=== PATIENT | male | born 1960 | race Hispanic/Latino ===

== ENCOUNTER 2017-03-15 14:53 | Emergency (ER) | payer MEDICAID, OTHER, SELFPAY ==
[2017-03-15 17:06] LABS: #Basophils 0.1 thou/uL (0.0-0.2); #Eosinphils 0.4 thou/uL (0.0-0.7); #Lymphocytes 1.7 thou/uL (1.20-3.40); #Monocytes 0.7 thou/uL (0.11-0.59); #Neutrophils 5.5 thou/uL (1.40-6.50); %Basophils 0.8 % (0.0-1.0); %Monocytes 8.1 % (0.0-10.0); Hematocrit 45.4 % (42.0-52.0); Red Blood Cell (RBC) Count 4.73 mill/uL (4.70-6.10); White Blood Cell (WBC) Count 8.3 thou/uL (4.8-10.8)
[2017-03-15 17:07] LABS: Bilirubin Negative (Negative); Blood, Urine Negative (Negative); Glucose, Urine (Dipstick) Negative (Negative); Ketone, Urine Negative (Negative); Nitrite Negative (Negative); Protein, Urine (Dipstick) Negative (Neg-Trace)
[2017-03-15 17:09] LABS: Bacteria/HPF 3+ HPF (None Seen); Hyaline Casts/LPF 0-3 HYALINE CAST LPF (0-3 Hyaline); RBC/HPF None Seen HPF (0-3); Squamous Epithelial None Seen HPF (0-3)
[2017-03-15 17:20] LABS: Amphetamine Not Detected (NotDetected); Methamphetamine Not Detected (NotDetected)
[2017-03-15 17:21] LABS: Methadone Not Detected (NotDetected)
[2017-03-15 17:35] LABS: ALT (SGPT) 63 U/L (8-55); AST (SGOT) 48 U/L (5-34); Acetaminophen Less than 6.0 mcg/mL (10.0-30.0); Alkaline Phosphatase 138 U/L (40-150); Anion Gap 10 mmol/L (10-20); BUN (Urea Nitrogen) 11 mg/dL (8.4-25.7); Bilirubin, Total 0.5 mg/dL (0.2-1.2); CK (CPK) 74 U/L (30-200); Calc. Creatinine Clearance 0 mL/min (70-130); Calcium 9.2 mg/dL (7.8-10.44); Carbon Dioxide 24 mmol/L (22-29); Chloride 105 mmol/L (98-107); Estimated GFR-MDRD 66; Globulin 3.3 g/dL (2.4-3.5); Protein, Total 7.3 g/dL (6.0-8.3); Salicylate Less than 8.0 mg/dL (15.0-30.0)
[2017-03-15] MEDS ORDERED: chlordiazePOXIDE HCl 25 MG CAP PO SCH (17:45)
[2017-03-15] MEDS ORDERED: chlordiazePOXIDE HCl 25 MG CAP ONE (18:25)
[2017-03-15] MEDS ORDERED: traZODone HCl 50 MG TAB ONE (22:55)
[2017-03-15] MEDS ORDERED: Lisinopril 10 MG TAB ONE ×2 (22:58→23:08)
[2017-03-15] MEDS ORDERED: Varenicline Tartrate 0.5 MG TAB PO SCH (23:15)
[2017-03-15] MEDS ORDERED: Atorvastatin Calcium 40 MG TAB PO SCH (23:15)
[2017-03-16] MEDS ORDERED: Varenicline Tartrate 0.5 MG TAB PO SCH (09:00)
[2017-03-16] MEDS ORDERED: NALTREXONE 50 MG PO SCH (09:00)
[2017-03-16] MEDS ORDERED: Atorvastatin Calcium 40 MG TAB PO SCH (21:00)
== END 2017-03-16 05:47 ==
LOC: ERS 14:53
DX: R45.851 Suicidal ideations (principal); F41.9 Anxiety disorder, unspecified; F31.9 Bipolar disorder, unspecified; E78.5 Hyperlipidemia, unspecified; I25.2 Old myocardial infarction; I10 Essential (primary) hypertension; K21.9 Gastro-esophageal reflux disease without esophagitis; Z87.891 Personal history of nicotine dependence; Z79.82 Long term (current) use of aspirin; Z79.899 Other long term (current) drug therapy
CPT/HCPCS: 36415; 80053; 80306; 80307; 81003; 81015; 82550; 84443; 85025; 93005

== ENCOUNTER 2017-05-05 04:53 | Observation (INO) | payer MEDICAID ==
[2017-05-05] MEDS ORDERED: Acetaminophen 500 MG TAB ONE (05:25)
[2017-05-05] MEDS ORDERED: Ketorolac Tromethamine 30 MG/ML VIAL ONE (05:25)
[2017-05-05 06:01] LABS: PTT 29.6 SEC (22.9-36.1); Prothrombin Time 13.5 SEC (12.0-14.7)
[2017-05-05 06:09] LABS: #Basophils 0.1 thou/uL (0.0-0.2); #Eosinphils 0.3 thou/uL (0.0-0.7); #Lymphocytes 2.2 thou/uL (1.20-3.40); #Monocytes 0.7 thou/uL (0.11-0.59); %Eosinophils 3.5 % (0.0-10.0); %Lymphocytes 23.3 % (21.0-51.0); %Monocytes 7.5 % (0.0-10.0); %Neutrophils 64.8 % (42.0-75.0); Hemoglobin 14.6 g/dL (14.0-18.0); Mean Corpuscular HGB CONC 33.2 g/dL (32.0-36.0); Mean Corpuscular Hemoglobin 31.4 pg (27.0-31.0); Mean Corpuscular Volume 94.6 fl (80.0-94.0); Mean Platelet Volume 8.1 fL (7.4-10.4); Platelet Count 209 thou/uL (130-400); RBC Distribution Width 12.8 % (11.5-14.5); Red Blood Cell (RBC) Count 4.66 mill/uL (4.70-6.10); White Blood Cell (WBC) Count 9.3 thou/uL (4.8-10.8)
[2017-05-05] MEDS ORDERED: traMADol HCl 50 MG TAB PO PRN ×2 (06:13)
[2017-05-05] MEDS ORDERED: Dextrose 5% in Water 1,000 ML IV PRN (06:13)
[2017-05-05] MEDS ORDERED: Dextrose 50% Abboject 50 ML SYRINGE SLOW IVP PRN (06:13)
[2017-05-05] MEDS ORDERED: Ondansetron HCl/PF 4 MG/2 ML Vial IVP PRN (06:13)
[2017-05-05] MEDS ORDERED: Ondansetron ODT 4 MG TAB PO PRN (06:13)
[2017-05-05 06:15] LABS: ALT (SGPT) 26 U/L (8-55); AST (SGOT) 33 U/L (5-34); Albumin 4.3 g/dL (3.5-5.0); Alkaline Phosphatase 116 U/L (40-150); Anion Gap 12 mmol/L (10-20); BUN (Urea Nitrogen) 12 mg/dL (8.4-25.7); Bilirubin, Total 0.9 mg/dL (0.2-1.2); Calc. Creatinine Clearance 0 mL/min (70-130); Calcium 9.4 mg/dL (7.8-10.44); Carbon Dioxide 24 mmol/L (22-29); Chloride 103 mmol/L (98-107); Estimated GFR-MDRD 68; Globulin 2.9 g/dL (2.4-3.5); Glucose 96 mg/dL (70-105); Lipase 29 U/L (8-78); Potassium 4.1 mmol/L (3.5-5.1); Protein, Total 7.2 g/dL (6.0-8.3); Sodium 135 mmol/L (136-145)
[2017-05-05] MEDS: Acetaminophen 325 MG TAB PO SCH ×4 (06:15→23:49)
[2017-05-05] MEDS ORDERED: traMADol HCl 50 MG TAB ONE (06:33)
--- NOTE | 2017-05-05 07:10 | HP ---
DATE OF ADMISSION: 05/05/2017 ATTENDING PHYSICIAN: Dr. Marr HISTORY OF PRESENT ILLNESS: Thi Hinton is a 57-year-old gentleman with a past medical history of hepatitis C, alcohol abuse, multiple CVAs with right-sided deficit/weakness, seizures and hypertensi on who presented to [facility] status post fall. Per patient, he was attempting to ambulate witho ut his cane and fell in his bedroom striking his lower abdomen on the bedpost. The patient denies lo ss of consciousness or head trauma. He was evaluated in the emergency room and found to have a large abdominal wall hematoma. The patient also endorses right lower extremity pain x2 days with calf ten derness. At the time of my evaluation, the patient had a chief complaint of right lower quadrant abd ominal pain and right leg pain which was not controlled with Tylenol or Toradol. He rates his pain a s a 10/10. The patient does seem to be a poor historian and has difficulty recalling some details. History obtained from patient and records review. ALLERGIES: Patient denies. HOME MEDICATIONS: The patient states he is on multiple blood pressure medications, but does not know names or doses. The patient states pharmacy is [facility] in [place]. PAST MEDICAL HISTORY: The patient states hypertension, history of stroke, history of seizure, record s review reveals the patient has a history of coronary artery disease, stroke x5 with residual right- sided deficit, hepatitis C. Anxiety and bipolar disorder. PAST SURGICAL HISTORY: Significant for a cholecystectomy, cardiac stenting and right knee surgery. SOCIAL HISTORY: The patient lives with multiple roommate's, states that he is a previous heavy drink er, but last drink was 2 months ago. Prior smoker, approximately [id number] history, last use of c igarettes 2 months ago. Denies illicit drug use. REVIEW OF SYSTEMS: Negative except as indicated in the HPI. PHYSICAL EXAMINATION: VITAL SIGNS: Blood pressure 150/92, pulse 62, respirations 20, temperature 98.7, O2 sat 100% on room air. GENERAL: A well-built male in no acute distress, resting in bed. HEAD: Normocephalic, atraumatic. EYES: Pupils were MARGE. Extraocular movements are intact. There is some evidence of very mild faci al drooping. NECK: Supple. Trachea is midline. Range of motion within normal limits for patient. CHEST/PULMONARY: Atraumatic. No tenderness to palpation. Normal work of breathing, symmetric rise. Lungs are clear to auscultation bilaterally. CARDIOVASCULAR: Regular rate and rhythm, no obvious murmurs, rubs or gallops. GASTROINTESTINAL: The abdomen is soft with an abrasion and a hematoma to the right lower quadrant. There is minimal tenderness to palpation. There is no guarding or rebound. There is no rigidity. T here are no signs of peritonitis. BACK: Reported as being within normal limits. MUSCULOSKELETAL: Bilateral upper extremities within normal limits. Left lower extremity within norm al limits. Right lower extremity with tenderness to palpation over the calf. Pulses are 2+ bilatera lly. There is no pitting edema noted. NEUROLOGIC: GCS is 15. LABORATORY DATA: WBC 9.3, hemoglobin 14.6, hematocrit 44.1, platelet count 209. INR is 1.0. Sodium 135, potassium 4.1, chloride 103, carbon dioxide 24, BUN 12, creatinine 1.12, glucose 96, AST and AL T within normal limits. Toxicology and alcohol levels pending. RADIOGRAPHIC FINDINGS: Official read for CT of the abdomen and pelvis is pending. There does appear to be a large hematoma in the right lower quadrant/abdominal wall per ER MDS discussion with radiolo gist, there is no evidence of active extravasation at this time. Multiple renal cysts and hepatic cy sts are noted. ASSESSMENT: 1. Status post mechanical fall. 2. Abdominal wall hematoma. 3. Acute traumatic pain. 4. Right lower extremity pain. 5. History of multiple cerebrovascular accidents with right-sided deficit. 6. History of hypertension. 7. History of ETOH abuse, last drink 2 months ago. PLAN: Admit to trauma services for observation and pain control. Right lower extremity ultrasound. Repeat H&H later this a.m. Physical therapy for mobilization and ambulation. Pain management. Plans for admission were discussed with the patient and all questions were answered at the time of is dictation. Trauma attending has been notified of admission.
--- NOTE | 2017-05-05 07:19 | ULT ---
ULTRASOUND WITH DOPPLER DUPLEX VENOUS LOWER EXTREMITY RIGHT: HISTORY: 57-year-old male with right lower extremity pain and edema. TECHNIQUE: Color flow Doppler, spectral waveform analysis of pulsed Doppler, and monson-scale imaging with manuel brody and augmentation, were used to evaluate the right common femoral, femoral, popliteal, posterior tibial, and superficial femoral, veins; and the proximal portions of the profunda femoral and greater saphenous, veins. FINDINGS: There is normal compressibility, demonstration of blood flow by color Doppler and pulsed Doppler, and response to augmentation, in all interrogated veins. IMPRESSION: Negative. No deep vein thrombosis in the right lower extremity. jn [] POS: OFF
--- NOTE | 2017-05-05 07:48 | CT ---
PRELIMINARY REPORT/[facility]/EMERGENCY AFTER HOURS PROCEDURE: EXAM: CT Abdomen and Pelvis With Intravenous Contrast EXAM DATE/TIME: Exam ordered 05/05/2017 5:34 AM CLINICAL HISTORY: 57 years old, male; Pain; Abdominal pain; Generalized; Patient HX: Pain, S/P fall TECHNIQUE: Axial computed tomography images of the abdomen and pelvis with intravenous contrast. Coronal reformatted images were created and reviewed. CONTRAST: 100 mL of ISOVUE administered intravenously. COMPARISON: No relevant prior studies available. FINDINGS: Lower thorax: There is subpleural atelectasis of the dependent portions of the lungs. ABDOMEN: Liver: There are polycystic kidneys and liver cysts suggestive of adult polycystic kidney disease. Gallbladder and bile ducts: There has been a cholecystectomy. No ductal dilation. Pancreas: The pancreas appears normal. No ductal dilation. Spleen: The spleen is normal. Adrenals: The adrenal glands are normal. Kidneys and ureters: See above. Stomach and bowel: The stomach is normal. The duodenum is unremarkable. No obstruction. No mucosal thickening. Appendix: No findings to suggest acute appendicitis. PELVIS: Bladder: Normal. No mass. Reproductive: Unremarkable as visualized. ABDOMEN and PELVIS: Intraperitoneal space: Normal. No free air. No significant fluid collection. Bones/joints: No acute fracture. No dislocation. Soft tissues: There is a 6.3 x 2.6 x 3.9 cm anterior RIGHT pelvic subcutaneous hematoma. Small hyperd ensity within the hematoma is noted which may represent active extravasation. There is a fatcontainin g umbilical hernia. Vasculature: Normal. No abdominal aortic aneurysm. Lymph nodes: Normal. No enlarged lymph nodes. IMPRESSION: There is a 6.3 x 2.6 x 3.9 cm anterior RIGHT pelvic wall subcutaneous hematoma. Small hyperdensity wi thin the hematoma is noted which may represent active extravasation. THIS REPORT CONTAINS FINDINGS THAT MAY BE CRITICAL TO PATIENT CARE. The findings were verbally commun icated via telephone conference with Stephanie Garces at 5:54 AM BACK END ENGINEER on 05/05/2017. The findings were acknowled ged and understood. Thank you for allowing us to participate in the care of your patient. Dictated and Authenticated by: Sathya Santos MD 05/05/2017 5:57 AM Central Time ([place] & [place]) FINAL REPORT CT ABDOMEN AND PELVIS WITH IV CONTRAST: I agree with the preliminary report given by Dr. Sathya Santos of [facility]. POS: [facility]
[2017-05-05] MEDS ORDERED: traMADol HCl 50 MG TAB PO SCH (09:30)
[2017-05-05] MEDS: Famotidine 20 MG TAB PO SCH ×2 (09:54→20:28)
[2017-05-05] MEDS: Sodium Chloride 0.9% 1,000 ML IV SCH ×2 (10:09→20:28)
[2017-05-05 10:55] LABS: Hemoglobin 14.2 g/dL (14.0-18.0)
[2017-05-05] MEDS: traMADol HCl 50 MG TAB PO SCH ×3 (12:50→23:48)
[2017-05-05] MEDS ORDERED: Iopamidol 370 76% 100 ML VIAL ONE (13:13)
[2017-05-05] MEDS ORDERED: Lisinopril 10 MG TAB PO SCH (16:15)
[2017-05-05] MEDS: Ibuprofen 600 MG TAB PO PRN (16:20)
[2017-05-05 16:22] LABS: Amphetamine Not Detected (NotDetected); Barbiturates Screen Detected (NotDetected); Benzodiazepine Screen Detected (NotDetected); Cocaine Metabolite Screen Not Detected (NotDetected); Medtox Control Line Valid? VALID (VALID); Medtox Reader # READER 1; Methadone Not Detected (NotDetected); Methamphetamine Not Detected (NotDetected); Opiate Screen Detected (NotDetected); Oxycodone Screen Not Detected (NotDetected); Phencyclidine (PCP) Not Detected (NotDetected); THC/Cannabinoid Screen Not Detected (NotDetected); Tricyclic Screen Not Detected (NotDetected)
--- NOTE | 2017-05-05 20:17 | PRG ---
DATE OF SERVICE: 05/05/2017 SUBJECTIVE: The patient is status post ground level fall in which he struck his lower abdomen on a b edpost. The patient was admitted for serial exams and repeat labs when it was noted on CT scan he griffin d a moderate size abdominal wall hematoma. This morning, the patient had no complaints. His pain wa s relatively well controlled. He had not been out of bed yet and had not been eating due to his n.p. o. status. The patient denies nausea or vomiting at this time. PHYSICAL EXAMINATION: VITAL SIGNS: Temperature is 98.0, heart rate 72, blood pressure 169/98, respirations 20, oxygen satu ration 99% on room air. GENERAL: The patient is resting comfortably in bed. He is alert and oriented x3. Prewitt coma scal e is 15. HEENT: Unremarkable. LUNGS: Clear to auscultation with good inspiratory and expiratory effort. HEART: Regular rate and rhythm. ABDOMEN: Soft with contusion noted in the right lower quadrant. The patient has an ice pack and Taz wrap around it, which we are going to replace with abdominal binder. Pelvis is stable. EXTREMITIES: The patient is neurovascularly intact x4. LABORATORY DATA: White blood cell count 9.3, hemoglobin 14.6, hematocrit 44.1, and platelets 209. S odium 135, potassium 4.1, chloride 103, CO2 of 24, BUN 12, creatinine 1.12, glucose 96. LFTs are unr emarkable. There are no radiographs to review this morning. ASSESSMENT AND PLAN: 1. Status post ground level fall. 2. Right lower quadrant abdominal wall contusion. Plan will be to continue serial exams, p.o. pain meds. Diet is tolerated and plan for discharge in t morning. The patient was evaluated and examined with Dr. Rushing during rounds this morning.
[2017-05-05] MEDS: traMADol HCl 50 MG TAB PO PRN (20:28)
[2017-05-05] MEDS: Lorazepam 1 MG TAB PO SCH (20:28)
[2017-05-05] MEDS ORDERED: hydrALAZINE 20 MG/ML VIAL SLOW IVP PRN (20:47)
[2017-05-05] MEDS ORDERED: traZODone HCl 50 MG TAB PO SCH (21:00)
[2017-05-05] MEDS ORDERED: Prevnar 13-Val Conj/PF 0.5 ML SYRINGE IM ONE (21:00)
--- NOTE | 2017-05-05 21:13 | PRG ---
DATE OF SERVICE: 05/05/2017 SUBJECTIVE: This is a 57-year-old male admitted earlier today status post ground level fall with abd ominal wall hematoma. The patient was started on a diet earlier today. Pain medications were adjust ed. On trauma evaluation, the patient was resting in bed and states pain was better controlled and p atient was started on home medications. OBJECTIVE: VITAL SIGNS: Vital signs reviewed. The patient is moderately hypertensive, but did receive his home dose of lisinopril recently. GENERAL: The patient is resting in bed, in no acute distress. RESPIRATORY: Breathing is nonlabored. ABDOMEN: Soft with mild tenderness, no guarding, rigidity, or signs of peritonitis. PLAN: Continue care as ordered. Continue to monitor. The patient is currently tolerating diet. If able to ambulate in a.m. and pain controlled, will be candidate for discharge.
[2017-05-06 02:29] VITALS: BMI 25.7
[2017-05-06 05:30] LABS: #Eosinphils 0.3 thou/uL (0.0-0.7); #Lymphocytes 1.8 thou/uL (1.20-3.40); #Monocytes 0.7 thou/uL (0.11-0.59); #Neutrophils 4.3 thou/uL (1.40-6.50); %Basophils 0.6 % (0.0-1.0); %Eosinophils 4.4 % (0.0-10.0); %Lymphocytes 25.2 % (21.0-51.0); %Monocytes 9.6 % (0.0-10.0); %Neutrophils 60.2 % (42.0-75.0); Mean Corpuscular HGB CONC 32.5 g/dL (32.0-36.0); Mean Corpuscular Hemoglobin 30.7 pg (27.0-31.0); Mean Corpuscular Volume 94.6 fl (80.0-94.0); Platelet Count 174 thou/uL (130-400); RBC Distribution Width 12.7 % (11.5-14.5); Red Blood Cell (RBC) Count 4.24 mill/uL (4.70-6.10); White Blood Cell (WBC) Count 7.1 thou/uL (4.8-10.8)
[2017-05-06] MEDS: traMADol HCl 50 MG TAB PO SCH ×2 (05:49→12:07)
[2017-05-06] MEDS: Acetaminophen 325 MG TAB PO SCH ×2 (05:50→12:07)
[2017-05-06] MEDS: Lorazepam 1 MG TAB PO SCH (08:11)
[2017-05-06] MEDS: Famotidine 20 MG TAB PO SCH (08:11)
[2017-05-06 08:14] VITALS: TEMP 97.5
[2017-05-06] MEDS ORDERED: Lisinopril 10 MG TAB PO SCH (09:00)
[2017-05-06] MEDS ORDERED: FLUoxetine HCl 20 MG CAP PO SCH (09:00)
[2017-05-06] MEDS ORDERED: Amlodipine 5 MG TAB PO SCH (09:00)
[2017-05-06] MEDS: Ibuprofen 600 MG TAB PO PRN (11:16)
[2017-05-06] MEDS: traMADol HCl 50 MG TAB PO PRN (12:08)
[2017-05-06 12:25] VITALS: BP 158/114
--- NOTE | 2017-05-08 11:20 | DIS ---
DATE OF ADMISSION: 05/05/2017 DATE OF DISCHARGE: 05/06/2017 ADMISSION DIAGNOSES: 1. Status post mechanical fall. 2. Abdominal wall hematoma. 3. Acute traumatic pain. 4. Right lower extremity pain. 5. History of multiple cerebrovascular accidents with right-sided deficit. 6. History of hypertension. 7. History of alcohol abuse. CONSULTATIONS: None. PROCEDURES: None. SUMMARY: The patient is a 57-year-old man who reportedly fell and struck his abdomen on a bedpost. HOSPITAL COURSE: The patient was brought to the Emergency Department, evaluated, examined and noted to have moderate size abdominal wall hematoma. He will be admitted overnight for pain control and to monitor his exam. The patient in the following day was tolerating a diet. He was ambulatory and hi s pain was controlled. The patient will be discharged home with abdominal binder and will follow up with the trauma clinic in 2 weeks, sooner as needed.
== END 2017-05-06 12:41 | disposition home or self-care (01) ==
LOC: ERS 04:53 → SURG A 06:00
PROVIDERS: ADMIT Surgery; ATTEND Surgery
DX: S30.1XXA Contusion of abdominal wall, initial encounter (principal); G89.11 Acute pain due to trauma; M79.661 Pain in right lower leg; I69.351 Hemiplegia and hemiparesis following cerebral infarction affecting right dominant side; I10 Essential (primary) hypertension; R56.9 Unspecified convulsions; I25.10 Atherosclerotic heart disease of native coronary artery without angina pectoris; F42.9 Obsessive-compulsive disorder, unspecified; F31.9 Bipolar disorder, unspecified; F10.11 Alcohol abuse, in remission; W18.30XA Fall on same level, unspecified, initial encounter; Y93.01 Activity, walking, marching and hiking; Y92.092 Bedroom in other non-institutional residence as the place of occurrence of the external cause; Z79.899 Other long term (current) drug therapy; Z90.49 Acquired absence of other specified parts of digestive tract; Z98.890 Other specified postprocedural states; Z86.19 Personal history of other infectious and parasitic diseases; Z87.891 Personal history of nicotine dependence
CPT/HCPCS: 36415; 74177; 80053; 80306; 80307; 83690; 85025; 85610; 85730; 96361; 96374; 96375; G0378; G0390; G8978-GP-CL; G8979-GP-CJ; J0360; J1885; J2270

== ENCOUNTER 2017-08-17 16:37 | Emergency (ER) | payer MEDICARE, MEDICAID | END 2017-08-17 18:40 | disposition home or self-care (01) | LOC: ERS 16:37 | DX: H60.92 Unspecified otitis externa, left ear (principal); E78.5 Hyperlipidemia, unspecified; I25.2 Old myocardial infarction; K21.9 Gastro-esophageal reflux disease without esophagitis; F41.9 Anxiety disorder, unspecified; F31.9 Bipolar disorder, unspecified; Z86.73 Personal history of transient ischemic attack (TIA), and cerebral infarction without residual deficits; Z87.891 Personal history of nicotine dependence; Z79.899 Other long term (current) drug therapy | CPT/HCPCS: 99283 ==

== ENCOUNTER 2017-08-27 09:40 | Emergency (ER) | payer MEDICARE, MEDICAID | END 2017-08-27 10:27 | disposition home or self-care (01) | LOC: ERS 09:40 | DX: I10 Essential (primary) hypertension (principal); H60.90 Unspecified otitis externa, unspecified ear; E78.5 Hyperlipidemia, unspecified; I25.2 Old myocardial infarction; K21.9 Gastro-esophageal reflux disease without esophagitis; F31.9 Bipolar disorder, unspecified; F41.9 Anxiety disorder, unspecified; Z86.73 Personal history of transient ischemic attack (TIA), and cerebral infarction without residual deficits; Z87.891 Personal history of nicotine dependence; Z79.82 Long term (current) use of aspirin; Z79.899 Other long term (current) drug therapy | CPT/HCPCS: 99283 ==

== ENCOUNTER 2018-06-18 01:02 | Emergency (ER) | payer MEDICARE ==
[2018-06-18] MEDS ORDERED: Acetaminophen 500 MG TAB ONE (01:42)
== END 2018-06-18 01:47 | disposition home or self-care (01) ==
LOC: ERS 01:02
DX: H60.91 Unspecified otitis externa, right ear (principal); I25.2 Old myocardial infarction; I10 Essential (primary) hypertension; E78.5 Hyperlipidemia, unspecified; K21.9 Gastro-esophageal reflux disease without esophagitis; Z87.891 Personal history of nicotine dependence; Z86.73 Personal history of transient ischemic attack (TIA), and cerebral infarction without residual deficits
CPT/HCPCS: 99283

== ENCOUNTER 2019-03-21 01:14 | Observation (INO) | payer MEDICARE ==
--- NOTE | 2019-03-21 02:24 | PDOC.FPRHP ---
- History of Present Illness Chief Complaint: Right-Sided Facial Drooping, Weakness History of Present Illness: Mr. Hinton is a 59 y/o male with a PMH significant for multiple CVAs, CAD and HTN as well as MDD and recent suicidal ideation who presents to the ED following subjective weakness. He states that he had been at his in-patient psychiatric facility when he noticed subjective facial drooping, accompanied by dysarthria, right-sided weakness, nausea and vomiting. He felt nauseous and unsteady on his feet and felt that he was having another stroke, which prompted his trip to the ED. He denies any fevers, chills, changes in vision/hearing, chest pain, SOB, ABD pain, dysuria, hematuria or bloody stools. When questioned specifically about his psychiatric history, he denied active suicidal or homicidal ideal. ED Course: CTA Head/Neck revealed Left ICA stenosis of ~50%. - Allergies/Adverse Reactions Allergies Allergy/AdvReac Type Severity Reaction Status Date / Time No Known Drug Allergies Allergy Verified 08/23/15 19:36 - Home Medications Medication Instructions Recorded Confirmed Type Amlodipine [Norvasc] 5 mg PO DAILY #30 tab 08/07/16 05/05/17 Rx Lisinopril [Zestril] 10 mg PO DAILY #30 tab 08/07/16 05/05/17 Rx FLUoxetine HCl 20 mg PO DAILY 05/05/17 05/05/17 History LORazepam [Lorazepam] 0.5 mg PO BID 05/05/17 05/05/17 History Phenytoin Sodium Extended 200 mg PO HS 05/05/17 05/05/17 History [Dilantin] traZODone HCl [Trazodone HCl] 50 mg PO HS 05/05/17 05/05/17 History Acetaminophen [Tylenol Regular 650 mg PO Q6H tab 05/06/17 Rx Strength] Ibuprofen [Motrin] 600 mg PO Q8H PRN tab 05/06/17 Rx traMADol HCl [Ultram] 50 mg PO Q6H PRN #30 tab 05/06/17 Rx traMADol HCl [Ultram] 50 mg PO Q6HR #30 tab 05/06/17 Rx Comments: Above medication regimen was obtained via chart review. - History PMHx: Multiple TIAs, CAD, HTN, MDD PSHx: None FHx: +DM2, +HTN, +MDD Social: Previously abused EtOH and tobacco, but states that he has not had either since . Denies drug abuse. Code: Full - Patient stated that he had an [id number] DNAR that was signed by his medical power of trial attorney. Will investigate further. - Review of Systems General: reports: fatigue. denies: fever/chills, weight/appetite/sleep changes , night sweats Eyes: denies: eye pain, vision changes ENT: denies: nasal congestion, rhinorrhea Respiratory: reports: exercise intolerance. denies: cough, congestion, shortness of breath Cardiovascular: denies: chest pain, palpitation Gastrointestinal: reports: nausea. denies: vomiting, diarrhea, constipation, abdominal pain, GI bleeding Genitourinary: denies: dysuria, polyuria Skin: denies: rashes, lesions Musculoskeletal: denies: pain, tenderness Neurological: reports: weakness, other (Subjective right-sided weakness and facial drooping.) Psychological: reports: anxiety, depression - Vital signs BP: [149/90] HR: [61] RR: [18] Tmax: [97.8] Pox: [97]% on [Room Air] Wt: [] - Physical Exam Constitutional: NAD, awake, alert and oriented, well developed HEENT: normocephalic and atraumatic, PERRLA, EOMI, conjunctiva clear, no scleral icterus, grossly normal vision, grossly normal hearing, normal nasal mucosa, MMM, oropharynx clear, good dention Neck: supple, FROM, trachea midline, no LAD, no JVD Chest: no-tender to palpation, no lesions Heart: RRR, normal S1/S2, no murmurs/rubs/gallops, pulses present, no edema Lungs: CTAB, no respiratory distress, good air movement, no rales/rhonchi, no wheezing, no retractions Abdomen: soft, non-tender, bowel sounds present, no masses/distention, no hernias Musculoskeletal: normal structure, ROM grossly normal Neurological: other (Mild right-sided facial drooping, audible dysarthria, + finger to nose on right side) Skin: no rash/lesions, capillary refill <2 seconds Heme/Lymphatic: no unusual bruising or bleeding, no purpura, no petechia, no LAD Psychiatric: intact recent and remote memory FMR H&P: Results - Labs Result Diagrams: 03/21/19 03:16 03/21/19 03:16 FMR H&P: A/P - Problem List (1) MDD (major depressive disorder) Current Visit: Yes Status: Acute Code(s): F32.9 - MAJOR DEPRESSIVE DISORDER , SINGLE EPISODE, UNSPECIFIED (2) Suicidal behavior Current Visit: Yes Status: Acute Code(s): R46.89 - OTHER SYMPTOMS AND SIGNS INVOLVING APPEARANCE AND BEHAVIOR (3) TIA (transient ischemic attack) Current Visit: Yes Status: Acute Code(s): G45.9 - TRANSIENT CEREBRAL ISCHEMIC ATTACK, UNSPECIFIED (4) CHARLETTE (acute kidney injury) Current Visit: No Status: Acute Code(s): N17.9 - ACUTE KIDNEY FAILURE, UNSPECIFIED (5) CVA (cerebral vascular accident) Current Visit: No Status: Acute Code(s): I63.9 - CEREBRAL INFARCTION, UNSPECIFIED (6) History of bipolar disorder Current Visit: No Status: Acute Code(s): Z86.59 - PERSONAL HISTORY OF OTHER MENTAL AND BEHAVIORAL DISORDERS - Plan Patient is a 59 y/o male admitted to the Stroke Floor following an episodes of subjective facial drooping, dysarthria, difficulty with ambulation, and unilateral weakness. 1. TIA -Patient states that subjective neurologic symptoms have since improved and that he is at his baseline -Imaging performed at outside ED was negative for new-onset ischemic / hemorrhagic event -Difficult to fully assess based on extensive history of CVAs -Neuro Checks Q4H -ASA, statin -Allow for Permissive Hypertension 2. Suicidal Ideation -Previously at in-patient psychiatric facility due to self-admitted suicidal ideation -Ensure sitter is present during hospital stay -Adjusted meal silverware -Will confirm DNAR status 3. Carotid Artery Stenosis -Measured to be ~50% at outside facility -Does not meet requirement for surgical intervention -Continue to monitor and ensure statin compliance Code: DNAR - Will continue to evaluate Diet: Heart Healthy incl. Low Sodium Activity: Strict Bedrest Dispo: Patient is currently admitted to the Stroke Floor for observation. Based on imaging and physical evaluation, CVA appears unlikely at this point. Allow for Permissive HTN and trend Neuro Checks Q4H. Expected LOS < 24H. FMR H&P: Upper Level - Pertinent history 59 y/o M PMHx CVA, CAD, HTN, HLD, Bipolar II, h/o psychosis, recent suicidal ideations admitted to [facility] since 03/18/19 presents to ED for new neurologic deficits. The patient reports he was at [facility] and began feeling nausea and had an episode of emesis. He then felt like he was having a stroke with worsened slurred speech and left sided weakness. He reports a H/A that had been ongoing for 3 days now. He states the weakness has improved since going to the ED. He was seen first in [facility] and given aspirin. His CTA there showed 50% stenosis of the origin of his L internal carotid artery. He was transferred here for concern he might need surgery. - Pertinent findings BP: 149/90, MAP: 109, Pulse: 61, Resp: 18 (Non-Labored), Temp: 97.8 (Oral), O2 sat: 97 on (Room Air) PE: Gen - alert, oriented, NAD CV - RRR, no murmurs Lungs - CTAB, no wheezes Abd - supraumbilical hernia that is reducible, NTTP Neuro - CN II-XII intact with the exception of some mild R facial droop, 5/5 strength in all extremities Labs: Trop < 0.017, PT 11.1, INR 1.1, PTT 26.9, BUN 27, Cr 1.5, GFR 51 CT head - no acute change CTA head/neck - 50% stenosis at origin of L internal carotid artery - Plan Date/Time: 03/21/19 0223 IJenna MD, PGY-3, have evaluated this patient and agree with findings/ plan as outlined by education intern resident. Pertinent changes/additions are listed here. CVA vs TIA Pt appears to have left sided weakness that is now resolved, but residual slurred speech. Pt has some slurred speech at baseline and R sided facial droop from prior stroke. -Will obs on stroke -Continue pravastatin 80mg -Continue aspirin 81mg -Neuro checks q4h -PT/OT/speech -NPO pending bedside swallow -Fasting Lipid panel -Permissive HTN for 24 hours -MRI brain Carotid Stenosis Pt with 50% stenosis at origin of L internal carotid based on NASCET criteria -Continue pravastatin -Continue aspirin -Good BP control once outside of permissive HTN for 24 hour range -May need surgical consideration if worsens in the future Suicidal Ideation Pt with recent SI and has been hospitalized at [facility] -Will put on suicide precautions -Continue risperdone, buspirone, divalproex, fluoxetine Bipolar II disorder -Continue meds as above BPH -Continue avodart and flomax Insomnia -Continue melatonin and trazodone Dispo: Obs on stroke LOS: Likely less than 48 hours
[2019-03-21] MEDS ORDERED: hydrALAZINE 20 MG/ML VIAL SLOW IVP PRN (02:46)
[2019-03-21] MEDS ORDERED: traZODone HCl 50 MG TAB PO PRN (03:16)
[2019-03-21 03:35] LABS: #Basophils 0.1 thou/uL (0.0-0.2); #Eosinphils 1.2 thou/uL (0.0-0.7); #Lymphocytes 2.5 thou/uL (1.20-3.40); #Monocytes 0.7 thou/uL (0.11-0.59); #Neutrophils 3.4 thou/uL (1.40-6.50); %Basophils 1.3 % (0.0-1.0); %Eosinophils 14.8 % (0.0-10.0); %Lymphocytes 31.7 % (21.0-51.0); %Monocytes 8.5 % (0.0-10.0); %Neutrophils 43.7 % (42.0-75.0); Mean Corpuscular HGB CONC 33.6 g/dL (32.0-36.0); Mean Corpuscular Hemoglobin 31.3 pg (27.0-31.0); Mean Corpuscular Volume 93.1 fL (78.0-98.0); Mean Platelet Volume 8.9 fL (7.4-10.4); Platelet Count 118 thou/uL (130-400); RBC Distribution Width 13.4 % (11.5-14.5); Red Blood Cell (RBC) Count 4.48 mill/uL (4.70-6.10); White Blood Cell (WBC) Count 7.8 thou/uL (4.8-10.8)
[2019-03-21] MEDS ORDERED: Acetaminophen 325 MG TAB ONE (03:36)
[2019-03-21 03:40] LABS: ALT (SGPT) 20 U/L (8-55); AST (SGOT) 28 U/L (5-34); Albumin 4.1 g/dL (3.5-5.0); Alkaline Phosphatase 73 U/L (40-110); Anion Gap 11 mmol/L (10-20); BUN (Urea Nitrogen) 24 mg/dL (8.4-25.7); Bilirubin, Total 0.6 mg/dL (0.2-1.2); Calc. Creatinine Clearance 0 mL/min (70-130); Calcium 9.4 mg/dL (7.8-10.44); Carbon Dioxide 24 mmol/L (22-29); Cardiac Risk 2.2 (Less than 4.5); Chloride 107 mmol/L (98-107); Cholesterol 126 mg/dl (< 200 Desired); Estimated GFR-MDRD 52; Globulin 3.2 g/dL (2.4-3.5); Glucose 85 mg/dL (70-105); HDL Cholesterol 58 mg/dL (>60 Neg Risk); LDL Cholesterol, Calculated 55 mg/dL; Potassium 4.3 mmol/L (3.5-5.1); Protein, Total 7.3 g/dL (6.0-8.3); Sodium 138 mmol/L (136-145); Triglycerides 64 mg/dL (Less than 150)
--- NOTE | 2019-03-21 06:30 | PDOC.FM ---
- Objective Result Diagrams: 03/21/19 03:16 03/21/19 03:16
[2019-03-21] MEDS ORDERED: Amlodipine 5 MG TAB ONE (08:19)
[2019-03-21] MEDS ORDERED: Aspirin Chewable 81 MG TAB ONE (08:19)
[2019-03-21] MEDS: Aspirin 81 mg Enteric Coated Tablet PO SCH (08:27)
[2019-03-21] MEDS: Pregabalin 50 MG CAP PO SCH ×3 (08:29→21:57)
[2019-03-21] MEDS: FLUoxetine HCl 20 MG CAP PO SCH (08:30)
[2019-03-21] MEDS: busPIRone HCl 5 MG TAB PO SCH ×3 (08:32→21:56)
[2019-03-21] MEDS: Divalproex Sodium DR 500 MG TAB PO SCH ×3 (08:32→21:58)
[2019-03-21] MEDS: Tamsulosin HCl 0.4 MG CAP PO SCH (08:34)
[2019-03-21] MEDS: Dutasteride 0.5 MG CAP PO SCH (08:34)
[2019-03-21] MEDS ORDERED: Famotidine 20 MG TAB ONE (08:38)
[2019-03-21] MEDS ORDERED: risperiDONE 1 MG TAB ONE (08:38)
[2019-03-21] MEDS: risperiDONE 1 MG TAB PO SCH (08:42)
[2019-03-21] MEDS: Famotidine 20 MG TAB PO SCH ×2 (08:42→21:58)
[2019-03-21] MEDS ORDERED: Pravastatin Sodium 40 MG TAB PO SCH (09:00)
[2019-03-21] MEDS ORDERED: Amlodipine 5 MG TAB PO SCH (09:00)
--- NOTE | 2019-03-21 10:40 | MRI ---
MRI BRAIN NONCONTRAST: DATE: 03/21/2019 HISTORY: 59-year-old male with altered mental status and right-sided weakness. FINDINGS: There is no obstructive hydrocephalus. There is no midline shift or any other evidence of mass effect . There is no extra-axial fluid collection. There are T2-hyperintensities in the periventricular and deep cerebral white matter involving brito radiata and centrum semiovale, consistent with chroni c ischemic white matter changes due to microvascular atherosclerosis. There is diffuse brain parenchymal volume loss. There is no evidence of recent hemorrhage or restricted diffusion. There are numerous tiny old lacunar infarctions involving bilateral thalami, bilateral basal ganglia, caudate nuclei and bilateral periventricular white matter, plus mira. There are also numerous small a nd tiny old infarctions in the bilateral cerebellar hemispheres, many of them wedge-shaped. There are multiple punctate foci of hemosiderin in bilateral basal ganglia, left thalamus, and mira, and a few scattered elsewhere in the cerebral hemispheres. These represent numerous remote microhemorrhages. IMPRESSION: 1) Involutional changes and moderate chronic ischemic white matter changes. 2) multiple small old infarctions in the bilateral cerebellar hemispheres. 3) numerous tiny old lacunar infarctions in the bilateral corpus striatum, thalami, and brainstem. 5) several punctate foci of remote microhemorrhages: Evidence for chronic hypertensive encephalopathy .
[2019-03-21 16:39] VITALS: BMI 31.6
[2019-03-21] MEDS: Ondansetron ODT 4 MG TAB PO PRN (17:38)
[2019-03-21] MEDS ORDERED: Atorvastatin Calcium 40 MG TAB PO SCH ×2 (21:00)
[2019-03-21] MEDS: Pravastatin Sodium 40 MG TAB PO SCH (21:56)
--- NOTE | 2019-03-22 00:14 | CON ---
DATE OF CONSULTATION: 03/21/2019 CONSULTING PHYSICIAN: Hospitalist Service. IMPRESSION: 1. Subjective weakness without any evidence of objective abnormalities. 2. History of prior stroke with some right-sided weakness. 3. Depression. 4. Coronary artery disease with prior stenting. 5. Hypertension. PLAN: Continue aspirin and restart his statin. HISTORY OF PRESENT ILLNESS: Mr. Hinton is a 59-year-old man, who has recently been in the [facility]. He felt like he had some increased weakness on the right side compared to his baseline. He came to the hospital for evaluation. His MRI of the brain showed multiple old lacunar infarctions, but no acute changes. His most recent echo and CT angiogram were in 2017. There were no remarkable findings. His lab work on admission at this time was unremarkable as well. PAST MEDICAL HISTORY: As listed above. ALLERGIES: NONE REPORTED. SOCIAL HISTORY: No tobacco use. FAMILY HISTORY: Noncontributory. REVIEW OF SYSTEMS: Ten-system review of systems is otherwise negative. PHYSICAL EXAMINATION: GENERAL: He is a well-nourished, middle-aged man, lying in bed, in no acute distress. VITAL SIGNS: Have been stable. He is in normal sinus rhythm. HEENT: Pupils are equal and reactive. Conjunctivae are clear. Oropharynx is clear. NECK: Supple. EXTREMITIES: No cyanosis or edema. NEUROLOGIC: He is alert and cooperative. His speech is fluent and clear. He follows commands well. There is no facial asymmetry. I did not elicit any fix or drift. He has good medical recruiter strength bilaterally. No tremor or dysmetria is present. Sensation is subjectively decreased on the right side. Gait is not tested. SUMMARY: This is a middle-aged man with some subjective changes without any objective findings on MRI, I suspect is probably related to his depression. He has not been compliant with his statin. I advised him that he needs to get back on his prior treatment for stroke prevention. Echocardiogram is pending. He can be discharged at your discretion. Job ID: [id number]
--- NOTE | 2019-03-22 07:29 | PDOC.FM ---
- Subjective Subjective: Patient reports he still has worsened numbness in his right arm, is asking how long it will last today. Otherwise he reports nausea. Reports he is eating, drinking, voiding, and stooling well. - Objective Vital Signs & Weight: Vital Signs (12 hours) Temp Pulse Resp BP Pulse Ox 03/22/19 03:40 98.5 F 66 14 164/84 H 96 03/21/19 23:35 97.9 F 62 16 147/78 H 98 03/21/19 19:45 97.4 F L 63 16 184/108 H 96 Weight Weight 94.483 kg I&O: 03/21/19 03/22/19 03/23/19 06:59 06:59 06:59 Intake Total 360 Output Total 630 Balance -270 Result Diagrams: 03/21/19 03:16 03/21/19 03:16 Phys Exam - Physical Examination Constitutional: NAD Respiratory: no wheezing, clear to auscultation bilateral Cardiovascular: RRR, no significant murmur Gastrointestinal: soft, no distention Musculoskeletal: no edema, pulses present numbness right arm, face, and leg. 4/5 strength BUE, unchanged Psychiatric: normal affect Skin: normal turgor, cap refill <2 seconds Dx/Plan (1) Suicidal ideation Code(s): R45.851 - SUICIDAL IDEATIONS Status: Acute (2) TIA (transient ischemic attack) Code(s): G45.9 - TRANSIENT CEREBRAL ISCHEMIC ATTACK, UNSPECIFIED Status: Acute (3) CKD (chronic kidney disease), stage III Status: Chronic (4) History of bipolar disorder Code(s): Z86.59 - PERSONAL HISTORY OF OTHER MENTAL AND BEHAVIORAL DISORDERS Status: Chronic (5) Medical non-compliance Code(s): Z91.19 - PATIENT'S NONCOMPLIANCE W OTH MEDICAL TREATMENT AND REGIMEN Status: Acute (6) CAD (coronary artery disease) Code(s): I25.10 - ATHSCL HEART DISEASE OF [place] CORONARY ARTERY W/O ANG PCTRS Status: Chronic (7) HLD (hyperlipidemia) Code(s): E78.5 - HYPERLIPIDEMIA, UNSPECIFIED Status: Chronic (8) Hypertension Code(s): I10 - ESSENTIAL (PRIMARY) HYPERTENSION Status: Chronic - Plan Plan: TIA vs conversion disorder Pt reported worsened R sided weakness that is now resolved, but residual slurred speech and residual right arm numbness (new as of this episode per patient). Pt has some slurred speech at baseline and R sided facial droop from prior stroke. -Continue pravastatin 80mg and aspirin 81mg -PT/OT/speech -MRI brain showed old strokes, no new stroke -Dr. Sexton consulted, neuro, appreciate recs -likely his symptoms are related to his depression -noncompliance with statin, restart old regimen HTN -restart home meds L ICA Carotid Stenosis Pt with 50% stenosis at origin of L internal carotid based on NASCET criteria -Continue pravastatin and aspirin -No interventions at this time Suicidal Ideation Pt with recent SI and has been hospitalized at [facility] -denies current SI -Continue risperdone, buspirone, divalproex, fluoxetine Bipolar II disorder -Continue meds as above BPH -Continue avodart and flomax Insomnia -Continue melatonin and trazodone Dispo: Obs on stroke LOS: Likely home today, pending results of echo Addendum - Attending - Attending Attestation Date/Time: 03/22/19 1945 I personally evaluated the patient and discussed the management with Dr. Merrill. I agree with the History, Examination, Assessment and Plan documented above with any addition or exceptions noted below. Symptoms stable and unchanged. Neuro input appreciated. D/C post Echo, and OP therapy evals.
[2019-03-22] MEDS: Pregabalin 50 MG CAP PO SCH ×3 (08:31→20:32)
[2019-03-22] MEDS: Famotidine 20 MG TAB PO SCH ×2 (08:31→20:33)
[2019-03-22] MEDS: Tamsulosin HCl 0.4 MG CAP PO SCH (08:31)
[2019-03-22] MEDS: FLUoxetine HCl 20 MG CAP PO SCH (08:31)
[2019-03-22] MEDS: Ondansetron ODT 4 MG TAB PO PRN ×2 (08:32→20:38)
[2019-03-22] MEDS: Aspirin 81 mg Enteric Coated Tablet PO SCH (08:32)
[2019-03-22] MEDS: busPIRone HCl 5 MG TAB PO SCH ×3 (08:32→20:32)
[2019-03-22] MEDS: Divalproex Sodium DR 500 MG TAB PO SCH ×3 (08:32→20:32)
[2019-03-22] MEDS: Dutasteride 0.5 MG CAP PO SCH (08:33)
[2019-03-22] MEDS: risperiDONE 1 MG TAB PO SCH (08:33)
[2019-03-22] MEDS ORDERED: Amlodipine 5 MG TAB PO SCH (09:00)
[2019-03-22] MEDS: Pravastatin Sodium 40 MG TAB PO SCH (20:33)
--- NOTE | 2019-03-23 05:44 | PDOC.FM ---
- Subjective Subjective: He is doing well. He has no complaints. He is eating, drinking, and sleeping well. - Objective MAR Reviewed: Yes Vital Signs & Weight: Vital Signs (12 hours) Temp Pulse Resp BP Pulse Ox 03/23/19 04:00 98.8 F 62 16 148/86 H 97 03/22/19 23:47 98.6 F 61 16 133/94 H 96 03/22/19 19:58 98.1 F 59 L 16 143/76 H 96 Weight Weight 94.483 kg I&O: 03/21/19 03/22/19 03/23/19 06:59 06:59 06:59 Intake Total 360 480 Output Total 630 200 Balance -270 280 Result Diagrams: 03/21/19 03:16 03/23/19 05:57 Phys Exam - Physical Examination Constitutional: NAD HEENT: PERRLA, moist MMs Neck: no nodes, supple Respiratory: clear to auscultation bilateral Cardiovascular: RRR, no significant murmur Gastrointestinal: soft, non-tender, positive bowel sounds Musculoskeletal: no edema, pulses present Neurological: normal sensation Lymphatic: no nodes Psychiatric: normal affect Skin: no rash Dx/Plan (1) Suicidal ideation Code(s): R45.851 - SUICIDAL IDEATIONS Status: Acute (2) TIA (transient ischemic attack) Code(s): G45.9 - TRANSIENT CEREBRAL ISCHEMIC ATTACK, UNSPECIFIED Status: Acute (3) Hypertension Code(s): I10 - ESSENTIAL (PRIMARY) HYPERTENSION Status: Chronic (4) BPH (benign prostatic hyperplasia) Code(s): N40.0 - BENIGN PROSTATIC HYPERPLASIA WITHOUT LOWER URINRY TRACT SYMP Status: Acute (5) Insomnia Code(s): G47.00 - INSOMNIA, UNSPECIFIED Status: Acute (6) History of bipolar disorder Code(s): Z86.59 - PERSONAL HISTORY OF OTHER MENTAL AND BEHAVIORAL DISORDERS Status: Chronic (7) CKD (chronic kidney disease), stage III Status: Chronic - Plan Plan: Mr. Hinton is a 59 y/o male with a PMH significant for multiple CVAs, CAD and HTN as well as MDD and recent suicidal ideation who presents to the ED following subjective weakness. 1. TIA vs conversion disorder Pt reported worsened R sided weakness that is now resolved, but residual slurred speech and residual right arm numbness (new as of this episode per patient). Pt has some slurred speech at baseline and R sided facial droop from prior stroke. * Continue pravastatin 80mg and aspirin 81mg * PT/OT/speech * MRI brain showed old strokes, no new stroke * Dr. Sexton consulted, neuro, appreciate recs * likely his symptoms are related to his depression * noncompliance with statin, restart old regimen 2. HTN * Restart home meds * Increased Amlodipine to 10 mg daily 3. L ICA Carotid Stenosis Pt with 50% stenosis at origin of L internal carotid based on NASCET criteria * Continue pravastatin and aspirin * No interventions at this time 4. Suicidal Ideation Pt with recent SI and has been hospitalized at [facility] * denies current SI * Continue risperdone, buspirone, divalproex, fluoxetine 5. Bipolar II disorder * Continue meds as above 6. BPH * Continue avodart and flomax 7. Insomnia * Continue melatonin and trazodone 8. CKD Stage 3, Improving Cre: 1.77, GFR:40 * Over the past year his creatinine has fluctuated from 1.5-2.1 Dispo: Obs on stroke LOS: Likely d/c today, pending bp control. Addendum - Attending - Attending Attestation Date/Time: 03/23/19 1016 I personally evaluated the patient and discussed the management with Dr. Schaefer. I agree with the History, Examination, Assessment and Plan documented above with any addition or exceptions noted below. Patient sitting up in the chair comfortably. Increasing amlodipine to 10 mg. Monitor bp. Pt appears stable to return to [facility].
[2019-03-23 06:23] LABS: Anion Gap 12 mmol/L (10-20); BUN (Urea Nitrogen) 28 mg/dL (8.4-25.7); Calc. Creatinine Clearance 60 mL/min (70-130); Calcium 9.2 mg/dL (7.8-10.44); Carbon Dioxide 26 mmol/L (22-29); Chloride 107 mmol/L (98-107); Estimated GFR-MDRD 40; Glucose 83 mg/dL (70-105); Potassium 5.1 mmol/L (3.5-5.1); Sodium 140 mmol/L (136-145)
[2019-03-23] MEDS: Tamsulosin HCl 0.4 MG CAP PO SCH (08:31)
[2019-03-23] MEDS: busPIRone HCl 5 MG TAB PO SCH (08:31)
[2019-03-23] MEDS: FLUoxetine HCl 20 MG CAP PO SCH (08:32)
[2019-03-23] MEDS: Aspirin 81 mg Enteric Coated Tablet PO SCH (08:32)
[2019-03-23] MEDS: Dutasteride 0.5 MG CAP PO SCH (08:32)
[2019-03-23] MEDS: Divalproex Sodium DR 500 MG TAB PO SCH (08:32)
[2019-03-23] MEDS: risperiDONE 1 MG TAB PO SCH (08:32)
[2019-03-23] MEDS: Pregabalin 50 MG CAP PO SCH (08:33)
[2019-03-23] MEDS: Famotidine 20 MG TAB PO SCH (08:33)
[2019-03-23] MEDS: Ondansetron ODT 4 MG TAB PO PRN (08:37)
[2019-03-23] MEDS ORDERED: Lisinopril 10 MG TAB PO SCH (09:00)
[2019-03-23] MEDS ORDERED: Amlodipine 10 MG TAB PO SCH (09:00)
[2019-03-23] MEDS ORDERED: Ondansetron ORAL SOLN. 4 MG/5 ML UDCUP PO PRN (10:18)
[2019-03-23 11:39] VITALS: BP 133/82; TEMP 98.5
--- NOTE | 2019-03-25 12:22 | DIS ---
DATE OF ADMISSION: 03/21/2019 DATE OF DISCHARGE: 03/23/2019 RESIDENT: Sal Schaefer MD ADMITTING ATTENDING: Shar Villegas MD DISCHARGE ATTENDING: Genevieve Suazo MD CONSULTS: Dr. Sexton on 03/21. Some subjective changes were found on exam without any objective on MRI, probably related to depression. He has been compliant with his statin and advised him needs to get back on prior treatment for stroke prevention. PROCEDURES: Brain MRI on 03/21 showed involutional changes and moderate chronic ischemic white matter changes. Multiple small old infarcts in the bilateral cerebral hemispheres. Numerous tiny old lacunar infarcts in the bilateral corpus striatum, thalami, and brainstem. Several punctate foci of remote microhemorrhages evident for chronic hypertensive encephalopathy. Echo on 03/22 shows EF of 60% to 65% with flow reversal noted suggestive of diastolic dysfunction. Left atrium mildly dilated. Mitral annular calcification present. Mild mitral regurgitation present. Aortic valve was sclerotic and mild tricuspid regurgitation. PRIMARY DIAGNOSIS: Conversion disorder. SECONDARY DIAGNOSES: 1. Hypertension. 2. Left ICA carotid stenosis. 3. Suicidal ideation. 4. Bipolar disorder type 2. 5. Benign prostatic hyperplasia. 6. Insomnia. 7. Chronic kidney disease stage 3. DISCHARGE MEDICATIONS: Continue home medications. Increased amlodipine to 10 mg p.o. daily. DISCONTINUED MEDICATIONS: Lovenox, trazodone. HISTORY OF PRESENT ILLNESS: Mr. Hinton is a 59-year-old male with past medical history significant for multiple CVAs, coronary artery disease, and hypertension as well as MDD and recently suicidal ideation, who presents to the ED following subjective weakness. He states that he has been at his inpatient psychiatric facility when he noted subjective facial drooping accompanied by dysarthria, right-sided weakness, nausea, and vomiting. He felt nauseous and unsteady on his feet and felt that he was having another stroke, which prompted his trip to the ED. He denies any fevers, chills, changes in vision or hearing, chest pain, shortness of breath, abdominal pain, dysuria, hematuria, or blood in the stools. When questioned specifically about his psychiatric history, he denied active suicidal or homicidal ideation. In the ED, CTA of head and neck revealed a left ICA stenosis of 60%. 1. Conversion disorder. The patient reported worsening right-sided weakness that has now resolved, but residual slurred speech and residual right arm numbness arenew as of this episode per the patient and the patient has some slurred speech at baseline and right-sided facial droop from prior stroke. * Continue pravastatin 80 mg and aspirin 81 mg. * PT, OT, and Speech were ordered. * MRI of brain showed old strokes, no new strokes. * Dr. Sexton consulted and recommendations as above. 2. Hypertension. * Increased amlodipine to 10 mg daily as well as continued other home medications. 3. Left ICA stenosis. * The patient with 50% stenosis at origin of left internal carotid based on NASCET criteria. * Continue pravastatin and aspirin. * No intervention at this time. 4. Suicidal ideation. * The patient with a recent suicidal ideation, has been hospitalized at [facility]. * Denies any current suicidal ideation. * Continue risperidone, buspirone, divalproex, and fluoxetine. 5. Bipolar type 2 disorder. * Continue medications as above. 6. Benign prostatic hyperplasia. * Continue Avodart and Flomax. 7. Insomnia. * Continue melatonin and trazodone. 8. Chronic kidney disease stage 3. * Creatinine 1.77 with a GFR 40. * Over the past year, his creatinine has fluctuated from 1.5 to 2.1. DISPOSITION: Stable. DISCHARGE INSTRUCTIONS: 1. Location: Home. 2. Diet: Heart healthy, low sodium. 3. Activity: As tolerated. 4. Follow up with Dr. José Luis Craig in 7 days. Job ID: [id number] MTDD
== END 2019-03-23 15:07 | disposition home or self-care (01) ==
LOC: ERS 01:14 → ERHOLD 01:45 → 2SE 10:34
PROVIDERS: ADMIT Student in an Organized Health Care Education/Training Program; ATTEND Student in an Organized Health Care Education/Training Program
DX: F44.9 Dissociative and conversion disorder, unspecified (principal); I12.9 Hypertensive chronic kidney disease with stage 1 through stage 4 chronic kidney disease, or unspecified chronic kidney disease; N18.3 Chronic kidney disease, stage 3 (moderate); N17.9 Acute kidney failure, unspecified; I65.22 Occlusion and stenosis of left carotid artery; R45.851 Suicidal ideations; F31.81 Bipolar II disorder; N40.0 Benign prostatic hyperplasia without lower urinary tract symptoms; G47.00 Insomnia, unspecified; I69.322 Dysarthria following cerebral infarction; I69.392 Facial weakness following cerebral infarction; I25.10 Atherosclerotic heart disease of native coronary artery without angina pectoris; E78.5 Hyperlipidemia, unspecified; Z87.891 Personal history of nicotine dependence; Z66 Do not resuscitate; Z79.82 Long term (current) use of aspirin; Z79.899 Other long term (current) drug therapy; Z95.5 Presence of coronary angioplasty implant and graft; Z91.14 Patient's other noncompliance with medication regimen
CPT/HCPCS: 70551; 80048; 80053; 80061; 80164; 85025; 93306; 97112; 97116 ×2; 97139 ×2; 99285; G0378 ×4; 36415; Q0162

== ENCOUNTER 2019-08-05 09:06 | Observation (INO) | payer MEDICAID, MEDICARE, OTHER ==
[~2019-08-05 09:06] MED LIST: Iopamidol-370 76% 500 ML 1 ML ONE
--- NOTE | 2019-08-05 09:41 | CT ---
CT Head without IV contrast COMPARISON: 08/05/2016 HISTORY: Level 1 stroke alert. Right-sided weakness. History of stroke 2 months ago. TECHNIQUE: Axial CT imaging at 5 mm intervals from vertex through skull base without contrast FINDINGS: There is no evidence of an acute infarction, hemorrhage, mass effect, or midline shift. There is decr eased attenuation seen in the periventricular white matter which is nonspecific but likely attributable to chronic small vessel ischemic changes. Again noted are small lacunar infarctions in e ach thalamus and each basal ganglia. No acute cortical infarction is identified. Small low-density areas are again seen in each cerebellar hemisphere and in the right aspect of the mira also likely du e to small remote infarctions. There is mild cerebral volume loss. The ventricular system is normal in size, shape, and position for the degree of sulcal atrophy. Minimal left mastoid effusions are seen on the left which were seen on the MRI exam on 03/21/2019. Re mainder of the visualized paranasal sinuses are clear. Osseous structures appear intact. IMPRESSION: 1. No acute intracranial abnormality demonstrated. 2. Stable chronic changes as described above. 3. Above findings discussed with Dr. Luna in the emergency department on 08/05/2019 at 0937 hours.
[2019-08-05 10:11] LABS: #Basophils 0.1 thou/uL (0.0-0.2); #Eosinphils 0.9 thou/uL (0.0-0.7); #Lymphocytes 1.7 thou/uL (1.20-3.40); #Monocytes 0.8 thou/uL (0.11-0.59); #Neutrophils 3.4 thou/uL (1.40-6.50); %Eosinophils 13.3 % (0.0-10.0); %Lymphocytes 24.5 % (21.0-51.0); %Monocytes 11.5 % (0.0-10.0); %Neutrophils 49.7 % (42.0-75.0); Hemoglobin 12.4 g/dL (14.0-18.0); Mean Corpuscular HGB CONC 33.6 g/dL (32.0-36.0); Mean Corpuscular Hemoglobin 31.4 pg (27.0-31.0); Mean Corpuscular Volume 93.6 fL (78.0-98.0); Mean Platelet Volume 8.8 fL (7.4-10.4); Platelet Count 137 thou/uL (130-400); RBC Distribution Width 13.1 % (11.5-14.5); Red Blood Cell (RBC) Count 3.96 mill/uL (4.70-6.10); White Blood Cell (WBC) Count 6.8 thou/uL (4.8-10.8)
--- NOTE | 2019-08-05 10:25 | RAD ---
PORTABLE CHEST 1 VIEW: Date: 08/05/2019 Time: 1011 hours HISTORY: Weakness. COMPARISON: 01/11/2016. FINDINGS: The heart size is normal. No focal areas of consolidation, pneumothoraces, or pleural effusions are s een. IMPRESSION: No acute process. POS: MAXIME
[2019-08-05 10:33] LABS: ALT (SGPT) 17 U/L (8-55); AST (SGOT) 23 U/L (5-34); Albumin 3.7 g/dL (3.5-5.0); Alkaline Phosphatase 63 U/L (40-110); Anion Gap 14 mmol/L (10-20); BUN (Urea Nitrogen) 32 mg/dL (8.4-25.7); Bilirubin, Total 0.4 mg/dL (0.2-1.2); CK (CPK) 69 U/L (30-200); Calc. Creatinine Clearance 0 mL/min (70-130); Calcium 8.9 mg/dL (7.8-10.44); Carbon Dioxide 22 mmol/L (22-29); Chloride 107 mmol/L (98-107); Estimated GFR-MDRD 32; Globulin 2.6 g/dL (2.4-3.5); Glucose 118 mg/dL (70-105); INR-International Normal Ratio 1.1; PTT 29.9 SEC (22.9-36.1); Potassium 4.5 mmol/L (3.5-5.1); Protein, Total 6.3 g/dL (6.0-8.3); Prothrombin Time 13.9 SEC (12.0-14.7); Sodium 138 mmol/L (136-145)
[2019-08-05] MEDS ORDERED: Labetalol HCl 100 MG/20 ML VIAL SLOW IVP PRN (12:15)
[2019-08-05] MEDS ORDERED: hydrALAZINE 20 MG/ML VIAL SLOW IVP PRN (12:15)
[2019-08-05] MEDS ORDERED: Aspirin Chewable 81 MG TAB ONE (12:28)
[2019-08-05 14:24] VITALS: BMI 33.1
--- NOTE | 2019-08-05 15:29 | MRI ---
BRAIN MRI WITHOUT CONTRAST: Comparison: 03-21-19 History: New onset right sided weakness. Evaluate for CVA. FINDINGS: Calvarium has a normal T1 marrow signal intensity. Midline brain parenchymal structures do not demons trate any acute abnormality. No hemorrhage on the axial gradient echo sequence. No hypointensity on the axial gradient echo sequence suggesting hemosiderin deposition from remote la cunar hemorrhagic infarcts. Brain volume is age appropriate. Cortical monson white matter differentiati on is preserved. No hydrocephalus. Stable T2 and FLAIR white matter hyperintensities due to chronic small vessel ischemic changes. Cavit y lacunar infarcts identified in bilateral brito radiata. Central arterial flow voids are maintained. Absent restricted diffusion. Adequate aeration of the sinuses. Partial opacification of the bilateral mastoid air cells, left grea ter than right. IMPRESSION: Absence of restricted diffusion. No acute infarct. POS: PPP
--- NOTE | 2019-08-05 19:55 | HP ---
CHIEF COMPLAINT: "I think I have a stroke." HISTORY OF PRESENT ILLNESS: The patient is a 59-year-old male with past medical history of multiple CVAs with residual right-sided weakness, who presented to the hospital with worsening right-sided weakness and numbness that he describes as what he usually feels when he have a stroke. His symptoms started yesterday at 8:30 p.m. and persisted until now. CT scan of the head in the ER along with CTA of the head and neck did not reveal any acute CVA or vascular occlusions. REVIEW OF SYSTEMS: Negative except as noted in HPI. PAST MEDICAL HISTORY: Hyperlipidemia, hypertension, coronary artery disease, cerebrovascular accident and transient ischemic attack. PAST SURGICAL HISTORY: Cholecystectomy, knee surgery, and coronary angioplasty. SOCIAL HISTORY: Denies alcohol use. He is a former tobacco user. Denies illicit drug use. ALLERGIES: NO KNOWN ALLERGIES. PHYSICAL EXAMINATION: VITAL SIGNS: The patient's vital signs are stable. HEENT: Head is normocephalic and atraumatic. Extraocular muscles are intact. Pupils equal, reactive to light. NECK: Supple. CHEST: Clear to auscultation bilaterally. CARDIOVASCULAR: Revealed RRR, normal S1, S2. No murmurs, rubs, or gallops. ABDOMEN: Soft, nontender, and nondistended. NEUROLOGIC: Revealed 3/5 weakness on the right side with intact 2 through 12 cranial nerves. ASSESSMENT: 1. Cerebrovascular accident versus transient ischemic attack. 2. Hypertension. 3. Hyperlipidemia. PLAN: 1. Admit to neuro telemetry. 2. Neuro checks q.4 hours. 3. Start high-dose aspirin and atorvastatin. 4. We will allow permissive hypertension with treating blood pressure greater than 220 systolic or 120 diastolic with IV hydralazine or labetalol. 5. Check MRI of the brain. 6. Check echocardiogram. 7. PT and OT evaluation. 8. Consult Case Management for placement if his MRI study is positive. Job ID: [id number]
[2019-08-05] MEDS ORDERED: Atorvastatin Calcium 40 MG TAB PO SCH (21:00)
[2019-08-06 05:51] LABS: Cardiac Risk 2.9 (Less than 4.5)
[2019-08-06] MEDS ORDERED: Aspirin 325 mg Enteric Coated Tablet PO SCH (09:00)
[2019-08-06] MEDS ORDERED: Enoxaparin Sodium 30 MG/0.3 ML SYRINGE SC SCH (09:00)
[2019-08-06 15:40] VITALS: BP 159/101; TEMP 98
--- NOTE | 2019-08-07 03:29 | DIS ---
DATE OF ADMISSION: 08/05/2019 DATE OF DISCHARGE: 08/06/2019 DISCHARGE DIAGNOSES: 1. Transient ischemic attack. 2. History of cerebrovascular accident. 3. Hypertension. 4. Hyperlipidemia. DISCHARGE MEDICATIONS: 1. Aspirin 81 mg orally daily. 2. Amlodipine 10 mg orally daily. 3. Atorvastatin 40 mg orally nightly. 4. Buspirone 15 mg orally t.i.d. 5. Depakote 1500 mg at night. 6. Docusate 100 mg orally twice daily. 7. Dutasteride 0.5 mg orally daily. 8. Fluoxetine 20 mg orally twice daily. 9. Loratadine 10 mg orally daily. 10. Melatonin 20 mg orally nightly. 11. Singulair 10 mg orally daily. 12. Pregabalin 75 mg orally t.i.d. 13. Risperidone 1 mg orally nightly. 14. Tamsulosin 0.4 mg orally daily. 15. Trazodone 50 mg orally nightly. HISTORY OF PRESENT ILLNESS AND HOSPITAL COURSE: The patient is a 59-year-old male with past medical history of multiple CVAs with residual right-sided weakness, who presented to the hospital with worsening weakness on the right side concerning for CVA. CT scan of the head and CT angiogram were obtained in the ER and they were both unrevealing for CVA or vascular occlusions. The patient was placed in observation, and MRI of the brain was obtained, which did not show any diffusion abnormality suggestive of stroke. The patient's symptoms resolved completely, back to baseline within 24 hours. Job ID: [id number]
--- NOTE | 2019-08-07 12:59 | CT ---
EXAM: CT angiogram head and neck with IV contrast and 3-D reconstruction PROVIDED CLINICAL HISTORY: Level 1 stroke alert. Patient has right-sided weakness. COMPARISON: Noncontrast CT head on 08/05/2019 FINDINGS: There is a normal arrangement of the great vessels at the aortic arch. Mild atherosclerotic vascular calcifications are seen. Right subclavian artery is incompletely visualized due to dense contrast in adjacent veins. The left subclavian artery is patent. The bilateral common carotid arteries are pa tent. There is mild calcified atherosclerotic plaque at the right carotid artery bifurcation, but the right internal and external carotid arteries are patent. There is greater degree of atherosclerot ic calcified plaque involving the proximal left internal carotid artery with mild narrowing involving the proximal left internal carotid artery, but the degree of narrowing does appear less ally n 50%. The bilateral vertebral arteries are codominant and patent. Basilar artery is patent. The bilateral posterior cerebral arteries are patent. The bilateral middle cerebral arteries are patent without focal stenosis or branch occlusion. There is mild atherosclerotic plaque seen involving the right anterior cerebral artery with areas of narrowing approaching 50%. No aneurysm is seen within the limitations of the technique of this examination. IMPRESSION: 1. Mild atherosclerotic plaque in the proximal left internal carotid artery, but the degree of narrow ing involving each internal carotid artery is less than 50%. 2. Patent bilateral vertebral arteries. 3. Atherosclerotic narrowing involving the proximal right anterior cerebral artery. 4. No aneurysm is seen within the limitations of the technique of this exam. 5. Above findings were discussed with Mac, nurse in charge of the patient's care in the emergency department on 08/05/2019 at 1033 hours. Transcribed Date/Time: 08/07/2019 12:59 PM
== END 2019-08-06 16:27 | disposition home or self-care (01) ==
LOC: ERS 09:06 → 2SE 13:27
PROVIDERS: ADMIT Internal Medicine; ATTEND Internal Medicine
DX: G45.9 Transient cerebral ischemic attack, unspecified (principal); E78.5 Hyperlipidemia, unspecified; I10 Essential (primary) hypertension; I25.10 Atherosclerotic heart disease of native coronary artery without angina pectoris; I69.351 Hemiplegia and hemiparesis following cerebral infarction affecting right dominant side; I67.2 Cerebral atherosclerosis; Z79.82 Long term (current) use of aspirin; Z79.899 Other long term (current) drug therapy
CPT/HCPCS: 70450; 70496; 70498; 70551; 71045; 80053; 80061; 82550; 82962; 84484; 85025; 85610; 85730; 93005; 93306; 96372; 97139 ×3; 99285; G0378 ×3; 36415; 36416; J1650; Q9967

== ENCOUNTER 2019-10-07 11:46 | Observation (INO) | payer MEDICARE, MEDICAID, OTHER ==
[2019-10-07 12:27] LABS: #Basophils 0.1 thou/uL (0.0-0.2); #Eosinphils 2.1 thou/uL (0.0-0.7); #Lymphocytes 2.7 thou/uL (1.20-3.40); #Monocytes 0.9 thou/uL (0.11-0.59); #Neutrophils 3.4 thou/uL (1.40-6.50); %Basophils 1.2 % (0.0-1.0); %Eosinophils 22.4 % (0.0-10.0); %Lymphocytes 29.5 % (21.0-51.0); %Neutrophils 36.9 % (42.0-75.0); Hemoglobin 12.8 g/dL (14.0-18.0); Mean Corpuscular HGB CONC 33.6 g/dL (32.0-36.0); Mean Corpuscular Hemoglobin 31.2 pg (27.0-31.0); Mean Corpuscular Volume 92.8 fL (78.0-98.0); Mean Platelet Volume 8.6 fL (7.4-10.4); Platelet Count 152 thou/uL (130-400); RBC Distribution Width 13.3 % (11.5-14.5); White Blood Cell (WBC) Count 9.1 thou/uL (4.8-10.8)
[2019-10-07 12:50] LABS: ALT (SGPT) 17 U/L (8-55); AST (SGOT) 22 U/L (5-34); Alkaline Phosphatase 65 U/L (40-110); Anion Gap 12 mmol/L (10-20); BUN (Urea Nitrogen) 25 mg/dL (8.4-25.7); Bilirubin, Total 0.3 mg/dL (0.2-1.2); Calc. Creatinine Clearance 0 mL/min (70-130); Calcium 9.1 mg/dL (7.8-10.44); Carbon Dioxide 24 mmol/L (22-29); Chloride 104 mmol/L (98-107); Estimated GFR-MDRD 38; Globulin 3.3 g/dL (2.4-3.5); Glucose 75 mg/dL (70-105); Potassium 4.4 mmol/L (3.5-5.1); Protein, Total 7.3 g/dL (6.0-8.3); Sodium 136 mmol/L (136-145)
[2019-10-07] MEDS ORDERED: Ketorolac Tromethamine 30 MG/ML VIAL ONE (12:54)
[2019-10-07] MEDS ORDERED: predniSONE 20 MG TAB ONE (12:54)
--- NOTE | 2019-10-07 12:57 | RAD ---
XR Chest 1 View Portable HISTORY: Chest pain COMPARISON: 08/05/2019 FINDINGS: The heart size is normal. The lungs are well expanded without focal areas of consolidation, pneumothorax or pleural effusions. IMPRESSION: No radiographic evidence of acute cardiopulmonary process.
[2019-10-07 13:10] LABS: CKMB 3.9 ng/mL (0-6.6)
--- NOTE | 2019-10-07 13:56 | PDOC.FPRHP ---
- History of Present Illness Chief Complaint: chest pain, SOB History of Present Illness: Pt is a 59yo M with a PMH of HTN, HLD, hx of CVA and TIA, CAD, COPD, depression , bipolar disorder, diastolic HF, and CKD III who presents with chest pain and SOB [id number]. The chest pain is in his LUQ/ left chest and does not radiate. Denies an increase in CP with exertion, or radiation of the pain. The pain is worse with palpation and when he coughs. He endorses a productive cough associated with sputum production that has increased in amount and has changed to white in color over this last month. He also endorses dysphagia, and chokes when he eats solid foods. He denies fever, chills, sick contacts, abdominal pain, changes in bowel habits , GERD, N/V ED Course: Patient received 1L NS bolus, 60mg of PO prednisone, and 30mg IV toradol. Trop .031. CXR neg. EKG neg for ST elevations, normal sinus rhythm. - Allergies/Adverse Reactions Allergies Allergy/AdvReac Type Severity Reaction Status Date / Time No Known Drug Allergies Allergy Verified 08/15/19 19:35 - Home Medications Medication Instructions Recorded Confirmed Type FLUoxetine HCl 20 mg PO BID 05/05/17 10/07/19 History Aspirin 81 mg PO DAILY 03/21/19 10/07/19 History Divalproex Sodium [Depakote] 1,500 mg PO HS 03/21/19 10/07/19 History Docusate Sodium 100 mg PO BID 03/21/19 10/07/19 History Dutasteride 0.5 mg PO 1700 03/21/19 10/07/19 History Melatonin 20 mg PO HS 03/21/19 10/07/19 History Montelukast Sodium [Singulair] 10 mg PO 1700 03/21/19 10/07/19 History Pregabalin 75 mg PO TID 03/21/19 10/07/19 History busPIRone HCl [Buspirone HCl] 15 mg PO TID 03/21/19 10/07/19 History risperiDONE [RisperDAL] 1 mg PO HS 03/21/19 10/07/19 History Amlodipine [Norvasc] 10 mg PO DAILY 30 Days #30 tab 03/23/19 10/07/19 Rx Atorvastatin Calcium 40 mg PO HS 08/05/19 10/07/19 History Loratadine [Claritin] 10 mg PO DAILY 08/05/19 10/07/19 History Travoprost [Travatan Z] 1 drop EA EYE DAILY 10/07/19 10/07/19 History traZODone HCl [Trazodone HCl] 100 mg PO HS 10/07/19 10/07/19 History - History PMHx: HTN, HLD, hx of CVA and TIA, COPD, depression, bipolar disorder, CKD III, diastolic HF, CAD PSHx: cholecystectomy FHx: mom- heart attack Social: smokes 3-4 ppd, used to drink a case of beer a day but stopped 20 years ago, smoked crack cocaine but stopped 20 years ago - Review of Systems General: denies: fever/chills Eyes: denies: vision changes ENT: denies: nasal congestion Respiratory: reports: cough, shortness of breath, exercise intolerance Cardiovascular: reports: chest pain. denies: palpitation, edema Gastrointestinal: denies: nausea, vomiting, diarrhea, constipation, abdominal pain Genitourinary: denies: dysuria Skin: denies: rashes Musculoskeletal: denies: swelling Neurological: denies: weakness Psychological: reports: anxiety, depression - Vital signs BP: 162/100 Pulse: 81, Resp: 15 Temp: 98 (Oral), O2 sat: 97% on Room Air - Physical Exam Constitutional: awake, alert and oriented, well developed HEENT: normocephalic and atraumatic, EOMI, conjunctiva clear Neck: supple, trachea midline Chest: no lesions -Chest: tender to palpation of the LUQ/left chest that reproduces the chest pain he is experiencing Heart: normal S1/S2, no murmurs/rubs/gallops, pulses present, no edema -Lungs: patient has end expiratory wheezing bilaterally and sounds very tight Abdomen: soft, non-tender -Abdomen: umbilical hernia present Musculoskeletal: normal structure, normal tone, ROM grossly normal Neurological: no focal deficit Skin: no rash/lesions, good turgor Heme/Lymphatic: no unusual bruising or bleeding Psychiatric: normal mood and affect, good judgment and insight, intact recent and remote memory FMR H&P: Results - Labs Result Diagrams: 10/07/19 12:13 10/07/19 12:13 Lab results: WBC 9.1 thou/uL (4.8-10.8) 10/07/19 12:13 Hgb 12.8 g/dL (14.0-18.0) L 10/07/19 12:13 Hct 38.0 % (42.0-52.0) L 10/07/19 12:13 MCV 92.8 fL (78.0-98.0) 10/07/19 12:13 Plt Count 152 thou/uL (130-400) 10/07/19 12:13 Neutrophils % 36.9 % (42.0-75.0) L 10/07/19 12:13 Sodium 136 mmol/L (136-145) 10/07/19 12:13 Potassium 4.4 mmol/L (3.5-5.1) 10/07/19 12:13 Chloride 104 mmol/L (98-107) 10/07/19 12:13 Carbon Dioxide 24 mmol/L (22-29) 10/07/19 12:13 BUN 25 mg/dL (8.4-25.7) 10/07/19 12:13 Creatinine 1.83 mg/dL (0.7-1.3) H 10/07/19 12:13 Glucose 75 mg/dL (70-105) 10/07/19 12:13 Calcium 9.1 mg/dL (7.8-10.44) 10/07/19 12:13 Total Bilirubin 0.3 mg/dL (0.2-1.2) 10/07/19 12:13 AST 22 U/L (5-34) 10/07/19 12:13 ALT 17 U/L (8-55) 10/07/19 12:13 Alkaline Phosphatase 65 U/L (40-110) 10/07/19 12:13 CK-MB (CK-2) 3.9 ng/mL (0-6.6) 10/07/19 12:13 Serum Total Protein 7.3 g/dL (6.0-8.3) 10/07/19 12:13 Albumin 4.0 g/dL (3.5-5.0) 10/07/19 12:13 - EKG Interpretation EKG: reviewed by me in the ED. No ST elevations or acute changes. Normal sinus rhythm. FMR H&P: A/P - Plan 1. COPD Exacerbation without hypoxia patient has increased sputum production with change of color and complaints of SOB with a PMH of COPD -satting well on RA -COVID neg -WBCs WNL, abx not indicated at this time -prednisone 40mg daily -Duo Nebs q6 -Procal pending to r/o bacterial infection 2. Elevated Troponin -.031 in the ED -continue to trend -Mg, phos, A1C, lipid panel, TSH pending -NPO @ midnight for stress test tomorrow 3. Chest pain 2/2 costochondritis 1mo history of CP worse with cough, palpation reproduces the CP but given risk factors and history will admit to rule out ACS -Tylenol PRN for pain 4. HTN patient endorses increased BPs with SBPs in the 160s in the last month likely 2/ 2 to pulmonary process -continue home meds -hydralazine 10mg PRN for SBP>180 5. Diastolic HF with preserved EF -patient's last echo in August 2019 -EF 55-60% -strict I/Os 6. HLD -continue home meds 7. History of CVA -continue home meds 8. History of TIA -continue home meds 9.Depression -continue home meds 10. Bipolar disorder -continue home meds 11. CKD III -Cr 1.84, seems to be around patient's baseline -CrCl is 61mL/min 12. CAD - continue home meds Disposition/LOS: Dispo: admit to TELE, Obs DVT Prophylaxis: Lovenox 40 FULL CODE FMR H&P: Upper Level - Plan Date/Time: 10/07/19 1354 Anil Smith PGY3, have evaluated this patient and agree with findings/plan as outlined by commercial intern resident. Pertinent changes/additions are listed here. SUBJECTIVE: 59yo M with pmh of CVA x5, HLD, CAD and HTN presents for cough and chest pain. Pain is L sided and worsened by meals. He has hx of CAD s/p 1 stent. Pt has extensive smoking hx and although he denies COPD he does have documented hx of this. OBJECTIVE: On exam pt is hypertensive but otherwise has normal vitals. Cardiopulmonary exam normal. CP not reproducible. Pertinent labs/imaging include normal EKG and CXR. and an elevated creatinine. Initial trop indeterminate range. ASSESMENT AND PLAN: COPD exacerbation A- pt is stable and satting in 90s on RA. Do not suspect bacterial infection. COVID negative in ED. s/p prednisone 60mg P- prednisone 40mg daily x4 more days -duonebs (scheduled q6H, prn q2H) -recommend outpt spirometry to confirm diagnosis -hold ABX at this point -will get procal to r/o bacterial infection Atypical chest pain, likely 2/2 MSK vs. pleuritis A- considering cough x1 month i suspect CP is 2/2 pleural etiology or chostochondritis. however considering this pts risk factors we will admit for observation and r/o of ACS. EKG and CXR are unconcerning. Trop .031 placing in indeterminate range. Pt is covid negative. Last stress 2015 wnl P- admit to tele, obs -trend trops -plan for stress test in AM -Mg, phos, TSH -risk stratify with FLP Dysphagia A- seems to be chronic P- speech therapy consult HFpEF A- echo in August 2019 shows EF 55-60% with diastolic dysfunction. does not appear to be in exacerbation P- strict I/Os -will manage BP CKD A- Cr at baseline P- will avoid nephrotoxic meds Abdominal hernia, chronic A- no evidence of incarceration P- will monitor hx of multisubstance abuse -MD aware [place] deformity of R hand -MD aware HTN, BPH, HLD, seasonal allergies, bipolar 2, psychotic d/o (unspecified) -stable, continue home medications all other chronic problems per commercial intern note CODE: FULL dispo: tele, obs. expect stay less than 2 midnights IVF: KVO Diet: HH, NPO at midnight PCP: Dr. Craig
[2019-10-07] MEDS ORDERED: Ondansetron ODT 4 MG TAB PO PRN (15:46)
[2019-10-07] MEDS ORDERED: Acetaminophen 325 MG TAB PO PRN (15:46)
[2019-10-07] MEDS ORDERED: Nicotine 21 MG PATCH TD SCH (16:00)
[2019-10-07] MEDS ORDERED: hydrALAZINE 20 MG/ML VIAL SLOW IVP PRN ×2 (16:06→16:09)
[2019-10-07 16:31] VITALS: BMI 34.1
--- NOTE | 2019-10-07 16:32 | PDOC.EVN ---
Addendum - Attending - Attending Attestation Date/Time: 10/07/19 1963 I personally evaluated the patient and discussed the management with Dr. Delgado/ Erin. I agree with the History, Examination, Assessment and Plan documented in the H& P with any addition or exceptions noted below. Patient with history of excessive tobacco use and COPD here with 1 month history of cough, productive sputum, and L sided chest pain worse with coughing. His exam is pertinent for diffuse wheezes. His labs show indeterminate troponin, normal CXR. Patient will be admitted for COPD exacerbation without hypoxia. Steroids, neb treatments, and abx if procalcitonin guides that decision. R/O ACS though that is less likely based on time course and symptomatology. Continue home meds for chronic conditions. Consider speech consult/MBS for his dysphagia and upper airway sounds.
[2019-10-07 16:34] LABS: Hemoglobin A1c 5.3 % (4.0-6.0)
[2019-10-07 16:52] LABS: Troponin I 0.016 ng/mL (< 0.028)
[2019-10-07] MEDS ORDERED: Dutasteride 0.5 MG CAP PO SCH (17:00)
[2019-10-07] MEDS ORDERED: Montelukast Sodium 10 mg Tablet PO SCH (17:00)
[2019-10-07 17:18] LABS: Magnesium 2.1 mg/dL (1.6-2.6); Phosphorus 3.5 mg/dL (2.3-4.7)
[2019-10-07] MEDS ORDERED: risperiDONE 1 MG TAB PO SCH (21:00)
[2019-10-07] MEDS ORDERED: Divalproex Sodium DR 500 MG TAB PO SCH (21:00)
[2019-10-07] MEDS ORDERED: traZODone HCl 50 MG TAB PO SCH (21:00)
[2019-10-07] MEDS ORDERED: Atorvastatin Calcium 40 MG TAB PO SCH (21:00)
[2019-10-07] MEDS: Pregabalin 75 MG CAP PO SCH (21:26)
[2019-10-07] MEDS: guaiFENesin ER 600 MG TAB PO SCH (21:27)
[2019-10-07] MEDS: FLUoxetine HCl 20 MG CAP PO SCH (21:27)
[2019-10-07] MEDS: Melatonin 3 MG TAB PO SCH ×2 (21:27→23:36)
[2019-10-07] MEDS: Docusate 100 MG CAP PO SCH (21:28)
[2019-10-07] MEDS: busPIRone HCl 10 MG TAB PO SCH (21:28)
[2019-10-07] MEDS ORDERED: Guaifenesin DM 100-10/5 ML UDCUP PO PRN (23:54)
[2019-10-08 04:35] LABS: ALT (SGPT) 14 U/L (8-55); AST (SGOT) 19 U/L (5-34); Albumin 3.7 g/dL (3.5-5.0); Alkaline Phosphatase 63 U/L (40-110); Anion Gap 14 mmol/L (10-20); BUN (Urea Nitrogen) 26 mg/dL (8.4-25.7); Bilirubin, Total 0.3 mg/dL (0.2-1.2); Calc. Creatinine Clearance 61 mL/min (70-130); Calcium 9.3 mg/dL (7.8-10.44); Carbon Dioxide 23 mmol/L (22-29); Cardiac Risk 3.1 (Less than 4.5); Chloride 106 mmol/L (98-107); Cholesterol 101 mg/dl (< 200 Desired); Estimated GFR-MDRD 37; Globulin 3.2 g/dL (2.4-3.5); Glucose 100 mg/dL (70-105); HDL Cholesterol 33 mg/dL (>60 Neg Risk); LDL Cholesterol, Calculated 57 mg/dL; Protein, Total 6.9 g/dL (6.0-8.3); Sodium 138 mmol/L (136-145); Triglycerides 57 mg/dL (Less than 150)
[2019-10-08 05:41] LABS: Band 8 % (5-11); Hemoglobin 12.2 g/dL (14.0-18.0); Lymphocytes 19 % (21-51); MDiff Complete? YES; Mean Corpuscular HGB CONC 33.2 g/dL (32.0-36.0); Mean Corpuscular Hemoglobin 30.8 pg (27.0-31.0); Mean Corpuscular Volume 92.8 fL (78.0-98.0); Mean Platelet Volume 8.7 fL (7.4-10.4); Monocytes 9 % (0-10); Neutrophil 64 % (42-75); Platelet Count 130 thou/uL (130-400); RBC Distribution Width 13.4 % (11.5-14.5); Red Blood Cell (RBC) Count 3.96 mill/uL (4.70-6.10); White Blood Cell (WBC) Count 9.8 thou/uL (4.8-10.8)
--- NOTE | 2019-10-08 05:49 | PDOC.FM ---
- Subjective Subjective: Pt is a 59yo M with a PMH of HTN, HLD, hx of CVA and TIA, CAD, COPD, depression , bipolar disorder, diastolic HF, and CKD III who presented with chest pain and SOB in the setting of COPD exacerbation without hypoxia. Overnight, patient complained of cough and received Robitussin, which he said helped. Today, patient is resting comfortably in his chair. He states he feels better and only has chest pain when he coughs. Denies CP at rest. His SOB has improved and he is satting well on RA. However, he said his cough is still bothersome and it is productive of white sputum. He denies fever, chills, abdominal pain, edema, changes in bowel habits. - Objective MAR Reviewed: Yes Vital Signs & Weight: Vital Signs (12 hours) Temp Pulse Resp BP BP Pulse Ox 10/08/19 03:18 97.6 F 90 20 163/89 H 96 10/08/19 00:12 100 20 96 10/07/19 23:42 97.7 F 92 18 160/103 H 95 10/07/19 21:00 98.3 F 104 H 18 143/108 H 95 10/07/19 18:47 101 H 20 96 Weight Weight 101.741 kg I&O: 10/06/19 10/07/19 10/08/19 06:59 06:59 06:59 Intake Total 240 Balance 240 Result Diagrams: 10/08/19 04:11 10/08/19 04:11 Additional Labs: cholesterol 101 HDL 33 LDL 57 A1C 5.3% Procal neg Trop neg x3 Phys Exam - Physical Examination Constitutional: NAD HEENT: moist MMs, TM's clear Neck: supple, full ROM Respiratory: wheezing present (diffuse end expiratory wheezes bilaterally) Cardiovascular: RRR, no significant murmur Gastrointestinal: soft, non-tender, no distention Neurological: moves all 4 limbs Psychiatric: normal affect, A&O x 3 Skin: no rash, normal turgor Dx/Plan - Plan Plan: 1. COPD Exacerbation without hypoxia patient has increased sputum production with change of color and complaints of SOB with a PMH of COPD -satting well on RA -COVID neg -WBCs WNL, procal neg, abx not indicated at this time -prednisone 40mg daily -Duo Nebs q6h -patient will need to f/u outpatient and have formal spirometry testing 2. Elevated Troponin -Neg x3 -NPO for stress test today (10/07) -ASCVD 10 year risk 16.2%, will discuss increasing Atorvastatin to 80mg and smoking cessation 3. Chest pain 2/2 costochondritis 1mo history of CP worse with cough, palpation reproduces the CP but given risk factors and history will admit to rule out ACS -Tylenol PRN for pain 4. HTN patient endorses increased BPs with SBPs in the 160s in the last month likely 2/ 2 to pulmonary process -continue home meds -hydralazine 10mg PRN for SBP>180 5. Diastolic HF with preserved EF -patient's last echo in August 2019 -EF 55-60% -strict I/Os 6. HLD -continue home meds 7. History of CVA -continue home meds 8. History of TIA -continue home meds 9.Depression -continue home meds 10. Bipolar disorder -continue home meds 11. CKD III -Cr 1.84, seems to be around patient's baseline -CrCl is 61mL/min 12. CAD - continue home meds CODE: FULL dispo: tele, obs. expect stay less than 2 midnights IVF: KVO Diet: HH, NPO at midnight PCP: Dr. Craig Addendum - Attending - Attending Attestation Date/Time: 10/08/19 [id number] I personally evaluated the patient and discussed the management with Dr. Delgado. I agree with the History, Examination, Assessment and Plan documented above with any addition or exceptions noted below. Patient feeling improved today. He is not requiring O2. Going for stress testing today. Hopeful that BUSINESS OBJECTS DEVELOPER can evaluate him today but if not can likely be deferred to outpatient setting. Continues nebs and steroids. If stress normal and doing well later today, possible dc home.
[2019-10-08] MEDS: Docusate 100 MG CAP PO SCH (08:45)
[2019-10-08] MEDS: Pregabalin 75 MG CAP PO SCH (08:45)
[2019-10-08] MEDS: busPIRone HCl 10 MG TAB PO SCH (08:46)
[2019-10-08] MEDS: guaiFENesin ER 600 MG TAB PO SCH (08:47)
[2019-10-08] MEDS: FLUoxetine HCl 20 MG CAP PO SCH (08:53)
[2019-10-08] MEDS ORDERED: Amlodipine 10 MG TAB PO SCH (09:00)
[2019-10-08] MEDS ORDERED: predniSONE 20 MG TAB PO SCH (09:00)
[2019-10-08] MEDS ORDERED: Loratadine 10 MG TAB PO SCH (09:00)
[2019-10-08] MEDS ORDERED: Latanoprost 0.005% Ophth Soln 2.5 ml Bottle EA EYE SCH (09:00)
[2019-10-08] MEDS ORDERED: Enoxaparin Sodium 40 MG/0.4 ML SYRINGE SC SCH (09:00)
[2019-10-08] MEDS ORDERED: Aspirin Chewable 81 MG TAB PO SCH (09:00)
[2019-10-08] MEDS ORDERED: Regadenoson 0.4 MG/5 ML SYRINGE ONE (10:07)
[2019-10-08 11:49] VITALS: BP 154/90; TEMP 98.5
--- NOTE | 2019-10-08 12:02 | NM ---
EXAM: CARDIAC SPECT HISTORY: Chest pain, coronary artery disease, COPD, stent, hypertension, dyslipidemia, smoker TECHNIQUE: A myocardial perfusion scan was performed using the single isotope 1 day protocol with annabelle hnetium 99m sestamibi. [10 mCi] was injected intravenously for the rest exam followed by 30 mCi for the stress study. Pharmacologic stress with Lexiscan was monitored and interpreted by the nurse practitioner. FINDINGS: Homogeneous tracer distribution is seen in the myocardial segments on stress and rest image s without fixed or reversible defects. Gated SPECT LVEF: 72% Wall motion exam: Normal IMPRESSION: Normal myocardial perfusion scan
[2019-10-08] MEDS ORDERED: Guaifenesin DM 100-10/5 ML UDCUP PO PRN (12:25)
--- NOTE | 2019-10-08 21:08 | DIS ---
DATE OF ADMISSION: 10/07/2019 DATE OF DISCHARGE: 10/08/2019 RESIDENT: Amy Delgado MD ADMITTING ATTENDING: Mendez Frank MD DISCHARGE ATTENDING: Mendez Frank MD CONSULTS: None. PROCEDURES: stress test. PRIMARY DIAGNOSES: Chronic obstructive pulmonary disease exacerbation without hypoxia. SECONDARY DIAGNOSES: 1. Elevated troponin. 2. Chest pain secondary to costochondritis. 3. Hypertension. 4. Diastolic heart failure with preserved ejection fraction. 5. Hyperlipidemia. 6. History of CVAs. 7. History of transient ischemic attack. 8. Depression. 9. Bipolar disorder. 10. Chronic kidney disease stage 3. 11. Coronary artery disease. DISCHARGE MEDICATIONS: Prednisone 40 mg once daily for 3 days, Albuterol inhaler 18gm inhalation every 4 hours, Spiriva 4gm 2 inhalations daily, Fluoxetine 20mg BID, Depakote 1500mg QHS, Melatonin 20mg QHS, Dutarteride 0.5mg , Singulair 10mg daily, Risperdal 1mg QHS, Pregabalin 75mg TID, Aspirin 81mg daily, Buspirone 15mg TID, Amlodipine 10mg, Atorvastatin 40mg QHS, Claritin 10mg daily, Travatan Z 1 drop each each daily, Trazodone 100mg QHS DISCONTINUED MEDICATIONS: Docusate Sodium 100mg BID HOSPITAL COURSE/HPI: The patient presented to the ED with chest pain and shortness of breath for 1 month that has progressively worsened. The chest pain was localized to his left upper quadrant and left chest and the pain did not radiate. He did not have an increase in chest pain with exertion. The pain was worse with palpation and we were able to reproduce the chest pain he was experiencing. The chest pain was also worse when he coughed. He states his cough was productive with an increased sputum and has changed in color to white. He also has dysphagia and chokes when he eats solid foods, but he denied any fevers, chills, sick contacts, abdominal pain, or any other major symptoms. He did endorse that he has smoked 3-4 packs of cigarette a day "for a long time". He had diffuse wheezing auscultated bilaterally. His EKG and chest XR was negative in the ED. His troponin was elevated at .031 in the ED and was trended, and negative x3. The patient was saturating well on room air in the ED and throughout hospitalization. He was COVID negative. White blood cell count and procalcitonin were negative. He started on prednisone 40 daily and on DuoNebs every 6 hours scheduled and every 2 hours as needed and his respiratory symptoms improved, including a decrease in the wheezing that we auscultated on admission. Stress test was also found to be negative. We continued his home medications for his comorbid conditions during his admission. Of note, patient states in the ED that he smoked 3 to 4 packs of cigarettes a day, but upon discharge, I went up to the patient's room to talk to him about discharge instructions and he told me that he does not smoke, however, we still treated him as COPD exacerbation based on the history he gave us and his clinical picture. DISPOSITION: stable DISCHARGE INSTRUCTIONS: Location: home Diet:heart healthy diet. Activity: As tolerated. Follow up with PCP in 7 days with spirometry and a Speech consult. Job ID: [id number] MTDD
== END 2019-10-08 15:44 | disposition home or self-care (01) ==
LOC: ERS 11:46 → 2NO 13:51
PROVIDERS: ADMIT Student in an Organized Health Care Education/Training Program; ATTEND Student in an Organized Health Care Education/Training Program
DX: J44.9 Chronic obstructive pulmonary disease, unspecified (principal); M94.0 Chondrocostal junction syndrome [Tietze]; I13.0 Hypertensive heart and chronic kidney disease with heart failure and stage 1 through stage 4 chronic kidney disease, or unspecified chronic kidney disease; I50.30 Unspecified diastolic (congestive) heart failure; N18.3 Chronic kidney disease, stage 3 (moderate); I25.10 Atherosclerotic heart disease of native coronary artery without angina pectoris; E78.5 Hyperlipidemia, unspecified; F41.9 Anxiety disorder, unspecified; F31.9 Bipolar disorder, unspecified; Z79.82 Long term (current) use of aspirin; Z79.899 Other long term (current) drug therapy; Z86.73 Personal history of transient ischemic attack (TIA), and cerebral infarction without residual deficits; Z87.891 Personal history of nicotine dependence; Z95.5 Presence of coronary angioplasty implant and graft; Z20.828 Contact with and (suspected) exposure to other viral communicable diseases
CPT/HCPCS: 71045; 78452; 80053; 80061; 82553; 83036; 83735; 84100; 84145 ×2; 84484 ×2; 85025; 93005; 93017; 94640 ×3; 96372; 96374; 99285; A9500; G0378 ×3; U0002; 36415; 84443; J1650; J1885; J2785; J7512; J7620

== ENCOUNTER 2019-11-09 16:52 | Emergency (ER) | payer MEDICARE, OTHER ==
--- NOTE | 2019-11-09 17:18 | RAD ---
EXAM: CHEST ONE VIEW HISTORY: Dyspnea. Difficulty breathing for 2 weeks. COMPARISON: 10/07/2019 FINDINGS: The cardiac silhouette and pulmonary vasculature is within normal limits. Again noted is elevation ri ght hemidiaphragm with mild volume loss at the right lung base. There is increased density lateral left lung base likely related to overlying soft tissue density, and a similar finding was seen on the prior study. Lungs otherwise appear clear. Chest is overall stable compared to the prior exam. IMPRESSION: Stable chest without evidence of an acute cardiopulmonary process.
[2019-11-09] MEDS ORDERED: Albuterol 200 PUFF (6.7GM INHALER) ONE (17:20)
[2019-11-09 17:22] LABS: #Eosinphils 1.5 thou/uL (0.0-0.7); #Lymphocytes 1.5 thou/uL (1.20-3.40); #Monocytes 0.8 thou/uL (0.11-0.59); %Basophils 0.3 % (0.0-1.0); %Eosinophils 21.7 % (0.0-10.0); %Lymphocytes 22.5 % (21.0-51.0); %Neutrophils 43.5 % (42.0-75.0); Hemoglobin 11.8 g/dL (14.0-18.0); Mean Corpuscular HGB CONC 32.6 g/dL (32.0-36.0); Mean Corpuscular Hemoglobin 30.5 pg (27.0-31.0); Mean Corpuscular Volume 93.6 fL (78.0-98.0); Platelet Count 189 thou/uL (130-400); RBC Distribution Width 13.4 % (11.5-14.5); Red Blood Cell (RBC) Count 3.87 mill/uL (4.70-6.10); White Blood Cell (WBC) Count 6.8 thou/uL (4.8-10.8)
[2019-11-09 17:44] LABS: ALT (SGPT) 18 U/L (8-55); AST (SGOT) 26 U/L (5-34); Albumin 3.7 g/dL (3.5-5.0); Alkaline Phosphatase 71 U/L (40-110); Anion Gap 12 mmol/L (10-20); BUN (Urea Nitrogen) 32 mg/dL (8.4-25.7); Bilirubin, Total 0.3 mg/dL (0.2-1.2); Calc. Creatinine Clearance 0 mL/min (70-130); Carbon Dioxide 24 mmol/L (22-29); Chloride 109 mmol/L (98-107); Estimated GFR-MDRD 33; Globulin 3.2 g/dL (2.4-3.5); Glucose 96 mg/dL (70-105); Potassium 5.2 mmol/L (3.5-5.1); Protein, Total 6.9 g/dL (6.0-8.3); Sodium 140 mmol/L (136-145)
[2019-11-09] MEDS ORDERED: methylPREDNISolone Sod Succ/PF 125 MG/2 ML VIAL ONE (17:56)
[2019-11-09] MEDS ORDERED: Magnesium 2 GM/50 ML BAG (IN WATER) ONE (18:06)
[2019-11-11 13:03] LABS: SARS-CoV-2 MS2 Positive; SARS-CoV-2 N Gene Negative; SARS-CoV-2 S Gene Negative; SARS-CoV-2 by NAA Not Detected (NotDetected); SARS-CoV-2 orf1ab Negative
--- NOTE | 2019-11-14 17:02 | EKG ---
Test Reason : Blood Pressure : / mmHG Vent. Rate : 092 BPM Atrial Rate : 092 BPM P-R Int : 168 ms QRS Dur : 070 ms QT Int : 322 ms P-R-T Axes : 053 033 005 degrees QTc Int : 398 ms Normal sinus rhythm Normal ECG Confirmed by JACQUELINE MARIN ([id number]), editor map CARLOTTA PAYAN ([id number]) on 11/14/2019 5:01:48 PM Referred By: Confirmed By:JACQUELINE Lawson
== END 2019-11-09 20:22 | disposition home or self-care (01) ==
LOC: ERS 16:52
DX: J44.1 Chronic obstructive pulmonary disease with (acute) exacerbation (principal); I25.2 Old myocardial infarction; I10 Essential (primary) hypertension; E78.5 Hyperlipidemia, unspecified; K21.9 Gastro-esophageal reflux disease without esophagitis; E11.9 Type 2 diabetes mellitus without complications; F41.9 Anxiety disorder, unspecified; F31.9 Bipolar disorder, unspecified; Z87.891 Personal history of nicotine dependence; Z79.82 Long term (current) use of aspirin; Z79.899 Other long term (current) drug therapy; Z20.828 Contact with and (suspected) exposure to other viral communicable diseases
CPT/HCPCS: 71045; 80053; 83880; 84484; 85025; 93005; 94640; 94664; 96365; 96375; 99285; U0003; 87635; J2930; J3475; J7620

== ENCOUNTER 2020-02-08 17:25 | Emergency (ER) | payer MEDICARE ==
[2020-02-08 17:59] LABS: #Eosinphils 1.5 thou/uL (0.0-0.7); #Lymphocytes 2.2 thou/uL (1.20-3.40); #Monocytes 0.8 thou/uL (0.11-0.59); #Neutrophils 3.3 thou/uL (1.40-6.50); %Basophils 0.3 % (0.0-1.0); %Eosinophils 19.4 % (0.0-10.0); %Lymphocytes 28.2 % (21.0-51.0); %Neutrophils 42.1 % (42.0-75.0); Hemoglobin 12.6 g/dL (14.0-18.0); Mean Corpuscular HGB CONC 34.2 g/dL (32.0-36.0); Mean Corpuscular Hemoglobin 31.9 pg (27.0-31.0); Mean Corpuscular Volume 93.5 fL (78.0-98.0); Platelet Count 149 thou/uL (130-400); RBC Distribution Width 14.2 % (11.5-14.5); Red Blood Cell (RBC) Count 3.93 mill/uL (4.70-6.10); White Blood Cell (WBC) Count 7.8 thou/uL (4.8-10.8)
[2020-02-08] MEDS ORDERED: Albuterol 200 PUFF (6.7GM INHALER) ONE (18:07)
--- NOTE | 2020-02-08 18:12 | RAD ---
XR Chest 1 View Portable HISTORY: Dyspnea COMPARISON: 11/12/2019 FINDINGS: The heart size is normal. There is continued elevation the right hemidiaphragm. The lungs a re without focal areas of consolidation, pneumothorax or pleural effusions. IMPRESSION: No radiographic evidence of acute cardiopulmonary process.
[2020-02-08 18:16] LABS: ALT (SGPT) 21 U/L (8-55); AST (SGOT) 25 U/L (5-34); Albumin 3.6 g/dL (3.5-5.0); Alkaline Phosphatase 75 U/L (40-110); Anion Gap 15 mmol/L (10-20); BUN (Urea Nitrogen) 32 mg/dL (8.4-25.7); Bilirubin, Total 0.2 mg/dL (0.2-1.2); Calc. Creatinine Clearance 0 mL/min (70-130); Carbon Dioxide 22 mmol/L (22-29); Chloride 108 mmol/L (98-107); Estimated GFR-MDRD 32; Glucose 134 mg/dL (70-105); Protein, Total 6.6 g/dL (6.0-8.3); Sodium 140 mmol/L (136-145)
== END 2020-02-08 19:12 ==
LOC: ERS 17:25
DX: J44.9 Chronic obstructive pulmonary disease, unspecified (principal); E78.5 Hyperlipidemia, unspecified; I25.2 Old myocardial infarction; I10 Essential (primary) hypertension; E11.9 Type 2 diabetes mellitus without complications; F31.9 Bipolar disorder, unspecified; F41.9 Anxiety disorder, unspecified; Z87.891 Personal history of nicotine dependence; Z86.73 Personal history of transient ischemic attack (TIA), and cerebral infarction without residual deficits; W19.XXXA Unspecified fall, initial encounter; Z79.899 Other long term (current) drug therapy; Z79.82 Long term (current) use of aspirin
CPT/HCPCS: 36415; 71045; 80053; 85025

== ENCOUNTER 2020-04-17 18:48 | Emergency (ER) | payer MEDICARE | END 2020-04-17 20:20 | disposition home or self-care (01) | LOC: ERS 18:48 | DX: I10 Essential (primary) hypertension (principal); E78.5 Hyperlipidemia, unspecified; I25.2 Old myocardial infarction; J44.9 Chronic obstructive pulmonary disease, unspecified; E11.9 Type 2 diabetes mellitus without complications; Z87.891 Personal history of nicotine dependence; Z79.82 Long term (current) use of aspirin; Z79.51 Long term (current) use of inhaled steroids; Z79.899 Other long term (current) drug therapy | CPT/HCPCS: 99283 ==

== ENCOUNTER 2020-04-24 17:35 | Emergency (ER) | payer MEDICARE ==
--- NOTE | 2020-04-24 18:03 | RAD ---
Chest one view HISTORY: Dyspnea. COMPARISON: 02/08/2020. FINDINGS: Cardiac silhouette is unremarkable. Shallow inspiration accentuates pulmonary markings. Mediastinum is midline. Elevation of the right hemidiaphragm is similar in appearance to the prior st udy. Subtle patchy areas of groundglass infiltrate overlie each lower lobe. No evidence of pneumothorax. IMPRESSION : Mild bilateral lower lobe groundglass infiltrates. Correlate for COVID pneumonitis
[2020-04-24 18:54] LABS: #Basophils 0.1 thou/uL (0.0-0.2); #Eosinphils 1.2 thou/uL (0.0-0.7); #Lymphocytes 1.8 thou/uL (1.20-3.40); #Monocytes 0.6 thou/uL (0.11-0.59); #Neutrophils 3.4 thou/uL (1.40-6.50); %Basophils 0.9 % (0.0-1.0); %Eosinophils 17.6 % (0.0-10.0); %Monocytes 7.8 % (0.0-10.0); %Neutrophils 48.8 % (42.0-75.0); Hemoglobin 12.1 g/dL (14.0-18.0); Mean Corpuscular HGB CONC 33.8 g/dL (32.0-36.0); Mean Corpuscular Hemoglobin 31.4 pg (27.0-31.0); Mean Corpuscular Volume 92.9 fL (78.0-98.0); Mean Platelet Volume 8.7 fL (7.4-10.4); Platelet Count 169 thou/uL (130-400); Red Blood Cell (RBC) Count 3.87 mill/uL (4.70-6.10)
[2020-04-24] MEDS ORDERED: Albuterol 200 PUFF (6.7GM INHALER) ONE (19:01)
[2020-04-24] MEDS ORDERED: methylPREDNISolone Sod Succ/PF 125 MG/2 ML VIAL ONE (19:02)
[2020-04-24 19:31] LABS: ALT (SGPT) 17 U/L (8-55); AST (SGOT) 24 U/L (5-34); Albumin 3.9 g/dL (3.5-5.0); Alkaline Phosphatase 75 U/L (40-110); Anion Gap 15 mmol/L (10-20); BUN (Urea Nitrogen) 30 mg/dL (8.4-25.7); Bilirubin, Total 0.3 mg/dL (0.2-1.2); Calc. Creatinine Clearance 0 mL/min (70-130); Calcium 8.7 mg/dL (7.8-10.44); Carbon Dioxide 22 mmol/L (22-29); Chloride 108 mmol/L (98-107); Globulin 3.2 g/dL (2.4-3.5); Glucose 95 mg/dL (70-105); Potassium 4.8 mmol/L (3.5-5.1); Protein, Total 7.1 g/dL (6.0-8.3); Sodium 140 mmol/L (136-145)
[2020-04-24 20:28] LABS: Bacteria/HPF None Seen HPF (None Seen); Bilirubin Negative (Negative); Blood, Urine Negative (Negative); Clarity Clear (Clear); Glucose, Urine (Dipstick) Normal (Negative); Ketone, Urine Negative (Negative); Leukocyte 75 Leu/uL (Negative); Nitrite Negative (Negative); Protein, Urine (Dipstick) 20 mg/dL (Neg-Trace); RBC/HPF 0-3 HPF (0-3); Specific Gravity, Urine 1.016 (1.002-1.036); Squamous Epithelial None Seen HPF (0-3); Urobilinogen Normal mg/dL (Less than 2); pH, Urine 6.5 (5.0-9.0)
[2020-04-25 04:21] LABS: SARS-CoV-2 PCR by NAA Not Detected (NotDetected)
--- NOTE | 2020-05-09 18:36 | EKG ---
Test Reason : Blood Pressure : / mmHG Vent. Rate : 087 BPM Atrial Rate : 087 BPM P-R Int : 176 ms QRS Dur : 078 ms QT Int : 356 ms P-R-T Axes : 045 008 029 degrees QTc Int : 428 ms Normal sinus rhythm Normal ECG Confirmed by ALLISON ASENCIO ([id number]), publication editor RICHARD NIETO ([id number]) on 05/09/2020 6:36:15 PM Referred By: Confirmed By:ALLISON ASENCIO
== END 2020-04-24 20:27 | disposition home or self-care (01) ==
LOC: ERS 17:35
DX: U07.1 COVID-19 (principal); I25.2 Old myocardial infarction; I10 Essential (primary) hypertension; K21.9 Gastro-esophageal reflux disease without esophagitis; E11.9 Type 2 diabetes mellitus without complications; J44.9 Chronic obstructive pulmonary disease, unspecified; E78.5 Hyperlipidemia, unspecified; Z87.891 Personal history of nicotine dependence; Z86.73 Personal history of transient ischemic attack (TIA), and cerebral infarction without residual deficits; Z79.899 Other long term (current) drug therapy; Z79.82 Long term (current) use of aspirin
CPT/HCPCS: 71045; 80053; 83880; 84484; 85025; 85379; 93005; U0003; U0005; 81003; 81015; 87635; 96374; J2930

== ENCOUNTER 2020-05-01 01:18 | Emergency (ER) | payer MEDICARE ==
[2020-05-01] MEDS ORDERED: Albuterol 200 PUFF (6.7GM INHALER) ONE (02:03)
[2020-05-01 02:04] LABS: #Basophils 0.1 thou/uL (0.0-0.2); #Eosinphils 1.1 thou/uL (0.0-0.7); #Lymphocytes 2.3 thou/uL (1.20-3.40); #Monocytes 1.1 thou/uL (0.11-0.59); #Neutrophils 4.1 thou/uL (1.40-6.50); %Eosinophils 12.3 % (0.0-10.0); %Lymphocytes 26.3 % (21.0-51.0); %Monocytes 12.7 % (0.0-10.0); %Neutrophils 47.7 % (42.0-75.0); Hemoglobin 11.9 g/dL (14.0-18.0); Mean Corpuscular HGB CONC 33.2 g/dL (32.0-36.0); Mean Corpuscular Hemoglobin 31.2 pg (27.0-31.0); Mean Corpuscular Volume 93.9 fL (78.0-98.0); Mean Platelet Volume 8.4 fL (7.4-10.4); Platelet Count 171 thou/uL (130-400); RBC Distribution Width 14.1 % (11.5-14.5); Red Blood Cell (RBC) Count 3.83 mill/uL (4.70-6.10); White Blood Cell (WBC) Count 8.6 thou/uL (4.8-10.8)
[2020-05-01 02:17] LABS: Anion Gap 14 mmol/L (10-20); BUN (Urea Nitrogen) 43 mg/dL (8.4-25.7); Calc. Creatinine Clearance 0 mL/min (70-130); Calcium 8.7 mg/dL (7.8-10.44); Carbon Dioxide 22 mmol/L (22-29); Chloride 110 mmol/L (98-107); Glucose 97 mg/dL (70-105); Sodium 141 mmol/L (136-145)
[2020-05-01] MEDS ORDERED: Dexamethasone 10 MG/ML VIAL ONE ×2 (02:52→02:53)
== END 2020-05-01 02:58 | disposition home or self-care (01) ==
LOC: ERS 01:18
DX: J44.1 Chronic obstructive pulmonary disease with (acute) exacerbation (principal); E11.22 Type 2 diabetes mellitus with diabetic chronic kidney disease; I12.9 Hypertensive chronic kidney disease with stage 1 through stage 4 chronic kidney disease, or unspecified chronic kidney disease; N18.9 Chronic kidney disease, unspecified; Z86.73 Personal history of transient ischemic attack (TIA), and cerebral infarction without residual deficits; E78.5 Hyperlipidemia, unspecified; I25.2 Old myocardial infarction; Z87.891 Personal history of nicotine dependence; Z79.82 Long term (current) use of aspirin; Z79.01 Long term (current) use of anticoagulants; Z79.899 Other long term (current) drug therapy
CPT/HCPCS: 36415; 71045; 80048; 84484; 85025; 93005; 96372; J1100

== ENCOUNTER 2020-05-13 15:01 | Emergency (ER) | payer MEDICARE ==
--- NOTE | 2020-05-13 16:02 | RAD ---
EXAM: Single view of the chest HISTORY: Shortness of breath and wheezing COMPARISON: 05/01/2020 FINDINGS: Single view of the chest shows a normal sized cardiomediastinal silhouette. There is stabl e elevation of the right hemidiaphragm. There is no evidence of consolidation, mass, or pleural effusion. Degenerative changes are seen in the spine. IMPRESSION: No evidence of acute cardiopulmonary disease
[2020-05-13 16:08] LABS: #Eosinphils 0.3 thou/uL (0.0-0.7); #Lymphocytes 0.9 thou/uL (1.20-3.40); #Neutrophils 10.1 thou/uL (1.40-6.50); %Basophils 0.2 % (0.0-1.0); %Eosinophils 2.6 % (0.0-10.0); %Lymphocytes 6.9 % (21.0-51.0); %Monocytes 8.4 % (0.0-10.0); %Neutrophils 81.9 % (42.0-75.0); Mean Corpuscular HGB CONC 33.4 g/dL (32.0-36.0); Mean Corpuscular Hemoglobin 32.5 pg (27.0-31.0); Mean Corpuscular Volume 97.3 fL (78.0-98.0); Mean Platelet Volume 9.5 fL (7.4-10.4); Platelet Count 110 thou/uL (130-400); Red Blood Cell (RBC) Count 3.68 mill/uL (4.70-6.10); White Blood Cell (WBC) Count 12.3 thou/uL (4.8-10.8)
[2020-05-13] MEDS ORDERED: methylPREDNISolone Sod Succ/PF 125 MG/2 ML VIAL ONE (16:15)
[2020-05-13 16:23] LABS: MDiff Complete? YES; Ovalocytes SLIGHT = 2-5 cells (100X) (0-1/hpf); Platelet Morphology Comment Appears Decreased; Polychromasia SLIGHT = 2-3 cells (100X) (0-2/hpf)
[2020-05-13] MEDS ORDERED: Albuterol Sulfate 1.25 MG/3 ML NEB ONE (16:25)
[2020-05-13] MEDS ORDERED: Magnesium 2 GM/50 ML BAG (IN WATER) ONE (16:25)
[2020-05-13] MEDS ORDERED: Albuterol 200 PUFF (6.7GM INHALER) ONE (16:39)
[2020-05-13 16:41] LABS: ALT (SGPT) 21 U/L (8-55); AST (SGOT) 37 U/L (5-34); Albumin 3.8 g/dL (3.5-5.0); Alkaline Phosphatase 87 U/L (40-110); Anion Gap 18 mmol/L (10-20); BUN (Urea Nitrogen) 37 mg/dL (8.4-25.7); Bilirubin, Total 0.3 mg/dL (0.2-1.2); Calc. Creatinine Clearance 0 mL/min (70-130); Calcium 8.9 mg/dL (7.8-10.44); Carbon Dioxide 20 mmol/L (22-29); Chloride 110 mmol/L (98-107); Globulin 3.2 g/dL (2.4-3.5); Glucose 165 mg/dL (70-105); Potassium 5.3 mmol/L (3.5-5.1); Sodium 143 mmol/L (136-145)
[2020-05-13 17:10] LABS: Bilirubin Negative (Negative); Blood, Urine Negative (Negative); Clarity Clear (Clear); Glucose, Urine (Dipstick) Normal (Negative); Ketone, Urine Negative (Negative); Leukocyte Negative Leu/uL (Negative); Nitrite Negative (Negative); Protein, Urine (Dipstick) 20 mg/dL (Neg-Trace); Specific Gravity, Urine 1.021 (1.002-1.036); Urobilinogen Normal mg/dL (Less than 2)
--- NOTE | 2020-05-13 18:27 | CT ---
CT angiogram chest: 05/13/2019 COMPARISON: 11/12/2019 HISTORY: Shortness of breath, COPD, elevated d-dimer TECHNIQUE: Axial CT imaging at 2.5 mm intervals from thoracic inlet through upper abdomen with IV con trast. Coronal and sagittal 3-D reformatted imaging obtained. FINDINGS: Numerous stable incompletely assessed hypodense liver lesions are noted, likely on the basi s of numerous cysts. There is a very small sliding-type hiatal hernia present. There is no significant pleural, pericardial, or mediastinal fluid noted. No significant lymphadenopathy is noted within the chest. Motion artifact and timing of the contrast bolus limits detailed assessment of the pulmonary arterial vasculature secondary to suboptimal opacification, particularly the distal pulmonary arterial structures. There is no filling defect within the pulmonary arterial trunk or either main pulmonary a rtery. There is no convincing evidence for acute pulmonary arterial embolism on either side. No pneumothorax is evident. Detailed assessment of the lung parenchyma is somewhat limited on the basis of respiratory motion art ifact. No discrete acute pulmonary parenchymal abnormality is noted. No endobronchial lesion is evident. No acute osseous abnormality is seen. IMPRESSION: Limited examination demonstrating no acute findings.
== END 2020-05-13 19:04 | disposition home or self-care (01) ==
LOC: ERS 15:01
DX: J44.1 Chronic obstructive pulmonary disease with (acute) exacerbation (principal); I10 Essential (primary) hypertension; Z86.16 Personal history of COVID-19; Z86.73 Personal history of transient ischemic attack (TIA), and cerebral infarction without residual deficits; E78.5 Hyperlipidemia, unspecified; I25.2 Old myocardial infarction; K21.9 Gastro-esophageal reflux disease without esophagitis; E11.9 Type 2 diabetes mellitus without complications; Z87.891 Personal history of nicotine dependence; Z79.82 Long term (current) use of aspirin; Z79.51 Long term (current) use of inhaled steroids; Z79.899 Other long term (current) drug therapy
CPT/HCPCS: 36415; 71045; 71275; 80053; 81003; 83735; 83880; 84484; 85025; 85379; 93005; 96365; 96375; J2930; J3475; Q9967

== ENCOUNTER 2020-05-22 15:31 | Inpatient (IN) | payer MEDICARE ==
[2020-05-22 16:05] LABS: #Basophils 0.1 thou/uL (0.0-0.2); #Eosinphils 0.3 thou/uL (0.0-0.7); #Lymphocytes 1.7 thou/uL (1.20-3.40); #Monocytes 1.4 thou/uL (0.11-0.59); #Neutrophils 7.3 thou/uL (1.40-6.50); %Basophils 0.6 % (0.0-1.0); %Eosinophils 2.4 % (0.0-10.0); %Lymphocytes 15.6 % (21.0-51.0); %Monocytes 12.8 % (0.0-10.0); %Neutrophils 68.6 % (42.0-75.0); Hemoglobin 12.3 g/dL (14.0-18.0); Mean Corpuscular HGB CONC 33.3 g/dL (32.0-36.0); Mean Corpuscular Hemoglobin 31.5 pg (27.0-31.0); Mean Corpuscular Volume 94.5 fL (78.0-98.0); Mean Platelet Volume 8.8 fL (7.4-10.4); Platelet Count 167 thou/uL (130-400); RBC Distribution Width 13.4 % (11.5-14.5); Red Blood Cell (RBC) Count 3.92 mill/uL (4.70-6.10); White Blood Cell (WBC) Count 10.6 thou/uL (4.8-10.8)
[2020-05-22 16:13] LABS: INR-International Normal Ratio 1.1; PTT 32.4 sec (22.9-36.1); Prothrombin Time 14.5 sec (12.0-14.7)
[2020-05-22 16:20] LABS: ALT (SGPT) 22 U/L (8-55); AST (SGOT) 21 U/L (5-34); Albumin 3.6 g/dL (3.5-5.0); Alkaline Phosphatase 74 U/L (40-110); Anion Gap 16 mmol/L (10-20); BUN (Urea Nitrogen) 38 mg/dL (8.4-25.7); Bilirubin, Total 0.5 mg/dL (0.2-1.2); Calc. Creatinine Clearance 0 mL/min (70-130); Calcium 8.8 mg/dL (7.8-10.44); Carbon Dioxide 21 mmol/L (22-29); Chloride 106 mmol/L (98-107); Globulin 3.3 g/dL (2.4-3.5); Glucose 159 mg/dL (70-105); Potassium 4.4 mmol/L (3.5-5.1); Protein, Total 6.9 g/dL (6.0-8.3); Sodium 139 mmol/L (136-145)
[2020-05-22] MEDS ORDERED: Aspirin Chewable 81 MG TAB ONE (16:56)
[2020-05-22] MEDS ORDERED: hydrALAZINE 20 MG/ML VIAL SLOW IVP PRN (17:29)
[2020-05-22] MEDS ORDERED: Insulin Regular 300 UNITS/3 ML VIAL SC PRN (17:29)
[2020-05-22] MEDS ORDERED: Albuterol 200 PUFF (6.7GM INHALER) ONE (17:30)
--- NOTE | 2020-05-22 17:53 | PDOC.HHP ---
Hospitalist HPI Dizziness History of Present Illness: The patient is a 60-year-old male with past medical history of hypertension, hy perlipidemia, diabetes mellitus, COPD, coronary artery disease, multiple CVAs status post residual right-sided weakness. He presented to the hospital today due to increased dizziness and weakness on the right side. Initial assessment in the ER did not reveal any acute abnormalities on his CT scan of the head. Neurology service consulted and recommended admission for further stroke evaluation. At this time, the patient is also complaining of shortness of breath and he is audibly wheezing. He denies fever or chills. Allergies/Adverse Reactions: Allergy/AdvReac Type Severity Reaction Status Date / Time No Known Drug Allergies Allergy Verified 08/15/19 19:35 Home Medications: Medication Instructions Recorded Confirmed Type Divalproex Sodium [Depakote] 1,500 mg PO HS 03/21/19 11/12/19 History Melatonin 20 mg PO HS 03/21/19 11/12/19 History Montelukast Sodium [Singulair] 10 mg PO 1700 03/21/19 11/12/19 History Pregabalin 75 mg PO TID 03/21/19 11/12/19 History busPIRone HCl [Buspirone HCl] 15 mg PO TID 03/21/19 11/12/19 History Amlodipine [Norvasc] 10 mg PO DAILY 30 Days #30 tab 03/23/19 11/12/19 Rx Atorvastatin Calcium 40 mg PO HS 08/05/19 11/12/19 History Travoprost [Travatan Z] 1 drop EA EYE DAILY 10/07/19 11/12/19 History traZODone HCl [Trazodone HCl] 100 mg PO HS 10/07/19 11/12/19 History Albuterol Sulfate [Albuterol 18 gm IH Q4HR #1 hfa.aer.ad 10/08/19 11/12/19 Rx Sulfate Hfa] Tiotropium [place] [Spiriva 2 inh IH DAILY #1 inhaler 10/08/19 11/12/19 Rx Respimat] risperiDONE [RisperDAL] 1 mg PO HS tab 10/08/19 11/12/19 Rx Acetaminophen [Tylenol Regular 650 mg PO Q4H PRN tab 11/14/19 Rx Strength] Azithromycin [Zithromax] 250 mg PO DAILY 2 Days #2 tab 11/14/19 Rx Tamsulosin HCl [Flomax] 0.4 mg PO DAILY cap 11/14/19 Rx metFORMIN [Glucophage] 500 mg PO QAM-WM 30 Days #60 tab 11/14/19 Rx predniSONE 20 mg PO DAILY 11 Days #10 tab 11/14/19 Rx Past History: PMHx: As noted above PSHx: Cholecystectomy, coronary stenting FHx: Noncontributory for the current presentation Social: Former cigarette smoker. Hospitalist HPI ROS All other systems reviewed; all pertinent +/- noted in HPI/Subj Hospitalist Exam General Appearance: awake alert ENT: normocephalic atraumatic Neck: supple Heart: RRR, no murmur Respiratory: no tachypnea, wheezes Gastrointestinal: soft Extremities: no cyanosis, no clubbing Neurological - other findings: Mild right-sided weakness Hospitalist Results Result Diagrams: 05/22/20 15:48 05/22/20 15:48 Lab results: Laboratory Last Values WBC 10.6 thou/uL (4.8-10.8) 05/22/20 15:48 RBC 3.92 mill/uL (4.70-6.10) L 05/22/20 15:48 Hgb 12.3 g/dL (14.0-18.0) L 05/22/20 15:48 Hct 37.0 % (42.0-52.0) L 05/22/20 15:48 MCV 94.5 fL (78.0-98.0) 05/22/20 15:48 MCH 31.5 pg (27.0-31.0) H 05/22/20 15:48 MCHC 33.3 g/dL (32.0-36.0) 05/22/20 15:48 RDW 13.4 % (11.5-14.5) 05/22/20 15:48 Plt Count 167 thou/uL (130-400) 05/22/20 15:48 MPV 8.8 fL (7.4-10.4) 05/22/20 15:48 Neutrophils % 68.6 % (42.0-75.0) 05/22/20 15:48 Lymphocytes % 15.6 % (21.0-51.0) L 05/22/20 15:48 Monocytes % 12.8 % (0.0-10.0) H 05/22/20 15:48 Eosinophils % 2.4 % (0.0-10.0) 05/22/20 15:48 Basophils % 0.6 % (0.0-1.0) 05/22/20 15:48 Neutrophils # 7.3 thou/uL (1.40-6.50) H 05/22/20 15:48 Lymphocytes # 1.7 thou/uL (1.20-3.40) 05/22/20 15:48 Monocytes # 1.4 thou/uL (0.11-0.59) H 05/22/20 15:48 Eosinophils # 0.3 thou/uL (0.0-0.7) 05/22/20 15:48 Basophils # 0.1 thou/uL (0.0-0.2) 05/22/20 15:48 PT 14.5 sec (12.0-14.7) 05/22/20 15:48 INR 1.1 05/22/20 15:48 APTT 32.4 sec (22.9-36.1) 05/22/20 15:48 Sodium 139 mmol/L (136-145) 05/22/20 15:48 Potassium 4.4 mmol/L (3.5-5.1) 05/22/20 15:48 Chloride 106 mmol/L (98-107) 05/22/20 15:48 Carbon Dioxide 21 mmol/L (22-29) L 05/22/20 15:48 Anion Gap 16 mmol/L (10-20) 05/22/20 15:48 BUN 38 mg/dL (8.4-25.7) H 05/22/20 15:48 Creatinine 2.05 mg/dL (0.7-1.3) H 05/22/20 15:48 Estimated GFR (MDRD) 33 05/22/20 15:48 Glucose 159 mg/dL (70-105) H 05/22/20 15:48 POC Glucose 151 mg/dL (70-100) H 05/22/20 15:42 Calcium 8.8 mg/dL (7.8-10.44) 05/22/20 15:48 Total Bilirubin 0.5 mg/dL (0.2-1.2) 05/22/20 15:48 AST 21 U/L (5-34) 05/22/20 15:48 ALT 22 U/L (8-55) 05/22/20 15:48 Alkaline Phosphatase 74 U/L (40-110) 05/22/20 15:48 Creatine Kinase 98 U/L (30-200) 05/22/20 15:48 Troponin I 0.016 ng/mL (< 0.028) 05/22/20 15:48 Serum Total Protein 6.9 g/dL (6.0-8.3) 05/22/20 15:48 Albumin 3.6 g/dL (3.5-5.0) 05/22/20 15:48 Globulin 3.3 g/dL (2.4-3.5) 05/22/20 15:48 Albumin/Globulin Ratio 1.1 g/dL (1.2-2.2) L 05/22/20 15:48 Hospitalist H&P A/P (1) CVA (cerebral vascular accident) Code(s): I63.9 - CEREBRAL INFARCTION, UNSPECIFIED Status: Acute Assessment and Plan: The patient was history of multiple CVAs in the past. His symptoms are nonspecific. We will obtain MRI of the brain and echocardiogram to complete the work-up. CT angiogram of the head and neck was ordered by ER despite the abnormal kidney function. The result is pending at this time. Continue aspirin and atorvastatin. We will allow for permissive hypertension and treat for systolic blood pressure greater than 220 or diastolic greater than 120. (2) COPD (chronic obstructive pulmonary disease) Status: Acute Assessment and Plan: The patient is audibly wheezing. I will start DuoNeb every 4 hours in addition to prednisone 40 mg orally daily. He denies cough or fever so I will not add antibiotics at this time. (3) CKD (chronic kidney disease), stage III Status: Chronic Assessment and Plan: Creatinine level at baseline. However, the patient received contrast material. I will start IV normal saline at 75 cc/h (4) HLD (hyperlipidemia) Code(s): E78.5 - HYPERLIPIDEMIA, UNSPECIFIED Status: Chronic Assessment and Plan: Atorvastatin as above. (5) Hypertension Code(s): I10 - ESSENTIAL (PRIMARY) HYPERTENSION Status: Chronic Assessment and Plan: Permissive hypertension as above.
--- NOTE | 2020-05-22 18:15 | RAD ---
PORTABLE CHEST ONE VIEW: 05/22/20 at 4:12 p.m. HISTORY: Right sided weakness and dizziness. COMPARISON: 05/13/20. FINDINGS: There is stable elevation of the right hemidiaphragm. The heart size is normal. No lobar consolidatio n, pneumothoraces, or pleural effusions are seen. There are degenerative changes in the spine. IMPRESSION: No radiographic evidence of acute cardiopulmonary process. POS: [facility]
[2020-05-22] MEDS ORDERED: predniSONE 20 MG TAB PO SCH (18:30)
--- NOTE | 2020-05-22 20:06 | CT ---
CT HEAD WITHOUT CONTRAST: 05/22/20 INDICATIONS: Stroke protocol. Right sided weakness. COMPARISON: CT head 08/05/19. There is cortical volume loss which is stable. Mild chronic ischemic white matter changes appear stab le. There are focal areas of lucency in the deep white matter consistent with numerous old lacunar i nfarcts. Old lacunar infarct in the left thalamus is again noted. There is evidence of an old lacunar infarct in the brain stem at the level of the mira which was present previously. There is subcortica l white matter lucency along the insular cortex bilaterally consistent with ischemic change which is stable. There is no evidence of acute cortical infarct. There is no mass or hemorrhage. IMPRESSION: 1. Extensive ischemic changes as described above which appear chronic and stable. A new lacunar infarct may not be apparent on CT and MRI is recommended. 2. There is no evidence of acute cortical infarct. Findings relayed to Dr. Mckeon at 3:58 p.m. POS: [facility]
--- NOTE | 2020-05-22 20:27 | CT ---
CTA HEAD: CTA NECK: 05/22/20 Axial tomograms obtained through the head and neck following angio protocol with multiplanar reconstr uctions and 3D postprocessing. INDICATIONS: Stroke protocol. CTA HEAD: The intracranial internal carotid arteries are patent. There are atherosclerotic calcifications seen in the cavernous ICAs bilaterally without significant stenosis. Anterior cerebral arteries appear pat ent and symmetric. Middle cerebral arteries are patent. No evidence of M1 stenosis or occlusion. The intracranial vertebral arteries are patent. The basilar artery is patent. Both posterior cerebral arteries are patent. IMPRESSION: No evidence of proximal cerebral artery stenosis or occlusion. CTA NECK: No evidence of stenosis at the origin of the arch vessels. Common carotid arteries are patent and sym metric. Atherosclerotic calcifications seen in both carotid bulbs. There is moderate stenosis at the origin of the left internal carotid artery which does approach 50% diameter by NASCET criteria. The left ICA above the bulb is unremarkable. The right ICA shows mild atherosclerotic changes at its origin but no significant stenosis in the ext racranial right ICA. Vertebral arteries are patent and symmetric bilaterally. No soft tissue abnormality. IMPRESSION: Evidence of hemodynamically significant stenosis in the origin of the left internal carotid artery. C TA neck otherwise unremarkable. Findings relayed to Dr. Mckeon. Code CR POS: [facility]
[2020-05-22] MEDS: Sodium Chloride 0.9% 1,000 ML IV SCH (20:49)
[2020-05-22] MEDS: Pregabalin 75 MG CAP PO SCH (20:49)
[2020-05-22] MEDS: Divalproex Sodium DR 500 MG TAB PO SCH (20:49)
[2020-05-22] MEDS: traZODone HCl 50 MG TAB PO SCH (20:50)
[2020-05-22] MEDS: Atorvastatin Calcium 40 MG TAB PO SCH (20:50)
[2020-05-22 21:53] VITALS: BMI 32.2
--- NOTE | 2020-05-23 05:07 | PDOC.FM ---
- Subjective Subjective: Patient is resting comfortably in bed. Does report that he has some aching in his b/l UE. States that he has soreness in the left side of his chest and LUQ from them pressing down with the ultrasound probe for the echo. States he is wheezing and needs another breathing treatment as he has not had one since last night. Denies fever/chills, notes his weakness has improved. - Objective MAR Reviewed: Yes Vital Signs & Weight: Vital Signs (12 hours) Temp Pulse Resp BP BP Pulse Ox 05/23/20 03:37 98.2 F 84 18 145/71 H 95 05/23/20 02:40 95 05/23/20 00:59 98.9 F 79 18 159/83 H 98 05/22/20 23:06 94 L 05/22/20 20:00 97.7 F 94 16 131/81 98 Weight Admit Weight 96.162 kg Weight 96.162 kg Result Diagrams: 05/23/20 09:21 05/23/20 09:21 Phys Exam - Physical Examination Constitutional: NAD HEENT: PERRLA, moist MMs expiratory wheeze throughout Cardiovascular: RRR, no significant murmur chest wall tenderness to palpation on the left Gastrointestinal: soft, non-tender Musculoskeletal: no edema dysarthria, strength intact b/l Deviation from normal: alert to self, unable to assess place and time 2/2 dysarthria Dx/Plan - Plan Plan: CVA vs TIA The patient was history of multiple CVAs in the past CT Brain - extensive ischemic changes that are chronic and stable CT Head & neck - ICA stenosis of 50% - Brain MRI and Echo ordered - Continue aspirin and atorvastatin. - We will allow for permissive hypertension and treat for systolic blood pressure greater than 220 or diastolic greater than 120 - q4h neuro checks Acute Exacerbation of COPD Audible wheeze - q4h duobnebs - prednisone 40mg daily (started 05/22) CKD, stage III Creatinine level at baseline, improved from 2 > 1.84 today - am BMPs HLD - resume atorvastatin Bipolar/Anxiety - resume depakote, rsiperidone HTN Permissive hypertension as above, holding amlodipine PCP: Richie Craig Addendum - Attending - Attending Attestation Date/Time: 05/23/20 0645 I personally evaluated the patient and discussed the management with Dr. Leonard. I agree with the History, Examination, Assessment and Plan documented above with any addition or exceptions noted below. Echo is pending. Neuro eval pending. Pt has passed a bedside swallow. MRI pending today. Allowing for permissible hypertension
[2020-05-23 06:10] LABS: Cardiac Risk 2.3 (Less than 4.5)
[2020-05-23] MEDS: Aspirin 325 mg Enteric Coated Tablet PO SCH (09:18)
[2020-05-23] MEDS: Pregabalin 75 MG CAP PO SCH ×3 (09:18→20:36)
[2020-05-23] MEDS: Enoxaparin Sodium 40 MG/0.4 ML SYRINGE SC SCH (09:21)
[2020-05-23] MEDS: predniSONE 20 MG TAB PO SCH (09:21)
[2020-05-23] MEDS: Sodium Chloride 0.9% 1,000 ML IV SCH (09:22)
[2020-05-23] MEDS: Tamsulosin HCl 0.4 MG CAP PO SCH (09:22)
[2020-05-23 09:38] LABS: #Basophils 0.1 thou/uL (0.0-0.2); #Lymphocytes 1.1 thou/uL (1.20-3.40); #Monocytes 0.3 thou/uL (0.11-0.59); %Basophils 0.8 % (0.0-1.0); %Eosinophils 0.5 % (0.0-10.0); %Lymphocytes 11.2 % (21.0-51.0); %Monocytes 3.1 % (0.0-10.0); %Neutrophils 84.5 % (42.0-75.0); Mean Corpuscular HGB CONC 32.9 g/dL (32.0-36.0); Mean Corpuscular Hemoglobin 30.4 pg (27.0-31.0); Mean Corpuscular Volume 92.4 fL (78.0-98.0); Mean Platelet Volume 8.7 fL (7.4-10.4); Platelet Count 172 thou/uL (130-400); RBC Distribution Width 13.4 % (11.5-14.5); Red Blood Cell (RBC) Count 3.95 mill/uL (4.70-6.10); White Blood Cell (WBC) Count 9.4 thou/uL (4.8-10.8)
[2020-05-23] MEDS ORDERED: Lorazepam 2 MG/ML VIAL SLOW IVP SCH (09:45)
[2020-05-23 09:53] LABS: Anion Gap 12 mmol/L (10-20); BUN (Urea Nitrogen) 35 mg/dL (8.4-25.7); Calc. Creatinine Clearance 59 mL/min (70-130); Calcium 8.5 mg/dL (7.8-10.44); Carbon Dioxide 24 mmol/L (22-29); Chloride 109 mmol/L (98-107); Glucose 126 mg/dL (70-105); Potassium 4.9 mmol/L (3.5-5.1); Sodium 140 mmol/L (136-145)
[2020-05-23] MEDS: Ipratropium/Albuterol Sulfate 4 GM AER IH SCH ×4 (10:31→23:06)
[2020-05-23] MEDS ORDERED: Clopidogrel Bisulfate 75 MG TAB PO SCH (11:15)
--- NOTE | 2020-05-23 11:35 | MRI ---
MRI OF BRAIN PERFORMED WITHOUT CONTRAST ENHANCEMENT: HISTORY: Stroke. COMPARISON: CT of the brain performed 05/22/2020 and a MRI that was performed 08/05/2019. There is marked generalized ventricular and sulcal prominence. There area areas of chronic ischemic white matter change noted. Once again, there is evidence of bilateral old remote lacunar hemorrhagic infarcts. This is a stable appearance as compared to the prior study. I do not see any definitive signs of an acute infarct. High over the left frontal convexity, there is a questionable area of res tricted diffusion, but I think this is artifactual when reviewing the previous MRI as well as an olde r study. This was not felt to represent a true area of restricted diffusion. No mass ef fect. Mastoid air cells show some mucosal change. The visualized sinuses appear clear. IMPRESSION: No acute intracranial abnormalities. POS: [facility]
--- NOTE | 2020-05-23 11:50 | CON ---
DATE OF CONSULTATION: 05/23/2020 CONSULTING PHYSICIAN: Hospitalist Services. IMPRESSION: 1. Transient ischemic attack with transient headache, nausea, dizziness, slurred speech and right arm weakness suggesting possible basilar ischemic event. 2. Aspirin failure. PLAN: 1. Add Plavix 75 mg per day. 2. Continue his aspirin and a statin. HISTORY OF PRESENT ILLNESS: Mr. Hinton is a 60-year-old male with past history of COPD, hypertension, alcohol use, coronary artery disease, hyperlipidemia, chronic TB, chronic bipolar disorder, diabetes, prior strokes and renal insufficiency. He presented with acute neurologic symptoms yesterday. His CT did not show any acute ischemic changes but fairly extensive small-vessel disease. CT angiogram showed a left ICA stenosis of around 50%. He is also complaining of some shortness of breath. His symptoms only lasted a matter of minutes by his recollection. He reports being compliant with his medication, was taking his aspirin daily. PAST MEDICAL HISTORY: As listed above. ALLERGIES: NONE REPORTED. SOCIAL HISTORY: No tobacco use. FAMILY HISTORY: Noncontributory. REVIEW OF SYSTEMS: Ten-system review of systems is otherwise negative. PHYSICAL EXAMINATION: VITAL SIGNS: Blood pressure 147/78, pulse 84, respirations 16, and temperature 98.2. HEENT: Pupils equal. Conjunctivae clear. Oropharynx clear. Cranium, normocephalic and atraumatic. NECK: Supple. No lymphadenopathy. ABDOMEN: Soft and nontender. EXTREMITIES: No cyanosis or edema. SKIN: Clear. NEUROLOGIC: He was alert and cooperative. His speech was fluent and clear. No cranial nerve deficits were elicited. Motor exam showed good strength bilaterally. There was no fix or drift. Sensation was diminished in the right foot as compared to the left. Plantar responses were mute. He can walk with use of a cane. IMAGING STUDIES: Echo and MRI are pending. SUMMARY: This is an elderly gentleman with numerous risk factors, who presented with some transient deficits suggestive of a basilar TIA. I have started Plavix. I would be happy to follow up with him as an outpatient. Job ID: [id number]
[2020-05-23] MEDS: Montelukast Sodium 10 mg Tablet PO SCH (16:46)
[2020-05-23] MEDS ORDERED: Ondansetron ODT 4 MG TAB PO SCH (17:45)
[2020-05-23] MEDS: risperiDONE 1 MG TAB PO SCH (20:35)
[2020-05-23] MEDS: Divalproex Sodium DR 500 MG TAB PO SCH (20:35)
[2020-05-23] MEDS: Atorvastatin Calcium 40 MG TAB PO SCH (20:35)
[2020-05-23] MEDS: traZODone HCl 50 MG TAB PO SCH (20:36)
[2020-05-24] MEDS: Ipratropium/Albuterol Sulfate 4 GM AER IH SCH ×6 (03:33→22:25)
[2020-05-24 04:57] LABS: #Basophils 0.1 thou/uL (0.0-0.2); #Eosinphils 0.1 thou/uL (0.0-0.7); #Lymphocytes 2.4 thou/uL (1.20-3.40); #Monocytes 0.9 thou/uL (0.11-0.59); #Neutrophils 6.4 thou/uL (1.40-6.50); %Basophils 0.5 % (0.0-1.0); %Eosinophils 0.9 % (0.0-10.0); %Lymphocytes 24.3 % (21.0-51.0); %Monocytes 9.5 % (0.0-10.0); %Neutrophils 64.7 % (42.0-75.0); Hemoglobin 10.9 g/dL (14.0-18.0); Mean Corpuscular HGB CONC 33.1 g/dL (32.0-36.0); Mean Corpuscular Hemoglobin 30.7 pg (27.0-31.0); Mean Corpuscular Volume 92.7 fL (78.0-98.0); Mean Platelet Volume 8.5 fL (7.4-10.4); Platelet Count 173 thou/uL (130-400); RBC Distribution Width 13.2 % (11.5-14.5); Red Blood Cell (RBC) Count 3.54 mill/uL (4.70-6.10); White Blood Cell (WBC) Count 9.9 thou/uL (4.8-10.8)
[2020-05-24 05:22] LABS: Anion Gap 12 mmol/L (10-20); BUN (Urea Nitrogen) 33 mg/dL (8.4-25.7); Calc. Creatinine Clearance 70 mL/min (70-130); Calcium 8.4 mg/dL (7.8-10.44); Carbon Dioxide 22 mmol/L (22-29); Chloride 107 mmol/L (98-107); Glucose 85 mg/dL (70-105); Potassium 4.4 mmol/L (3.5-5.1); Sodium 137 mmol/L (136-145)
--- NOTE | 2020-05-24 05:31 | PDOC.FM ---
- Subjective Subjective: Patient is resting comfortably in bed. Reports that he has had some nausea overnight. He notes that he doesn't typically have nausea, denies abdominal pain or bowel changes. He states that his breathing is about the same and notes that he has to use his nebulizer at home for wheezing. He denies chest pain, shortness of breath. States that his strength feels improved, and notes that he can walk around fine with PT. He feels comfortable going back home. - Objective MAR Reviewed: Yes Vital Signs & Weight: Vital Signs (12 hours) Temp Pulse Resp BP BP Pulse Ox 05/24/20 03:21 98.0 F 63 16 129/79 96 05/23/20 23:06 74 140/74 05/23/20 20:04 97 05/23/20 19:00 98.3 F 93 20 180/95 H 97 Weight Admit Weight 96.162 kg Weight 96.162 kg I&O: 05/22/20 05/23/20 05/24/20 06:59 06:59 06:59 Intake Total 480 815 Output Total 500 750 Balance -20 65 Result Diagrams: 05/24/20 04:44 05/24/20 04:44 Phys Exam - Physical Examination Constitutional: NAD HEENT: PERRLA, moist MMs faint wheezing throughout Cardiovascular: RRR, no significant murmur Gastrointestinal: soft, non-tender, positive bowel sounds Musculoskeletal: no edema, pulses present diminished strength R>L, dysarthria Psychiatric: A&O x 3 Skin: no rash Dx/Plan - Plan Plan: TIA The patient was history of multiple CVAs in the past CT Brain - extensive ischemic changes that are chronic and stable CT Head & neck - ICA stenosis of 50% Brain MRI: no abnormalities Neurology, Dr. Sexton consulted - started on Plavix - f/u outpatient Echo: diastolic dysfunction - Continue aspirin and atorvastatin. - PT recommends rehab vs SNU, will consult CM Acute Exacerbation of COPD Audible wheeze Did not start azithromycin 2/2 no fever/cough - q4h duobnebs - prednisone 40mg daily (started 05/22) CKD, stage III Creatinine level at baseline, improved from 2 > 1.84> 1.53 today - am BMPs HLD - resume atorvastatin Bipolar/Anxiety - resume depakote, rsiperidone HTN - restart amlodipine Dispo: Awaiting placement rehab vs SNU. PCP: Richie Craig Addjorgeum - Attending - Attending Attestation Date/Time: 05/24/20 1222 I personally evaluated the patient and discussed the management with Dr. Leonard. I agree with the History, Examination, Assessment and Plan documented above with any addition or exceptions noted below. No new stroke on MRI. PT recommends rehab placement. Will place case mgmt referral.
[2020-05-24] MEDS ORDERED: Promethazine 25 MG TAB PO SCH (06:45)
[2020-05-24] MEDS ORDERED: Non-Formulary Item 1 EACH (Tiotropium Bromide 4 GM Inhaler) IH SCH (09:00)
[2020-05-24] MEDS: risperiDONE 1 MG TAB PO SCH ×2 (09:02→20:35)
[2020-05-24] MEDS: Aspirin 325 mg Enteric Coated Tablet PO SCH (09:03)
[2020-05-24] MEDS: Pregabalin 75 MG CAP PO SCH ×3 (09:03→20:35)
[2020-05-24] MEDS: predniSONE 20 MG TAB PO SCH (09:04)
[2020-05-24] MEDS: Amlodipine 10 MG TAB PO SCH (09:06)
[2020-05-24] MEDS: Tamsulosin HCl 0.4 MG CAP PO SCH (09:06)
[2020-05-24] MEDS: Clopidogrel Bisulfate 75 MG TAB PO SCH (09:07)
[2020-05-24] MEDS: Enoxaparin Sodium 40 MG/0.4 ML SYRINGE SC SCH (09:07)
[2020-05-24] MEDS: Montelukast Sodium 10 mg Tablet PO SCH (15:59)
[2020-05-24] MEDS: traZODone HCl 50 MG TAB PO SCH (20:34)
[2020-05-24] MEDS: Atorvastatin Calcium 40 MG TAB PO SCH (20:35)
[2020-05-24] MEDS: Divalproex Sodium DR 500 MG TAB PO SCH (20:35)
[2020-05-25] MEDS: Ipratropium/Albuterol Sulfate 4 GM AER IH SCH ×6 (03:52→22:36)
--- NOTE | 2020-05-25 05:43 | PDOC.FM ---
- Subjective Subjective: No acute overnight events. Continues to c/o nausea, no vomiting. Feels his weakness is only somewhat improved, worst in RLE. No additional complaints this AM. - Objective Vital Signs & Weight: Vital Signs (12 hours) Temp Pulse Resp BP Pulse Ox 05/25/20 04:36 97.6 F 64 20 151/69 H 94 L 05/24/20 19:45 97.8 F 71 18 144/79 H 97 Weight Admit Weight 96.162 kg Weight 96.162 kg I&O: 05/23/20 05/24/20 05/25/20 06:59 06:59 06:59 Intake Total 274 388 9869 Output Total 500 1250 1175 Balance -20 -315 25 Result Diagrams: 05/24/20 04:44 05/24/20 04:44 Phys Exam - Physical Examination Constitutional: NAD HEENT: moist MMs Neck: supple Respiratory: no wheezing, clear to auscultation bilateral Cardiovascular: RRR, no significant murmur Gastrointestinal: non-tender mild distention, umbilical hernia Musculoskeletal: no edema, pulses present Neurological: normal sensation, moves all 4 limbs mild R sided leg weakness, significant chronic dysarthria Psychiatric: A&O x 3 Deviation from normal: flat affect Skin: no rash, normal turgor, cap refill <2 seconds Dx/Plan - Plan Plan: TIA Hx multiple CVAs in past. CT here significant for extensive but chronic/stable ischemic changes. CTA head/neck with 50% stenosis of ICA. MRI brain wnl. Neurology, Dr. Sexton consulted - started on Plavix - f/u outpatient Echo: diastolic dysfunction - Continue aspirin and atorvastatin. - PT recommends rehab vs SNU, will consult CM Acute Exacerbation of COPD Audible wheeze Did not start azithromycin 2/ no fever/cough - q4h duobnebs - prednisone 40mg daily (started 05/22) CKD, stage III Creatinine level at baseline, improved from 2 > 1.84> 1.53 - am BMPs HLD - resume atorvastatin Bipolar/Anxiety - resume depakote, rsiperidone HTN - restart amlodipine Dispo: Awaiting placement rehab vs SNU. PCP: Richie Craig Addendum - Attending - Attending Attestation Date/Time: 05/25/20 2202 I personally evaluated the patient and discussed the management with Dr. Seymour. I agree with the History, Examination, Assessment and Plan documented above with any addition or exceptions noted below. Add lisinopril for BP control. consider outpt CV surg eval for left internal carotid stenosis. Placement pending.
[2020-05-25] MEDS: Enoxaparin Sodium 40 MG/0.4 ML SYRINGE SC SCH (10:34)
[2020-05-25] MEDS: risperiDONE 1 MG TAB PO SCH ×2 (10:35→20:20)
[2020-05-25] MEDS: predniSONE 20 MG TAB PO SCH (10:35)
[2020-05-25] MEDS: Amlodipine 10 MG TAB PO SCH (10:35)
[2020-05-25] MEDS: Clopidogrel Bisulfate 75 MG TAB PO SCH (10:35)
[2020-05-25] MEDS: metFORMIN 500 MG TAB PO SCH (10:35)
[2020-05-25] MEDS: Pregabalin 75 MG CAP PO SCH ×3 (10:36→20:20)
[2020-05-25] MEDS: Tamsulosin HCl 0.4 MG CAP PO SCH (10:36)
[2020-05-25] MEDS: Aspirin 325 mg Enteric Coated Tablet PO SCH (10:36)
[2020-05-25 15:27] LABS: Hemoglobin A1c 5.4 % (4.0-6.0)
[2020-05-25] MEDS: Acetaminophen 325 MG TAB PO PRN (16:22)
[2020-05-25] MEDS: Montelukast Sodium 10 mg Tablet PO SCH (16:22)
[2020-05-25] MEDS: Divalproex Sodium DR 500 MG TAB PO SCH (20:19)
[2020-05-25] MEDS: traZODone HCl 50 MG TAB PO SCH (20:20)
[2020-05-25] MEDS: Atorvastatin Calcium 40 MG TAB PO SCH (20:20)
[2020-05-25] MEDS: Docusate 100 MG CAP PO SCH (20:21)
[2020-05-25 22:52] LABS: SARS-CoV-2 PCR by NAA Not Detected (NotDetected)
[2020-05-26] MEDS: Ipratropium/Albuterol Sulfate 4 GM AER IH SCH ×4 (02:31→14:27)
--- NOTE | 2020-05-26 06:56 | PDOC.FM ---
- Subjective Subjective: No acute overnight events. c/o nausea, reports he has not had bowel movement. no additional complaints. feeling reading to go to rehab vs snf. - Objective Vital Signs & Weight: Vital Signs (12 hours) Temp Pulse Resp BP Pulse Ox 05/26/20 03:32 97.7 F 63 18 144/82 H 98 05/25/20 23:51 98.2 F 69 16 136/80 96 05/25/20 20:21 96 05/25/20 20:00 98.7 F 93 20 133/79 96 Weight Admit Weight 96.162 kg Weight 101.196 kg I&O: 05/24/20 05/25/20 05/26/20 06:59 06:59 06:59 Intake Total 935 1320 816 Output Total 1250 2650 1281 Balance -661 -9837 -272 Result Diagrams: 05/24/20 04:44 05/24/20 04:44 Phys Exam - Physical Examination Constitutional: NAD HEENT: moist MMs Neck: supple Respiratory: no wheezing, no rales, no rhonchi, clear to auscultation bilateral Cardiovascular: RRR, no significant murmur Gastrointestinal: non-tender mildly distended, hernia present Musculoskeletal: no edema, pulses present Neurological: moves all 4 limbs dysarthria unchanged Psychiatric: normal affect, A&O x 3 Skin: normal turgor, cap refill <2 seconds Dx/Plan - Plan Plan: TIA, resolved Hx multiple CVAs in past. CT here significant for extensive but chronic/stable ischemic changes. CTA head/neck with 50% stenosis of ICA. MRI brain wnl. Neurology, Dr. Sexton consulted - started on Plavix - f/u outpatient Echo: diastolic dysfunction - Continue aspirin and atorvastatin. - PT recommends rehab vs SNU, will consult CM Acute Exacerbation of COPD, improved Audible wheeze Did not start azithromycin 2/2 no fever/cough - q4h duobnebs - prednisone 40mg daily (started 05/22) CKD, stage III Creatinine level at baseline, improved from 2 > 1.84> 1.53 - am BMPs HLD - resume atorvastatin Bipolar/Anxiety - resume depakote, rsiperidone HTN - restart amlodipine Dispo: Medically stable, awaiting placement rehab vs SNU. PCP: Richie Craig Addendum - Attending - Attending Attestation Date/Time: 05/26/20 8765 I personally evaluated the patient and discussed the management with Dr. Seymour. I agree with the History, Examination, Assessment and Plan documented above with any addition or exceptions noted below.
[2020-05-26] MEDS: predniSONE 20 MG TAB PO SCH (09:00)
[2020-05-26] MEDS: Tamsulosin HCl 0.4 MG CAP PO SCH (09:00)
[2020-05-26] MEDS ORDERED: Lisinopril 5 MG TAB PO SCH (09:00)
[2020-05-26] MEDS: metFORMIN 500 MG TAB PO SCH (09:00)
[2020-05-26] MEDS: Enoxaparin Sodium 40 MG/0.4 ML SYRINGE SC SCH (09:00)
[2020-05-26] MEDS ORDERED: Senokot 8.6 MG TAB PO SCH (09:00)
[2020-05-26] MEDS: Amlodipine 10 MG TAB PO SCH (09:01)
[2020-05-26] MEDS: risperiDONE 1 MG TAB PO SCH (09:01)
[2020-05-26] MEDS: Docusate 100 MG CAP PO SCH (09:01)
[2020-05-26] MEDS: Aspirin 325 mg Enteric Coated Tablet PO SCH (09:02)
[2020-05-26] MEDS: Clopidogrel Bisulfate 75 MG TAB PO SCH (09:02)
[2020-05-26] MEDS: Pregabalin 75 MG CAP PO SCH ×2 (09:03→14:57)
[2020-05-26] MEDS: Acetaminophen 325 MG TAB PO PRN ×2 (09:07→13:56)
[2020-05-26] MEDS ORDERED: Promethazine 25 MG TAB PO SCH (09:30)
[2020-05-26 15:53] VITALS: BP 141/82; TEMP 97.9
[2020-05-26] MEDS: Montelukast Sodium 10 mg Tablet PO SCH (17:04)
--- NOTE | 2020-05-27 09:40 | DIS ---
DATE OF ADMISSION: 05/23/2020 DATE OF DISCHARGE: 05/26/2020 RESIDENT: Sisi Seymour DO ADMITTING ATTENDING: Litzy Barber MD DISCHARGE ATTENDING: Emerson Javier MD PRIMARY DIAGNOSIS: Transient ischemic attack. SECONDARY DIAGNOSES: 1. Chronic obstructive pulmonary disease exacerbation. 2. Chronic kidney disease stage 3. 3. Hyperlipidemia. 4. Bipolar/anxiety disorder. 5. Hypertension. 6. History of multiple cerebrovascular accidents. DISCHARGE MEDICATIONS: 1. Depakote 1500 mg p.o. at bedtime. 2. Singulair 10 mg p.o. 3. Pregabalin 75 mg p.o. b.i.d. 4. Norvasc 10 mg p.o. daily. 5. Atorvastatin 40 mg p.o. at bedtime. 6. Trazodone 100 mg p.o. at bedtime. 7. Spiriva 2 inhalations daily. 8. Tylenol 650 mg p.o. q.4 hours p.r.n. 9. Tamsulosin 0.4 mg p.o. daily. 10. Risperdal 2 mg p.o. b.i.d. 11. Albuterol inhaler q.4 hours p.r.n. 12. Aspirin 325 mg daily. 13. Plavix 75 mg p.o. daily. 14. Senokot one tab p.o. q.a.m. p.r.n. 15. Lisinopril 5 mg p.o. daily. Discontinued medications none. HISTORY OF PRESENT ILLNESS AND HOSPITAL COURSE: Mr. Hinton is a 60-year-old gentleman with a history of multiple strokes with some residual deficits from past strokes including dysarthria, who presented to the hospital due to increasing dizziness, weakness on the right side. A CTA in the ER did not reveal any acute abnormalities. He was initially admitted to the hospitalist team and the neurology service was consulted, Dr. Sexton for further stroke evaluation. At the time of admission, he was also noted to be wheezing. A CTA of the head and neck was performed in the emergency department revealing 50% stenosis of the left internal carotid artery. Because he developed symptoms of TIA despite therapy with aspirin, Plavix 75 mg p.o. daily was added by Neurology. Because of his symptoms including nausea and vomiting, it was suspected that his TIA was possibly a basilar TIA. The whole symptoms lasted only for a short period of time and then resolved. He does have significant residual effects from previous strokes and after evaluation by Physical Therapy and Occupational Therapy, it was recommended that the patient either go to inpatient rehab or [facility] facility upon discharge. Echocardiogram was also performed revealing ejection fraction of 55% to 60%. He remained stable and pending placement for a few days before he was ultimately discharged to [facility]. DISPOSITION: Stable. DISCHARGE INSTRUCTIONS: 1. Location [facility] facility at [facility]. 2. Diet, heart healthy diet. 3. Activity as tolerated. 4. Followup with PCP, Dr. Craig within 1 or 2 weeks and with Neurology, Dr. Sexton. Job ID: [id number]
== END 2020-05-26 17:30 | DRG 69 ==
LOC: ERS 15:31 → 2SE 17:49 → OBSVTOIN 05-23 11:01
PROVIDERS: ADMIT Internal Medicine; ATTEND Internal Medicine
DX: G45.0 Vertebro-basilar artery syndrome (principal); I69.351 Hemiplegia and hemiparesis following cerebral infarction affecting right dominant side; J44.1 Chronic obstructive pulmonary disease with (acute) exacerbation; Z20.822 Contact with and (suspected) exposure to COVID-19; N18.30 Chronic kidney disease, stage 3 unspecified; E78.5 Hyperlipidemia, unspecified; F41.9 Anxiety disorder, unspecified; I12.9 Hypertensive chronic kidney disease with stage 1 through stage 4 chronic kidney disease, or unspecified chronic kidney disease; I25.10 Atherosclerotic heart disease of native coronary artery without angina pectoris; E11.22 Type 2 diabetes mellitus with diabetic chronic kidney disease; K21.9 Gastro-esophageal reflux disease without esophagitis; F31.9 Bipolar disorder, unspecified; I69.322 Dysarthria following cerebral infarction; Z79.899 Other long term (current) drug therapy; Z79.52 Long term (current) use of systemic steroids; Z79.84 Long term (current) use of oral hypoglycemic drugs; Z95.5 Presence of coronary angioplasty implant and graft; Z90.49 Acquired absence of other specified parts of digestive tract; Z87.891 Personal history of nicotine dependence; I25.2 Old myocardial infarction
CPT/HCPCS: 36415; 36416; 70450; 70496; 70498; 70551; 71045; 80048; 80053; 80061; 82550; 83036; 84484; 85025; 85610; 85730; 87635; 93005; 93306; 94640; 94760; 96372; 96374; G0378; J1650; J1815; J2060; J7512; J7620; Q0162; Q0169; Q9967; U0003; U0005

== ENCOUNTER 2020-06-19 14:16 | Emergency (ER) | payer MEDICARE ==
[2020-06-19 14:55] LABS: #Basophils 0.1 thou/uL (0.0-0.2); #Eosinphils 0.7 thou/uL (0.0-0.7); #Lymphocytes 1.7 thou/uL (1.20-3.40); #Monocytes 0.7 thou/uL (0.11-0.59); #Neutrophils 3.1 thou/uL (1.40-6.50); %Basophils 0.8 % (0.0-1.0); %Eosinophils 10.5 % (0.0-10.0); %Lymphocytes 27.4 % (21.0-51.0); %Monocytes 11.5 % (0.0-10.0); %Neutrophils 49.9 % (42.0-75.0); Mean Corpuscular HGB CONC 33.7 g/dL (32.0-36.0); Mean Corpuscular Hemoglobin 31.3 pg (27.0-31.0); Mean Corpuscular Volume 92.9 fL (78.0-98.0); Mean Platelet Volume 8.3 fL (7.4-10.4); Platelet Count 179 thou/uL (130-400); RBC Distribution Width 13.6 % (11.5-14.5); Red Blood Cell (RBC) Count 3.83 mill/uL (4.70-6.10); White Blood Cell (WBC) Count 6.3 thou/uL (4.8-10.8)
[2020-06-19 15:18] LABS: Acetaminophen Less than 6.0 mcg/mL (10.0-30.0); Alcohol Less than 10 mg/dL (Less than 10); CK (CPK) 62 U/L (30-200); Salicylate Less than 8.0 mg/dL (15.0-30.0)
[2020-06-19 15:19] LABS: ALT (SGPT) 13 U/L (8-55); AST (SGOT) 19 U/L (5-34); Albumin 3.7 g/dL (3.5-5.0); Alkaline Phosphatase 94 U/L (40-110); Anion Gap 14 mmol/L (10-20); BUN (Urea Nitrogen) 28 mg/dL (8.4-25.7); Bilirubin, Total 0.4 mg/dL (0.2-1.2); Calc. Creatinine Clearance 0 mL/min (70-130); Calcium 9.4 mg/dL (7.8-10.44); Carbon Dioxide 26 mmol/L (22-29); Chloride 106 mmol/L (98-107); Globulin 2.8 g/dL (2.4-3.5); Glucose 137 mg/dL (70-105); Lipase 51 U/L (8-78); Potassium 4.3 mmol/L (3.5-5.1); Protein, Total 6.5 g/dL (6.0-8.3); Sodium 142 mmol/L (136-145)
[2020-06-19 15:37] LABS: Bacteria/HPF None Seen HPF (None Seen); Bilirubin Negative (Negative); Blood, Urine Negative (Negative); Clarity Clear (Clear); Glucose, Urine (Dipstick) Normal (Negative); Ketone, Urine Negative (Negative); Leukocyte Negative Leu/uL (Negative); Nitrite Negative (Negative); Protein, Urine (Dipstick) 30 mg/dL (Neg-Trace); RBC/HPF 0-3 HPF (0-3); Squamous Epithelial None Seen HPF (0-3); WBC/HPF 0-3 HPF (0-3); pH, Urine 6.5 (5.0-9.0)
[2020-06-19 15:59] LABS: Amphetamine Not Detected (NotDetected); Barbiturates Screen Not Detected (NotDetected); Benzodiazepine Screen Not Detected (NotDetected); Cocaine Metabolite Screen Not Detected (NotDetected); Medtox Control Line Valid? VALID (VALID); Medtox Reader # READER 4; Methadone Not Detected (NotDetected); Methamphetamine Not Detected (NotDetected); Opiate Screen Not Detected (NotDetected); Oxycodone Screen Not Detected (NotDetected); Phencyclidine (PCP) Not Detected (NotDetected); THC/Cannabinoid Screen Not Detected (NotDetected); Tricyclic Screen Not Detected (NotDetected)
== END 2020-06-19 20:48 ==
LOC: ERS 14:16
DX: F31.9 Bipolar disorder, unspecified (principal); E78.5 Hyperlipidemia, unspecified; I25.2 Old myocardial infarction; I10 Essential (primary) hypertension; K21.9 Gastro-esophageal reflux disease without esophagitis; E11.9 Type 2 diabetes mellitus without complications; J44.9 Chronic obstructive pulmonary disease, unspecified; Z86.73 Personal history of transient ischemic attack (TIA), and cerebral infarction without residual deficits; Z87.891 Personal history of nicotine dependence; Z79.82 Long term (current) use of aspirin; Z79.899 Other long term (current) drug therapy
CPT/HCPCS: 36415; 51701; 70450; 71045; 80053; 80164; 80306; 80307; 81003; 81015; 82140; 82550; 83690; 84484; 85025; 93005

== ENCOUNTER 2021-08-07 20:24 | Emergency (ER) | payer MEDICARE ==
[2021-08-07 21:29] LABS: #Eosinphils 0.1 thou/uL (0.0-0.7); #Lymphocytes 0.7 thou/uL (1.20-3.40); #Monocytes 0.7 thou/uL (0.11-0.59); #Neutrophils 7.9 thou/uL (1.40-6.50); %Eosinophils 0.7 % (0.0-10.0); %Lymphocytes 7.2 % (21.0-51.0); %Monocytes 7.8 % (0.0-10.0); %Neutrophils 84.4 % (42.0-75.0); Hemoglobin 11.7 g/dL (14.0-18.0); Mean Corpuscular Hemoglobin 30.7 pg (27.0-31.0); Mean Corpuscular Volume 92.8 fL (78.0-98.0); Mean Platelet Volume 8.3 fL (7.4-10.4); Platelet Count 207 thou/uL (130-400); RBC Distribution Width 13.8 % (11.5-14.5); White Blood Cell (WBC) Count 9.3 thou/uL (4.8-10.8)
[2021-08-07 21:38] LABS: Actual Bicarbonate (HCO3v) 25 mEq/L (22-28); Analyzer IN Cardio ER; Base Excess -0.9 mEq/L (-2.0 to +3.0); Calcium, Ionized (venous) 1.16 mmol/L (1.16-1.32); Chloride (VBG) 99 mmol/L (98-106); Hemoglobin (Hb) 12.5 g/dL (13.1-17.2); Sodium 134.2 mmol/L (133-146); pH (venous) 7.37 (7.32-7.43)
[2021-08-07 21:51] LABS: ALT (SGPT) 24 U/L (8-55); AST (SGOT) 19 U/L (5-34); Albumin 3.9 g/dL (3.4-4.8); Alkaline Phosphatase 120 U/L (40-110); Anion Gap 17 mmol/L (10-20); BUN (Urea Nitrogen) 69 mg/dL (8.4-25.7); Bilirubin, Total 0.3 mg/dL (0.2-1.2); Calc. Creatinine Clearance 0 mL/min (70-130); Calcium 9.1 mg/dL (7.8-10.44); Carbon Dioxide 24 mmol/L (23-31); Chloride 101 mmol/L (98-107); Globulin 2.9 g/dL (2.4-3.5); Glucose 180 mg/dL (80-115); Magnesium 2.2 mg/dL (1.6-2.6); Potassium 5.5 mmol/L (3.5-5.1); Protein, Total 6.8 g/dL (5.8-8.1); Sodium 136 mmol/L (136-145)
== END 2021-08-08 00:58 ==
LOC: ERS 20:24
DX: J44.1 Chronic obstructive pulmonary disease with (acute) exacerbation (principal); D64.9 Anemia, unspecified; N28.9 Disorder of kidney and ureter, unspecified; I25.2 Old myocardial infarction; E78.5 Hyperlipidemia, unspecified; I10 Essential (primary) hypertension; K21.9 Gastro-esophageal reflux disease without esophagitis; E11.9 Type 2 diabetes mellitus without complications; Z86.73 Personal history of transient ischemic attack (TIA), and cerebral infarction without residual deficits; Z87.891 Personal history of nicotine dependence
CPT/HCPCS: 36415; 71045; 80053; 82805; 83735; 84484; 85025; 93005

== ENCOUNTER 2022-10-29 13:38 | Inpatient (IN) | payer MEDICARE, MEDICAID ==
[2022-10-29 14:24] LABS: #Eosinphils 0.6 thou/uL (0.0-0.7); #Monocytes 0.8 thou/uL (0.11-0.59); #Neutrophils 3.8 thou/uL (1.40-6.50); %Basophils 0.6 % (0.0-1.0); %Eosinophils 9.4 % (0.0-10.0); %Lymphocytes 22.4 % (21.0-51.0); %Monocytes 11.9 % (0.0-10.0); %Neutrophils 55.6 % (42.0-75.0); Hematocrit 32.3 % (42.0-52.0); Hemoglobin 10.6 g/dL (14.0-18.0); Mean Corpuscular HGB CONC 32.8 g/dL (32.0-36.0); Mean Corpuscular Hemoglobin 29.7 pg (27.0-31.0); Mean Corpuscular Volume 90.5 fl (78.0-98.0); Mean Platelet Volume 11.4 fL (7.4-10.4); Platelet Count 156 10x3/uL (130-400); RBC Distribution Width 14.6 % (11.5-14.5); Red Blood Cell (RBC) Count 3.57 mill/uL (4.70-6.10); White Blood Cell (WBC) Count 6.8 10x3/uL (4.8-10.8)
[2022-10-29] MEDS ORDERED: Morphine 4 MG/ML VIAL ONE (14:31)
[2022-10-29 14:45] LABS: Anion Gap 12 mmol/L (10-20); BUN (Urea Nitrogen) 46 mg/dL (8.4-25.7); Calc. Creatinine Clearance 0 mL/min (70-130); Calcium 10.5 mg/dL (7.8-10.44); Carbon Dioxide 30 mmol/L (23-31); Chloride 103 mmol/L (98-107); Estimated GFR 18; Glucose 93 mg/dL (80-115); Potassium 4.6 mmol/L (3.5-5.1); Sodium 140 mmol/L (136-145)
[2022-10-29] MEDS ORDERED: Ipratropium/Albuterol 3 ML NEB ONE (16:28)
[2022-10-29] MEDS ORDERED: Ondansetron ODT 4 MG TAB PO PRN (17:18)
[2022-10-29] MEDS ORDERED: Calcium Carbonate 500 MG ChewTAB PO PRN (17:18)
[2022-10-29] MEDS ORDERED: Ondansetron PF 4 MG/2 ML Vial IVP PRN (17:18)
[2022-10-29] MEDS ORDERED: HumaLOG 300 UNITS/3 ML VIAL SC PRN ×2 (17:18)
[2022-10-29] MEDS ORDERED: Dextrose 50% Abboject 50 ML SYRINGE SLOW IVP PRN (17:18)
[2022-10-29] MEDS ORDERED: Dextrose 5% in Water 1,000 ML IV PRN (17:18)
[2022-10-29] MEDS ORDERED: Senokot S 8.6-50 MG TAB PO PRN (17:18)
[2022-10-29] MEDS ORDERED: Glucagon 1 MG/ML KIT IM PRN (17:18)
[2022-10-29 18:46] LABS: Magnesium 2.3 mg/dL (1.6-2.6); Phosphorus 4.4 mg/dL (2.3-4.7)
[2022-10-29] MEDS ORDERED: hydrALAZINE 25 MG TAB PO SCH (19:15)
[2022-10-29] MEDS ORDERED: Mag-Al 1200 mg/1200 mg/30 ML UDCUP PO PRN (20:36)
[2022-10-29] MEDS: hydrALAZINE 25 MG TAB PO SCH (21:01)
[2022-10-29] MEDS: Sodium Chloride 0.9% 1,000 ML IV SCH (21:01)
[2022-10-29] MEDS: Ipratropium/Albuterol 3 ML NEB NEB PRN (21:01)
[2022-10-29] MEDS: Montelukast Sodium 10 mg Tablet PO SCH (21:01)
[2022-10-29 22:34] VITALS: BMI 30.2
[2022-10-29] MEDS ORDERED: Albuterol 200 PUFF (6.7GM INHALER) INH PRN (23:18)
[2022-10-29] MEDS: Acetaminophen 325 MG TAB PO PRN (23:37)
[2022-10-30] MEDS: Ipratropium/Albuterol 3 ML NEB NEB PRN ×3 (04:00→19:25)
[2022-10-30] MEDS: Sodium Chloride 0.9% 1,000 ML IV SCH ×4 (05:07→22:59)
[2022-10-30 05:58] LABS: #Eosinphils 0.8 thou/uL (0.0-0.7); #Monocytes 0.7 thou/uL (0.11-0.59); #Neutrophils 2.6 thou/uL (1.40-6.50); %Basophils 0.5 % (0.0-1.0); %Eosinophils 13.7 % (0.0-10.0); %Lymphocytes 27.9 % (21.0-51.0); %Monocytes 12.1 % (0.0-10.0); %Neutrophils 45.6 % (42.0-75.0); Hematocrit 31.8 % (42.0-52.0); Hemoglobin 10.4 g/dL (14.0-18.0); Mean Corpuscular HGB CONC 32.7 g/dL (32.0-36.0); Mean Corpuscular Volume 91.6 fl (78.0-98.0); Mean Platelet Volume 11.2 fL (7.4-10.4); Platelet Count 134 10x3/uL (130-400); RBC Distribution Width 14.7 % (11.5-14.5); Red Blood Cell (RBC) Count 3.47 mill/uL (4.70-6.10); White Blood Cell (WBC) Count 5.7 10x3/uL (4.8-10.8)
[2022-10-30 06:36] LABS: ALT (SGPT) 14 U/L (8-55); AST (SGOT) 19 U/L (5-34); Albumin 3.7 g/dL (3.4-4.8); Alkaline Phosphatase 70 U/L (40-110); Anion Gap 13 mmol/L (10-20); BUN (Urea Nitrogen) 43 mg/dL (8.4-25.7); Bilirubin, Total 0.3 mg/dL (0.2-1.2); Calc. Creatinine Clearance 31 mL/min (70-130); Calcium 9.6 mg/dL (7.8-10.44); Carbon Dioxide 24 mmol/L (23-31); Chloride 107 mmol/L (98-107); Estimated GFR 21; Globulin 2.8 g/dL (2.4-3.5); Glucose 78 mg/dL (80-115); Potassium 4.6 mmol/L (3.5-5.1); Protein, Total 6.5 g/dL (5.8-8.1); Sodium 139 mmol/L (136-145)
[2022-10-30] MEDS: Valproic Acid 250 MG CAP PO SCH ×2 (08:47→19:54)
[2022-10-30] MEDS: Sertraline 25 MG TAB PO SCH (08:47)
[2022-10-30] MEDS: Tamsulosin HCl 0.4 MG CAP PO SCH (08:47)
[2022-10-30] MEDS: hydrALAZINE 25 MG TAB PO SCH ×3 (08:47→19:55)
[2022-10-30] MEDS: Multivitamin W/ Minerals 1 TAB PO SCH (08:47)
[2022-10-30] MEDS: Amlodipine 10 MG TAB PO SCH (08:47)
[2022-10-30] MEDS: hydrOXYzine Pamoate 25 mg Capsule PO SCH (08:47)
[2022-10-30] MEDS: Famotidine 20 MG TAB PO SCH (08:48)
[2022-10-30] MEDS: Aspirin 81 mg Enteric Coated Tablet PO SCH (08:48)
[2022-10-30] MEDS: risperiDONE 1 MG TAB PO SCH ×3 (08:48→19:56)
[2022-10-30] MEDS ORDERED: Non-Formulary Item 1 EACH (Tiotropium Bromide 4 GM Inhaler) IH SCH (09:00)
[2022-10-30] MEDS ORDERED: Aspirin 325 mg Enteric Coated Tablet PO SCH (09:00)
[2022-10-30] MEDS: Acetaminophen 325 MG TAB PO PRN ×2 (09:55→22:59)
[2022-10-30] MEDS: Montelukast Sodium 10 mg Tablet PO SCH (19:55)
[2022-10-30] MEDS ORDERED: methylPREDNISolone Sod Succ 40 MG VIAL IVP SCH (20:30)
[2022-10-30] MEDS ORDERED: Scopolamine 1.5 mg/72 hour Patch TD SCH (21:00)
[2022-10-30] MEDS ORDERED: Atorvastatin Calcium 40 MG TAB PO SCH (21:00)
[2022-10-31] MEDS ORDERED: hydrALAZINE 25 MG TAB PO SCH (01:15)
[2022-10-31] MEDS: Ipratropium/Albuterol 3 ML NEB NEB PRN ×2 (02:43→15:38)
[2022-10-31] MEDS ORDERED: Acetaminophen 500 MG TAB PO SCH (03:00)
[2022-10-31 06:51] LABS: Anion Gap 8 mmol/L (10-20); BUN (Urea Nitrogen) 36 mg/dL (8.4-25.7); Calc. Creatinine Clearance 35 mL/min (70-130); Calcium 9.1 mg/dL (7.8-10.44); Carbon Dioxide 19 mmol/L (23-31); Chloride 110 mmol/L (98-107); Estimated GFR 25; Glucose 108 mg/dL (80-115); Sodium 132 mmol/L (136-145)
[2022-10-31] MEDS: Valproic Acid 250 MG CAP PO SCH (08:55)
[2022-10-31] MEDS: Multivitamin W/ Minerals 1 TAB PO SCH (08:55)
[2022-10-31] MEDS: risperiDONE 1 MG TAB PO SCH ×2 (08:55→15:54)
[2022-10-31] MEDS: hydrALAZINE 25 MG TAB PO SCH ×2 (08:55→15:54)
[2022-10-31] MEDS: Tamsulosin HCl 0.4 MG CAP PO SCH (08:56)
[2022-10-31] MEDS: Famotidine 20 MG TAB PO SCH (08:56)
[2022-10-31] MEDS: Aspirin 81 mg Enteric Coated Tablet PO SCH (08:56)
[2022-10-31] MEDS: Sertraline 25 MG TAB PO SCH (08:56)
[2022-10-31] MEDS: hydrOXYzine Pamoate 25 mg Capsule PO SCH (08:56)
[2022-10-31] MEDS: Amlodipine 10 MG TAB PO SCH (08:56)
[2022-10-31] MEDS: Sodium Chloride 0.9% 1,000 ML IV SCH (10:30)
[2022-10-31 13:04] VITALS: TEMP 97.6
[2022-10-31 16:28] VITALS: BP 150/97
== END 2022-10-31 16:46 | DRG 552 ==
LOC: ERS 13:38 → T4-A 16:23 → OBSVTOIN 10-31 14:46
PROVIDERS: ADMIT Internal Medicine; ATTEND Internal Medicine
DX: M51.36 Other intervertebral disc degeneration, lumbar region (principal); N17.9 Acute kidney failure, unspecified; I67.82 Cerebral ischemia; I69.351 Hemiplegia and hemiparesis following cerebral infarction affecting right dominant side; M50.30 Other cervical disc degeneration, unspecified cervical region; M47.812 Spondylosis without myelopathy or radiculopathy, cervical region; M47.814 Spondylosis without myelopathy or radiculopathy, thoracic region; M48.061 Spinal stenosis, lumbar region without neurogenic claudication; M48.07 Spinal stenosis, lumbosacral region; I12.9 Hypertensive chronic kidney disease with stage 1 through stage 4 chronic kidney disease, or unspecified chronic kidney disease; N18.30 Chronic kidney disease, stage 3 unspecified; D63.1 Anemia in chronic kidney disease; E78.5 Hyperlipidemia, unspecified; I25.10 Atherosclerotic heart disease of native coronary artery without angina pectoris; I25.2 Old myocardial infarction; K21.9 Gastro-esophageal reflux disease without esophagitis; E11.22 Type 2 diabetes mellitus with diabetic chronic kidney disease; J44.9 Chronic obstructive pulmonary disease, unspecified; W18.30XA Fall on same level, unspecified, initial encounter; Z98.1 Arthrodesis status; Z79.82 Long term (current) use of aspirin; Z79.899 Other long term (current) drug therapy; Z87.891 Personal history of nicotine dependence
CPT/HCPCS: 36415; 36416; 70450; 71045; 72125; 72128; 72131; 72170; 80048; 80053; 83735; 84100; 85025; 94640; 96361; 96374; 96375; G0378; J2270; J2920; J7050; J7620; Q0177

== ENCOUNTER 2023-12-17 19:47 | Inpatient (IN) | payer MEDICARE, MEDICAID ==
[~2023-12-17 19:47] MED LIST changes: -Iopamidol-370 76% 500 ML 1 ML ONE; +Iopamidol-370 76% 500 ML MDV (1 ML CHARGE) ONE
[2023-12-17 20:12] LABS: Analyzer IN Cardio ER; Base Excess (BEa) 0.9 mEq/L (-2.0 to +3.0); CO2 Tension 37.7 mmHg (35.0-45.0); Calcium, Ionized (arterial) 1.24 mmol/L (1.12-1.30); Carboxyhemoglobin (COHb) 0.3 gm% (0.0-3.0); Hematocrit-ABG 35 % (42.0-52.0); Hemoglobin (Hb) 11.8 g/dL (14.0-18.0); O2 Tension (PaO2), arterial 131.5 mmHg (> 80.0); Potassium - ABG Lab 3.79 mmol/L (3.70-5.30); pH, Arterial 7.439 (7.35-7.45)
[2023-12-17 20:15] LABS: ALV-art Gradient 177.875 mmHg (0-20); Puncture Site Left Brachial artery
[2023-12-17 20:44] LABS: #Basophils 0.03 10x3/uL (0.0-0.2); %Basophils 0.2 % (0.0-1.0); %Eosinophils 0.6 % (0.0-10.0); %Monocytes 7.9 % (0.0-10.0); %Neutrophils 83.7 % (42.0-75.0); Hematocrit 32.9 % (42.0-52.0); Hemoglobin 10.7 g/dL (14.0-18.0); Mean Corpuscular HGB CONC 32.5 g/dL (32.0-36.0); Mean Corpuscular Volume 83.1 fL (78.0-98.0); Mean Platelet Volume 9.9 fL (7.4-10.4); Platelet Count 137 10x3/uL (130-400); RBC Distribution Width 17.4 % (11.5-14.5); Red Blood Cell (RBC) Count 3.96 mill/uL (4.70-6.10)
[2023-12-17 20:57] LABS: ALT (SGPT) 9 U/L (8-55); AST (SGOT) 21 U/L (5-34); Albumin 2.8 g/dL (3.4-4.8); Alkaline Phosphatase 87 U/L (40-110); Anion Gap 15 mmol/L (10-20); BUN (Urea Nitrogen) 42 mg/dL (8.4-25.7); Bilirubin, Total 0.4 mg/dL (0.2-1.2); Calc. Creatinine Clearance 0 mL/min (70-130); Calcium 9.4 mg/dL (7.8-10.44); Carbon Dioxide 23 mmol/L (23-31); Chloride 105 mmol/L (98-107); Estimated GFR 23; Globulin 4.6 g/dL (2.4-3.5); Glucose 139 mg/dL (80-115); Lipase 22 U/L (8-78); Magnesium 1.9 mg/dL (1.6-2.6); Potassium 3.8 mmol/L (3.5-5.1); Protein, Total 7.4 g/dL (5.8-8.1); Sodium 139 mmol/L (136-145)
[2023-12-17 20:58] LABS: Acetaminophen Less than 10 mcg/mL (Less than 10); Alcohol Less than 10.0 mg/dL (Less than 10); Salicylate Less than 8.0 mg/dL (Less than 8.0)
[2023-12-17 21:02] LABS: Troponin I 0.017 ng/mL (< 0.028)
[2023-12-17] MEDS ORDERED: Azithromycin 500 MG VIAL ONE (21:25)
[2023-12-17] MEDS ORDERED: Sodium Chloride 0.9% 100 ML ONE (21:25)
[2023-12-17] MEDS ORDERED: Cefepime 1 GM VIAL ONE (21:25)
[2023-12-17] MEDS ORDERED: Vancomycin 1 GM/200 ML (FROZEN) BAG ONE (21:26)
[2023-12-17] MEDS ORDERED: Cefepime 2 GM VIAL ONE (21:26)
[2023-12-17 21:38] LABS: Influenza A by NAA Not Detected (NotDetected); Influenza B by NAA Not Detected (NotDetected); SARS-CoV-2 NAA Rapid Test Not Detected (NotDetected)
[2023-12-17 21:42] LABS: Amphetamine Not Detected (NotDetected); Barbiturates Screen Not Detected (NotDetected); Benzodiazepine Screen Not Detected (NotDetected); Cocaine Metabolite Screen Not Detected (NotDetected); Methadone Not Detected (NotDetected); Methamphetamine Not Detected (NotDetected); Opiate Screen Not Detected (NotDetected); Oxycodone Screen Not Detected (NotDetected); Phencyclidine (PCP) Not Detected (NotDetected); THC/Cannabinoid Screen Not Detected (NotDetected); Tricyclic Screen Not Detected (NotDetected)
[2023-12-17 21:44] LABS: Bilirubin Negative (Negative); Blood, Urine Trace (Negative); CAUTI Indications for Culture Dysuria,urgency,freq; Clarity Turbid (Clear); Glucose, Urine (Dipstick) 100 mg/dL (Negative); Ketone, Urine Negative (Negative); Leukocyte 500 Leu/uL (Negative); Nitrite 1+ (Negative); Protein, Urine (Dipstick) 200 mg/dL (Neg-Trace); Specific Gravity, Urine 1.013 (1.002-1.036); Squamous Epithelial None Seen HPF (0-3); Urobilinogen Normal mg/dL (Less than 2)
[2023-12-17 22:05] LABS: Bacteria/HPF 4+ HPF (None Seen)
[2023-12-17 22:08] LABS: WBC/HPF 21-50 HPF (0-3)
[2023-12-17 22:10] LABS: Urine Culture Reflex Yes Yes
[2023-12-18] MEDS ORDERED: Acetaminophen 325 MG TAB PO PRN (01:16)
[2023-12-18] MEDS ORDERED: Ondansetron ODT 4 MG TAB PO PRN (01:16)
[2023-12-18] MEDS ORDERED: Ondansetron PF 4 MG/2 ML Vial IVP PRN (01:16)
[2023-12-18] MEDS ORDERED: Ipratropium/Albuterol 3 ML NEB NEB PRN (01:34)
[2023-12-18] MEDS: Dextrose 5%-Lactated Ringers 1,000 ML IV SCH ×2 (02:54→13:17)
[2023-12-18] MEDS ORDERED: Insulin Lispro 100 UNIT/ML 10 ML VIAL SC PRN ×2 (03:16)
[2023-12-18] MEDS ORDERED: Glucagon 1 MG/ML KIT IM PRN (03:16)
[2023-12-18] MEDS ORDERED: Dextrose 50% Abboject 50 ML SYRINGE SLOW IVP PRN (03:16)
[2023-12-18] MEDS ORDERED: Dextrose 5% in Water 1,000 ML IV PRN (03:16)
[2023-12-18 05:36] LABS: #Basophils 0.03 10x3/uL (0.0-0.2); %Basophils 0.2 % (0.0-1.0); %Lymphocytes 12.4 % (21.0-51.0); %Monocytes 8.8 % (0.0-10.0); %Neutrophils 76.8 % (42.0-75.0); Hematocrit 29.8 % (42.0-52.0); Hemoglobin 9.7 g/dL (14.0-18.0); Mean Corpuscular HGB CONC 32.6 g/dL (32.0-36.0); Mean Corpuscular Hemoglobin 26.4 pg (27.0-31.0); Mean Corpuscular Volume 81.2 fL (78.0-98.0); Mean Platelet Volume 10.5 fL (7.4-10.4); Platelet Count 132 10x3/uL (130-400); RBC Distribution Width 17.5 % (11.5-14.5); Red Blood Cell (RBC) Count 3.67 mill/uL (4.70-6.10)
[2023-12-18 05:53] LABS: Anion Gap 13 mmol/L (10-20); BUN (Urea Nitrogen) 42 mg/dL (8.4-25.7); Calc. Creatinine Clearance 34 mL/min (70-130); Calcium 8.9 mg/dL (7.8-10.44); Carbon Dioxide 26 mmol/L (23-31); Chloride 106 mmol/L (98-107); Estimated GFR 25; Glucose 98 mg/dL (80-115); Potassium 3.6 mmol/L (3.5-5.1); Sodium 141 mmol/L (136-145)
[2023-12-18] MEDS: Ipratropium/Albuterol 3 ML NEB NEB SCH (07:04)
[2023-12-18] MEDS: Heparin 5,000 UNITS/ML VIAL SC SCH (10:14)
[2023-12-18] MEDS: Doxycycline 100 MG in Sodium Chloride 0.9% 100 ML IVPB SCH (10:14)
[2023-12-18] MEDS: Cefepime 1 GM in Sodium Chloride 0.9% 100 ML IVPB SCH (10:14)
[2023-12-18] MEDS: Famotidine/PF 20 mg/2ml Vial SLOW IVP SCH (10:15)
[2023-12-18] MEDS: Famotidine 20 MG TAB PO SCH (10:16)
[2023-12-18] MEDS ORDERED: Vancomycin Dose by Levels Sliding Scale (Wt 71-99) FS SCH (15:30)
[2023-12-18] MEDS: Vancomycin (BATCH) 1.25 GM in Premix 1 BAG IVPB SCH (15:59)
[2023-12-18] MEDS: Vancomycin 1 GM in Premix 1 BAG IVPB SCH (16:55)
[2023-12-19 05:02] LABS: #Basophils Less than 0.03 10x3/uL (0.0-0.2); %Basophils 0.2 % (0.0-1.0); %Eosinophils 3.1 % (0.0-10.0); %Lymphocytes 11.2 % (21.0-51.0); %Monocytes 9.9 % (0.0-10.0); %Neutrophils 74.9 % (42.0-75.0); Hematocrit 29.4 % (42.0-52.0); Hemoglobin 9.1 g/dL (14.0-18.0); Mean Corpuscular Hemoglobin 26.1 pg (27.0-31.0); Mean Corpuscular Volume 84.5 fL (78.0-98.0); Mean Platelet Volume 10.1 fL (7.4-10.4); Platelet Count 136 10x3/uL (130-400); RBC Distribution Width 17.4 % (11.5-14.5); Red Blood Cell (RBC) Count 3.48 mill/uL (4.70-6.10)
[2023-12-19 05:16] LABS: Anion Gap 13 mmol/L (10-20); BUN (Urea Nitrogen) 35 mg/dL (8.4-25.7); Calc. Creatinine Clearance 42 mL/min (70-130); Calcium 9.1 mg/dL (7.8-10.44); Carbon Dioxide 23 mmol/L (23-31); Chloride 110 mmol/L (98-107); Estimated GFR 32; Glucose 81 mg/dL (80-115); Potassium 3.4 mmol/L (3.5-5.1); Sodium 143 mmol/L (136-145)
[2023-12-19] MEDS: Cefepime 2 GM in Sodium Chloride 0.9% 100 ML IVPB SCH (20:15)
[2023-12-20] MEDS: hydrALAZINE 20 MG/ML VIAL SLOW IVP PRN (01:07)
[2023-12-20 07:47] LABS: #Basophils 0.06 10x3/uL (0.0-0.2); %Basophils 0.6 % (0.0-1.0); %Eosinophils 1.4 % (0.0-10.0); %Lymphocytes 16.8 % (21.0-51.0); %Monocytes 12.3 % (0.0-10.0); %Neutrophils 67.6 % (42.0-75.0); Hematocrit 33.4 % (42.0-52.0); Hemoglobin 10.9 g/dL (14.0-18.0); Mean Corpuscular HGB CONC 32.6 g/dL (32.0-36.0); Mean Corpuscular Hemoglobin 26.1 pg (27.0-31.0); Mean Corpuscular Volume 79.9 fL (78.0-98.0); Mean Platelet Volume 10.7 fL (7.4-10.4); Platelet Count 215 10x3/uL (130-400); RBC Distribution Width 17.2 % (11.5-14.5); Red Blood Cell (RBC) Count 4.18 mill/uL (4.70-6.10)
[2023-12-20 08:03] LABS: Anion Gap 17 mmol/L (10-20); BUN (Urea Nitrogen) 28 mg/dL (8.4-25.7); Calc. Creatinine Clearance 45 mL/min (70-130); Calcium 9.6 mg/dL (7.8-10.44); Carbon Dioxide 21 mmol/L (23-31); Chloride 109 mmol/L (98-107); Estimated GFR 36; Glucose 97 mg/dL (80-115); Potassium 3.5 mmol/L (3.5-5.1); Sodium 143 mmol/L (136-145)
[2023-12-20] MEDS: Doxycycline 100 MG in Sodium Chloride 0.9% 100 ML IVPB SCH (11:24)
[2023-12-20] MEDS: Dextrose 5%-Lactated Ringers 1,000 ML IV SCH (17:48)
[2023-12-20] MEDS: Fluticasone Propionate Nasal Spray 16 gm Bottle NASAL SCH (20:26)
[2023-12-21 06:55] LABS: #Basophils 0.08 10x3/uL (0.0-0.2); %Basophils 0.9 % (0.0-1.0); %Eosinophils 0.4 % (0.0-10.0); %Lymphocytes 16.3 % (21.0-51.0); %Neutrophils 67.8 % (42.0-75.0); Hemoglobin 10.5 g/dL (14.0-18.0); Mean Corpuscular HGB CONC 32.8 g/dL (32.0-36.0); Mean Corpuscular Hemoglobin 26.1 pg (27.0-31.0); Mean Corpuscular Volume 79.6 fL (78.0-98.0); Mean Platelet Volume 9.8 fL (7.4-10.4); Platelet Count 200 10x3/uL (130-400); Red Blood Cell (RBC) Count 4.02 mill/uL (4.70-6.10)
[2023-12-21 07:28] LABS: Anion Gap 15 mmol/L (10-20); BUN (Urea Nitrogen) 28 mg/dL (8.4-25.7); Calc. Creatinine Clearance 43 mL/min (70-130); Calcium 9.4 mg/dL (7.8-10.44); Carbon Dioxide 19 mmol/L (23-31); Chloride 111 mmol/L (98-107); Estimated GFR 34; Glucose 90 mg/dL (80-115); Potassium 3.2 mmol/L (3.5-5.1); Sodium 142 mmol/L (136-145)
[2023-12-21] MEDS: Acetaminophen 650 MG Suppository PR PRN (12:51)
[2023-12-21] MEDS: Potassium Chloride 20 MEQ in Premix 1 BAG IVPB SCH (23:16)
[2023-12-22 04:27] LABS: #Basophils 0.12 10x3/uL (0.0-0.2); #Eosinphils Less than 0.03 10x3/uL (0.0-0.7); %Basophils 1.1 % (0.0-1.0); %Eosinophils 0.2 % (0.0-10.0); %Lymphocytes 15.9 % (21.0-51.0); %Monocytes 11.5 % (0.0-10.0); %Neutrophils 66.6 % (42.0-75.0); Hematocrit 34.1 % (42.0-52.0); Hemoglobin 10.8 g/dL (14.0-18.0); Mean Corpuscular HGB CONC 31.7 g/dL (32.0-36.0); Mean Corpuscular Volume 82.2 fL (78.0-98.0); Mean Platelet Volume 9.8 fL (7.4-10.4); Platelet Count 239 10x3/uL (130-400); RBC Distribution Width 17.4 % (11.5-14.5); Red Blood Cell (RBC) Count 4.15 mill/uL (4.70-6.10)
[2023-12-22 04:43] LABS: Anion Gap 17 mmol/L (10-20); BUN (Urea Nitrogen) 32 mg/dL (8.4-25.7); Calc. Creatinine Clearance 42 mL/min (70-130); Calcium 9.7 mg/dL (7.8-10.44); Carbon Dioxide 16 mmol/L (23-31); Chloride 113 mmol/L (98-107); Estimated GFR 33; Glucose 103 mg/dL (80-115); Magnesium 1.7 mg/dL (1.6-2.6); Potassium 3.3 mmol/L (3.5-5.1); Sodium 143 mmol/L (136-145)
[2023-12-22 04:49] LABS: Phosphorus 2.1 mg/dL (2.3-4.7)
[2023-12-22 07:58] LABS: Anion Gap 16 mmol/L (10-20); BUN (Urea Nitrogen) 34 mg/dL (8.4-25.7); Calc. Creatinine Clearance 40 mL/min (70-130); Calcium 9.7 mg/dL (7.8-10.44); Carbon Dioxide 17 mmol/L (23-31); Chloride 116 mmol/L (98-107); Estimated GFR 31; Glucose 114 mg/dL (80-115); Potassium 3.5 mmol/L (3.5-5.1); Sodium 145 mmol/L (136-145)
[2023-12-23 04:13] VITALS: BMI 30.9
[2023-12-23 04:47] LABS: #Basophils 0.13 10x3/uL (0.0-0.2); %Eosinophils 0.3 % (0.0-10.0); %Lymphocytes 19.5 % (21.0-51.0); %Monocytes 13.4 % (0.0-10.0); %Neutrophils 62.9 % (42.0-75.0); Hematocrit 37.6 % (42.0-52.0); Hemoglobin 12.2 g/dL (14.0-18.0); Mean Corpuscular HGB CONC 32.4 g/dL (32.0-36.0); Mean Corpuscular Hemoglobin 26.5 pg (27.0-31.0); Mean Corpuscular Volume 81.7 fL (78.0-98.0); Mean Platelet Volume 9.5 fL (7.4-10.4); Platelet Count 312 10x3/uL (130-400); RBC Distribution Width 18.3 % (11.5-14.5)
[2023-12-23 05:45] LABS: Anion Gap 17 mmol/L (10-20); BUN (Urea Nitrogen) 42 mg/dL (8.4-25.7); Calc. Creatinine Clearance 38 mL/min (70-130); Calcium 9.9 mg/dL (7.8-10.44); Carbon Dioxide 16 mmol/L (23-31); Chloride 118 mmol/L (98-107); Estimated GFR 29; Glucose 106 mg/dL (80-115); Potassium 3.6 mmol/L (3.5-5.1); Sodium 147 mmol/L (136-145)
[2023-12-23] MEDS: Labetalol HCl 100 MG/20 ML VIAL SLOW IVP PRN (10:16)
[2023-12-24 06:25] LABS: Anion Gap 13 mmol/L (10-20); BUN (Urea Nitrogen) 54 mg/dL (8.4-25.7); Calc. Creatinine Clearance 37 mL/min (70-130); Calcium 9.8 mg/dL (7.8-10.44); Carbon Dioxide 17 mmol/L (23-31); Chloride 122 mmol/L (98-107); Estimated GFR 28; Glucose 84 mg/dL (80-115); Potassium 3.4 mmol/L (3.5-5.1); Sodium 149 mmol/L (136-145)
[2023-12-24 06:30] LABS: #Basophils 0.11 10x3/uL (0.0-0.2); %Basophils 0.9 % (0.0-1.0); %Lymphocytes 20.6 % (21.0-51.0); %Neutrophils 61.8 % (42.0-75.0); Hematocrit 39.5 % (42.0-52.0); Hemoglobin 12.6 g/dL (14.0-18.0); Mean Corpuscular HGB CONC 31.9 g/dL (32.0-36.0); Mean Corpuscular Volume 81.6 fL (78.0-98.0); Mean Platelet Volume 9.8 fL (7.4-10.4); Platelet Count 304 10x3/uL (130-400); Red Blood Cell (RBC) Count 4.84 mill/uL (4.70-6.10)
[2023-12-25 09:56] LABS: #Basophils 0.06 10x3/uL (0.0-0.2); %Basophils 0.3 % (0.0-1.0); %Eosinophils 2.7 % (0.0-10.0); %Lymphocytes 14.7 % (21.0-51.0); %Monocytes 11.5 % (0.0-10.0); %Neutrophils 69.2 % (42.0-75.0); Hematocrit 40.3 % (42.0-52.0); Hemoglobin 13.1 g/dL (14.0-18.0); Mean Corpuscular HGB CONC 32.5 g/dL (32.0-36.0); Mean Corpuscular Hemoglobin 25.9 pg (27.0-31.0); Mean Corpuscular Volume 79.8 fL (78.0-98.0); Platelet Count 213 10x3/uL (130-400); RBC Distribution Width 19.8 % (11.5-14.5); Red Blood Cell (RBC) Count 5.05 mill/uL (4.70-6.10)
[2023-12-25 10:25] LABS: Anion Gap 16 mmol/L (10-20); BUN (Urea Nitrogen) 72 mg/dL (8.4-25.7); Calc. Creatinine Clearance 26 mL/min (70-130); Calcium 9.4 mg/dL (7.8-10.44); Carbon Dioxide 14 mmol/L (23-31); Chloride 125 mmol/L (98-107); Estimated GFR 18; Glucose 62 mg/dL (80-115); Potassium 3.9 mmol/L (3.5-5.1); Sodium 151 mmol/L (136-145)
[2023-12-25] MEDS: Dextrose 5%-Lactated Ringers 1,000 ML IV SCH (11:14)
[2023-12-25] MEDS: Dextrose 5% in Water 1,000 ML IV SCH (15:27)
[2023-12-26] MEDS: Dextrose 10% in Water 250 ML IVPB PRN (05:37)
[2023-12-26 08:46] LABS: #Basophils 0.08 10x3/uL (0.0-0.2); %Basophils 0.3 % (0.0-1.0); %Eosinophils 3.6 % (0.0-10.0); %Lymphocytes 12.4 % (21.0-51.0); %Monocytes 10.8 % (0.0-10.0); %Neutrophils 71.5 % (42.0-75.0); Hematocrit 35.7 % (42.0-52.0); Hemoglobin 11.9 g/dL (14.0-18.0); Mean Corpuscular HGB CONC 33.3 g/dL (32.0-36.0); Mean Corpuscular Hemoglobin 26.3 pg (27.0-31.0); Mean Corpuscular Volume 78.8 fL (78.0-98.0); Platelet Count 202 10x3/uL (130-400); RBC Distribution Width 19.6 % (11.5-14.5); Red Blood Cell (RBC) Count 4.53 mill/uL (4.70-6.10)
[2023-12-26 09:14] LABS: Anion Gap 15 mmol/L (10-20); BUN (Urea Nitrogen) 80 mg/dL (8.4-25.7); Calc. Creatinine Clearance 23 mL/min (70-130); Calcium 8.9 mg/dL (7.8-10.44); Carbon Dioxide 12 mmol/L (23-31); Chloride 122 mmol/L (98-107); Estimated GFR 15; Glucose 53 mg/dL (80-115); Potassium 3.7 mmol/L (3.5-5.1); Sodium 145 mmol/L (136-145)
[2023-12-26] MEDS: Scopolamine 1 mg/72 hour Patch TD SCH (10:29)
[2023-12-26 11:18] VITALS: BMI 32.3
[2023-12-26 13:37] VITALS: BP 146/95; TEMP 97.5
== END 2023-12-26 14:15 | DRG 871 ==
LOC: ERS 19:47 → IMCU/EMU 23:15 → T4-B 12-19 11:34
PROVIDERS: ADMIT Student in an Organized Health Care Education/Training Program; ATTEND Hospitalist
PROC: 4A033R1 Measurement of Arterial Saturation, Peripheral, Percutaneous Approach (ICD-10-PCS; principal; 2023-12-17)
PROC: 3E03329 Introduction of Other Anti-infective into Peripheral Vein, Percutaneous Approach (ICD-10-PCS; 2023-12-17)
PROC: 5A09357 Assistance with Respiratory Ventilation, Less than 24 Consecutive Hours, Continuous Positive Airway Pressure (ICD-10-PCS; 2023-12-18)
DX: A41.9 Sepsis, unspecified organism (principal); J69.0 Pneumonitis due to inhalation of food and vomit; J96.21 Acute and chronic respiratory failure with hypoxia; N39.0 Urinary tract infection, site not specified; N18.4 Chronic kidney disease, stage 4 (severe); N17.9 Acute kidney failure, unspecified; I25.10 Atherosclerotic heart disease of native coronary artery without angina pectoris; Z66 Do not resuscitate; E11.9 Type 2 diabetes mellitus without complications; J44.9 Chronic obstructive pulmonary disease, unspecified; Z79.899 Other long term (current) drug therapy; Z79.82 Long term (current) use of aspirin; Z90.49 Acquired absence of other specified parts of digestive tract; Z95.5 Presence of coronary angioplasty implant and graft; Z79.01 Long term (current) use of anticoagulants; Z51.5 Encounter for palliative care; Z86.73 Personal history of transient ischemic attack (TIA), and cerebral infarction without residual deficits
CPT/HCPCS: 36415; 36416; 36600; 51701; 70450; 71045; 71275; 74018; 74177; 80048; 80053; 80306; 80307; 81001; 82805; 83605; 83690; 83735; 83880; 84100; 84145; 84484; 85025; 86850; 86900; 86901; 87040; 87070; 87077; 87081; 87086; 87149; 87205; 93005; 94640; 94660; 96365; 96367; 96368; J0360; J0456; J0692; J1644; J3370; J3370-JW; J3480; J3490; J7070; J7620; Q9967